=== PATIENT | female | born 1935 | race Caucasian/White ===

== ENCOUNTER 2021-06-20 19:23 | Inpatient (IN) | payer BC, MEDICARE ==
[~2021-06-20] VITALS: Ht 177.8 cm; Wt 56.1 kg
[2021-06-20 19:30] VITALS: BP 117/96
[2021-06-20 22:04] LABS: BASE EXCESS ABG 9 mmol/L (-3-3); HCO3 ABG 36 mmol/L (21-28); PO2 ABG 73 mmHg (65-108); SAT O2 ABG 94 % (92-99)
[2021-06-20] MEDS ORDERED: ZOLPIDEM 5 MG TABLET. PO PRN (22:15)
[2021-06-20] MEDS ORDERED: oxyCODONE/APAP 5/325 1 TAB TABLET PO PRN ×2 (22:15)
[2021-06-20] MEDS ORDERED: CALCIUM CARBONATE 500 MG TAB.CHEW PO PRN (22:15)
[2021-06-20] MEDS ORDERED: ELECTROLYTE (NON-ICU) PROTOCOL. MC PRN (22:15)
[2021-06-20] MEDS ORDERED: ONDANSETRON PF 4 MG/2 ML VIAL. IVP PRN (22:15)
[2021-06-20 22:43] LABS: PCO2 ABG 63 mmHg (35-46)
[2021-06-20 23:00] VITALS: BP 103/62
[2021-06-21 02:58] LABS: BASO % 0 % (0-3); EOS % 0 % (0-3); HEMOGLOBIN 8.8 g/dL (12.0-15.5); LYMPH # 0.7 x10^3/uL (1.0-4.8); LYMPH % 7 % (24-48); MEAN CORPUSCULAR HEMOGLOBIN 29 pg (25-35); MEAN CORPUSCULAR HGB CONC 31 g/dL (31-37); MEAN CORPUSCULAR VOLUME 91 fL (79-100); MONO # 0.1 x10^3/uL (0.0-1.1); MONO % 2 % (0-9); NEUT # 8.3 x10^3/uL (1.8-7.7); NEUT % 91 % (31-73); PLATELET COUNT 285 x10^3/uL (140-400); RED BLOOD COUNT 3.07 x10^6/uL (3.50-5.40); RED CELL DISTRIBUTION WIDTH 13.9 % (11.5-14.5); WHITE BLOOD COUNT 9.1 x10^3/uL (4.0-11.0)
[2021-06-21 03:00] VITALS: BP 112/66
[2021-06-21 03:21] LABS: ALBUMIN 2.2 g/dL (3.4-5.0); ALBUMIN/GLOBULIN RATIO 0.5 (1.0-1.7); CALCIUM 9.2 mg/dL (8.5-10.1); GFR 52.4; POTASSIUM 3.8 mmol/L (3.5-5.1); TOTAL BILIRUBIN 0.3 mg/dL (0.2-1.0); TOTAL PROTEIN 6.5 g/dL (6.4-8.2)
[2021-06-21] MEDS ORDERED: HEPARIN for SUB-Q USE 5,000 UNIT/ML VIAL. SQ SCH (06:00)
[2021-06-21 07:00] VITALS: BP 117/65
--- NOTE | 2021-06-21 08:32 | PDOC1 ---
History and Physical Date of Service: DOS: DATE: 06/21/21 TIME: 08:30 Chief Complaint: Chief Complain: Shortness of breath History of Present Illness: HPI: 85-year-old female with past medical history of COPD who comes in with shortness of breath at [facility]. Patient was transferred from there for pulmonology support. Patient states she was having shortness of breath for the past couple days and feeling weak. She does have some cough. Denies any fevers, chest pain, diarrhea, dysuria or abdominal pains. Patient lives with daughter and son-in-law at home and she is independent with some of her ADLs. She does rely on a walker. Patient currently is on BiPAP support. Her last ABG was 7.3 //. Past Medical/Surgical History: PMH/PSH: History of COPD Allergies: Allergies: Coded Allergies: No Known Drug Allergies (Unverified , 06/20/21) Family History: Family History: Reviewed with no relative findings in the chart Social History: Social History: Former smoker quit 1996. Denies any alcohol or drug abuse Current Medications: Current Medications Current Medications Ondansetron HCl (Zofran) 4 mg PRN Q6HRS PRN IVP NAUSEA/VOMITING; Start 06/20/21 at 22:15 Calcium Carbonate/ Glycine (Tums) 500 mg PRN Q3HRS PRN PO UPSET STOMACH; Start 06/20/21 at 22:15 Zolpidem Tartrate (Ambien) 5 mg PRN QHS PRN PO INSOMNIA, MAY REPEAT IN 1HR; Start 06/20/21 at 22:15 Info (Non-Icu Electrolyte Protocol) 1 ea PRN DAILY PRN MC SEE COMMENTS; Start 06/20/21 at 22:15 Oxycodone/ Acetaminophen (Percocet 5/325) 1 tab PRN Q4HRS PRN PO MILD PAIN, 1ST CHOICE; Start 06/20/21 at 22:15 Oxycodone/ Acetaminophen (Percocet 5/325) 2 tab PRN Q4HRS PRN PO MODERATE PAIN, SEVERE PAIN; Start 06/20/21 at 22:15 Senna/Docusate Sodium (Senna Plus) 1 tab BID PO ; Start 06/21/21 at 09:00 Heparin Sodium (Porcine) (Heparin Sodium) 5,000 unit Q8HRS SQ Last administered on 06/21/21at 06:11; Start 06/21/21 at 06:00 Prednisone (Prednisone) 40 mg DAILY08 PO ; Start 06/21/21 at 08:00 ROS: Review of Systems Review of System REVIEW OF SYSTEMS: GENERAL: Denies weakness SKIN: No bruising, hair changes or rashes. EYES: No blurred, double or loss of vision. NOSE AND THROAT: No history of nosebleeds, hoarseness or sore throat. HEART: No history of palpitations, chest pain or shortness of breath on exertion. LUNGS: Positive for shortness of breath GASTROINTESTINAL: Denies changes in appetite, nausea, vomiting, diarrhea or constipation. GENITOURINARY: No history of frequency, urgency, hesitancy or nocturia. NEUROLOGIC: Denies history of numbness, tingling, or tremor. PSYCHIATRIC: No history of panic, anxiety or depression. ENDOCRINE: No history of heat or cold intolerance, polyuria or polydipsia. EXTREMITIES: Denies joint pain, pain on walking or stiffness. Physical Exam: Vital Signs: Vital Signs Date Time Temp Pulse Resp B/P (MAP) Pulse Ox O2 Delivery O2 Flow Rate FiO2 06/21/21 07:45 97 06/21/21 07:00 98.2 87 18 117/65 (82) BiPAP/CPAP 98.2 Physcial Exam: General: Well developed, well nourished, no acute distress, well appearing while on BiPAP HEENT: Pupils equally round and reactive to light, EOMI, no discharge, normal conjunctiva Neck: Supple, no nuchal rigidity, no JVD, trachea midline, no tenderness Cardiac: RRR, no murmurs, no gallops, no rubs Chest/Lungs: Diminished throughout all lung soriano, no wheeze, no rhonchi, no crackles Abdomen: soft, non-distended, no guarding, no peritoneal signs, non-tender Back: No tenderness Extremities: no edema, pulses intact, non-tender,capillary refill <3 sec bilateral upper and lower extremities, Neuro: Alert and oriented x 4, no focal deficits, normal speech Labs: Labs: Laboratory Tests Test 06/20/21 21:55 06/21/21 02:40 O2 Saturation 94 % (92-99) Arterial Blood pH 7.37 (7.35-7.45) Arterial Blood pCO2 at Patient Temp 63 mmHg (35-46) Arterial Blood pO2 at Patient Temp 73 mmHg (65-108) Arterial Blood HCO3 36 mmol/L (21-28) Arterial Blood Base Excess 9 mmol/L (-3-3) White Blood Count 9.1 x10^3/uL (4.0-11.0) Red Blood Count 3.07 x10^6/uL (3.50-5.40) Hemoglobin 8.8 g/dL (12.0-15.5) Hematocrit 28.0 % (36.0-47.0) Mean Corpuscular Volume 91 fL (79-100) Mean Corpuscular Hemoglobin 29 pg (25-35) Mean Corpuscular Hemoglobin Concent 31 g/dL (31-37) Red Cell Distribution Width 13.9 % (11.5-14.5) Platelet Count 285 x10^3/uL (140-400) Neutrophils (%) (Auto) 91 % (31-73) Lymphocytes (%) (Auto) 7 % (24-48) Monocytes (%) (Auto) 2 % (0-9) Eosinophils (%) (Auto) 0 % (0-3) Basophils (%) (Auto) 0 % (0-3) Neutrophils # (Auto) 8.3 x10^3/uL (1.8-7.7) Lymphocytes # (Auto) 0.7 x10^3/uL (1.0-4.8) Monocytes # (Auto) 0.1 x10^3/uL (0.0-1.1) Eosinophils # (Auto) 0.0 x10^3/uL (0.0-0.7) Basophils # (Auto) 0.0 x10^3/uL (0.0-0.2) Sodium Level 149 mmol/L (136-145) Potassium Level 3.8 mmol/L (3.5-5.1) Chloride Level 106 mmol/L (98-107) Carbon Dioxide Level 36 mmol/L (21-32) Anion Gap 7 (6-14) Blood Urea Nitrogen 31 mg/dL (7-20) Creatinine 1.0 mg/dL (0.6-1.0) Estimated GFR (Cockcroft-Gault) 52.4 BUN/Creatinine Ratio 31 (6-20) Glucose Level 116 mg/dL (70-99) Calcium Level 9.2 mg/dL (8.5-10.1) Total Bilirubin 0.3 mg/dL (0.2-1.0) Aspartate Amino Transf (AST/SGOT) 12 U/L (15-37) Alanine Aminotransferase (ALT/SGPT) 16 U/L (14-59) Alkaline Phosphatase 64 U/L (46-116) Total Protein 6.5 g/dL (6.4-8.2) Albumin 2.2 g/dL (3.4-5.0) Albumin/Globulin Ratio 0.5 (1.0-1.7) Thyroid Stimulating Hormone (TSH) < 0.007 uIU/mL (0.358-3.74) Laboratory Tests Test 06/20/21 21:55 06/21/21 02:40 O2 Saturation 94 % (92-99) Arterial Blood pH 7.37 (7.35-7.45) Arterial Blood pCO2 at Patient Temp 63 mmHg (35-46) Arterial Blood pO2 at Patient Temp 73 mmHg (65-108) Arterial Blood HCO3 36 mmol/L (21-28) Arterial Blood Base Excess 9 mmol/L (-3-3) White Blood Count 9.1 x10^3/uL (4.0-11.0) Red Blood Count 3.07 x10^6/uL (3.50-5.40) Hemoglobin 8.8 g/dL (12.0-15.5) Hematocrit 28.0 % (36.0-47.0) Mean Corpuscular Volume 91 fL (79-100) Mean Corpuscular Hemoglobin 29 pg (25-35) Mean Corpuscular Hemoglobin Concent 31 g/dL (31-37) Red Cell Distribution Width 13.9 % (11.5-14.5) Platelet Count 285 x10^3/uL (140-400) Neutrophils (%) (Auto) 91 % (31-73) Lymphocytes (%) (Auto) 7 % (24-48) Monocytes (%) (Auto) 2 % (0-9) Eosinophils (%) (Auto) 0 % (0-3) Basophils (%) (Auto) 0 % (0-3) Neutrophils # (Auto) 8.3 x10^3/uL (1.8-7.7) Lymphocytes # (Auto) 0.7 x10^3/uL (1.0-4.8) Monocytes # (Auto) 0.1 x10^3/uL (0.0-1.1) Eosinophils # (Auto) 0.0 x10^3/uL (0.0-0.7) Basophils # (Auto) 0.0 x10^3/uL (0.0-0.2) Sodium Level 149 mmol/L (136-145) Potassium Level 3.8 mmol/L (3.5-5.1) Chloride Level 106 mmol/L (98-107) Carbon Dioxide Level 36 mmol/L (21-32) Anion Gap 7 (6-14) Blood Urea Nitrogen 31 mg/dL (7-20) Creatinine 1.0 mg/dL (0.6-1.0) Estimated GFR (Cockcroft-Gault) 52.4 BUN/Creatinine Ratio 31 (6-20) Glucose Level 116 mg/dL (70-99) Calcium Level 9.2 mg/dL (8.5-10.1) Total Bilirubin 0.3 mg/dL (0.2-1.0) Aspartate Amino Transf (AST/SGOT) 12 U/L (15-37) Alanine Aminotransferase (ALT/SGPT) 16 U/L (14-59) Alkaline Phosphatase 64 U/L (46-116) Total Protein 6.5 g/dL (6.4-8.2) Albumin 2.2 g/dL (3.4-5.0) Albumin/Globulin Ratio 0.5 (1.0-1.7) Thyroid Stimulating Hormone (TSH) < 0.007 uIU/mL (0.358-3.74) Images: Images CXR significant for small left pleural effusion and adjacent opacities. Assessment/Plan Assessment/Plan Acute hypoxic respiratory failure requiring BiPAP support Community-acquired pneumonia, possible gram-negative organisms History of COPD Admit to hospitalist service for further management Continue empiric IV antibiotics Pending MRSA screen and Legionella urine antigen Pulmonary consult O2 supplementation to maintain O2 saturation between 88 to 92% BiPAP as needed Repeat ABG as needed Lovenox for DVT prophylaxis Protonix while on steroids GI prophylaxis ADA diet CODE STATUS assumed full code Discussed with RN and SW Disposition pending pulmonary evaluation DPOA: Daughter In addition to my E/M visit, advance care planning done with A total time of 20 minutes was spent from 9:00 to 920 face to face in discussion regarding the patient's goals of care, CODE STATUS. Justifications for Admission Other Justification SERGIO DE LEÓN MD Jun 21, 2021 08:32
[2021-06-21 10:13] LABS: BASE EXCESS ABG 9 mmol/L (-3-3); HCO3 ABG 35 mmol/L (21-28); PCO2 ABG 53 mmHg (35-46); PO2 ABG 78 mmHg (65-108); SAT O2 ABG 95 % (92-99)
[2021-06-21 10:16] LABS: FIO2 ABG 30
[2021-06-21] MEDS ORDERED: PROCHLORPERAZINE 10 MG/2 ML VIAL. IV PRN (10:30)
[2021-06-21] MEDS ORDERED: SENNOSIDES 8.6 MG TABLET PO PRN (10:30)
[2021-06-21] MEDS ORDERED: ZOLPIDEM 5 MG TABLET. PO PRN (10:30)
[2021-06-21] MEDS ORDERED: LORazepam 0.5 MG TABLET PO PRN (10:30)
[2021-06-21] MEDS ORDERED: diphenhydrAMINE HCL 25 MG CAPSULE PO PRN ×2 (10:30)
[2021-06-21] MEDS ORDERED: ONDANSETRON PF 4 MG/2 ML VIAL. IVP PRN (10:30)
[2021-06-21] MEDS ORDERED: diphenhydrAMINE 50 MG/ML VIAL IVP PRN (10:30)
[2021-06-21] MEDS ORDERED: DEXTROSE 50% 25 GM / 50ML DISP.SYRIN. IV PRN (10:30)
[2021-06-21] MEDS ORDERED: ACETAMINOPHEN 325 MG TABLET. PO PRN (10:30)
[2021-06-21] MEDS ORDERED: DOCUSATE SODIUM 100 MG CAPSULE. PO PRN (10:30)
[2021-06-21 11:00] VITALS: BP 115/56
[2021-06-21] MEDS ORDERED: ENOXAPARIN 40 MG/0.4 ML SYRINGE. SQ SCH (11:00)
[2021-06-21] MEDS: DOXYCYCLINE HYCLATE 100 MG TABLET PO SCH ×2 (11:04→20:46)
[2021-06-21] MEDS: PANTOPRAZOLE 40 MG TABLET.DR. PO SCH (11:04)
[2021-06-21] MEDS: predniSONE 20 MG TABLET PO SCH (11:04)
[2021-06-21] MEDS: SENNOSIDES/DOCUSATE 8.6/50MG TABLET. PO SCH ×2 (11:04→20:47)
[2021-06-21] MEDS: cefTRIAXone IV Push 1 GM VIAL. IVP SCH (11:05)
--- NOTE | 2021-06-21 13:19 | NUR ---
Wound on R coccyx, buttock area not pictured d/t no camera available. Wound measured and wound dressing changed.
[2021-06-21 15:00] VITALS: BP 121/59
[2021-06-21 15:46] LABS: BASE EXCESS ABG 10 mmol/L (-3-3); HCO3 ABG 36 mmol/L (21-28); PCO2 ABG 55 mmHg (35-46); PO2 ABG 87 mmHg (65-108); SAT O2 ABG 96 % (92-99)
[2021-06-21 15:47] LABS: FIO2 ABG 30
--- NOTE | 2021-06-21 17:41 | NUR ---
Patient given a break off the bipap, 2L per nasal cannula applied at 1645. Will allow patient to have break, explained that patient should wear bipap through the night. Will continue to monitor.
[2021-06-21 19:00] VITALS: BP 123/58
[2021-06-21] MEDS: ENOXAPARIN 40 MG/0.4 ML SYRINGE. SQ SCH (20:46)
[2021-06-21 23:00] VITALS: BP 116/56
--- NOTE | 2021-06-21 23:01 | NUR ---
AMISHA DOES NOT WANT TO WEAR BIPAP DURING THE NIGHT. AFTER LOOKING AT ABG RESULTS TREND, INCLUDING THE ABGS AT [facility], IT SEEMS THAT PATIENT DOES NOT NEED TO WEAR BIPAP AT TINS TIME. PATIENT'S ABGS SHOW FULLY COMPENSATED RESPIRATORY ACIDOSIS, WITHOUT HYPOXEMIA. I WILL CONTINUE TO MONITOR PATIENT AND INTERVENE NEEDED.
[2021-06-22 02:32] VITALS: BP 113/60
--- NOTE | 2021-06-22 06:18 | RAD ---
XR CHEST 1V History: Shortness of breath. Comparison: 06/20/2021 Technique: Portable AP radiograph of the chest. Findings: The lungs are hyperinflated. There is prominence of the pulmonary interstitial markings. Increased co nspicuity of right lower lobe infiltrates. Small left effusion with left basilar opacities redemonstr ated. No pneumothorax. Right greater than left apical scarring. Prominent heart size. Calcification o f the aorta. Senescent changes of the spine and shoulders. Impression: 1. Increased conspicuity of right basilar opacities and persistent left basilar opacities concerning for multifocal infection. Electronically signed by: Clinton Kurtz MD (06/22/2021 6:15 AM) [facility]
--- NOTE | 2021-06-22 06:55 | CONS ---
DATE OF CONSULTATION: 06/22/2021 REASON FOR CONSULTATION: I was asked to see this 85-year-old lady for acute on chronic respiratory failure. HISTORY OF PRESENT ILLNESS: She is very hard of hearing. She has a history of 12-byyl-fjva smoking, quit smoking in 1996. She is on oxygen 2 liters per minute via nasal cannula. She does not know how long she has had shortness of breath, but her day nurse noticed hypoxemia and she did have shortness of breath. She presented to [facility] ER and transferred to [facility] for further evaluation. She was on BiPAP on arrival. She is now on 3 liters of oxygen. Her shortness of breath has improved. She does have cough with not much sputum production. She denies fever or chills. PAST MEDICAL HISTORY: COPD, chronic respiratory failure. ALLERGIES: No known drug allergies. MEDICATIONS: Currently, she is on Rocephin, doxycycline, Protonix, Lovenox. SOCIAL HISTORY: History of 34-fari-bfml smoking, quit smoking in 1996. FAMILY HISTORY: Hypertension. REVIEW OF SYSTEMS: As mentioned as above, other systems otherwise negative. PHYSICAL EXAMINATION: GENERAL: She is an elderly lady. VITAL SIGNS: Her O2 saturation on 3 liters of oxygen is 96%, respiratory rate 18, heart rate 87, blood pressure 113/60, temperature 97.7. HEENT: Normocephalic, atraumatic. Pupils equal, round, reactive to light. Nose is clear. Throat: There is shallow oropharynx. NECK: There is no lymphadenopathy or thyromegaly. CARDIOVASCULAR: Distant heart sounds. CHEST: Inspection is normal. LUNGS: Bilateral diminished breath sounds, bibasilar crackles, dullness at the left base. ABDOMEN: Soft. Bowel sounds are good. There is no mass. EXTREMITIES: There is trace edema. LYMPHATICS: There is no lymphadenopathy. NEUROLOGIC: Alert and oriented. LABORATORY DATA: I reviewed the following lab data: Chest x-ray shows bibasilar infiltrate, right more than left, slightly worse left small pleural effusion. WBC 9.1, hemoglobin 8.8, platelet 285. Influenza A and B pending. Rapid COVID negative. Sodium 149, potassium 3.8, chloride 106, CO2 36, BUN 31, creatinine 1. Procalcitonin 0.44. ABG on 06/20, 2155 hours, pH 7.37, pCO2 of 63, pO2 of 73. Yesterday afternoon, pH 7.43, pCO2 55, pO2 87 and 30% FiO2. IMPRESSION: 1. Acute on chronic respiratory failure, multifactorial in etiology including acute exacerbation of chronic obstructive pulmonary disease, pneumonia, rule out aspiration. 2. Abnormal chest x-ray. 3. Acute exacerbation of chronic obstructive pulmonary disease. 4. Pneumonia, rule out aspiration. 5. Ex-smoker. PLAN AND RECOMMENDATIONS: 1. Titrate FiO2 to keep O2 saturation 90%. 2. Continue BiPAP p.r.n. during day, continuously at night. 3. Follow up MRSA screen and legionella and strep pneumonia antigen and influenza A and B. Apparently, they are done at [facility]. 4. Continue prednisone 40 mg daily. 5. Lovenox for deep venous thrombosis prophylaxis. 6. Protonix for stress ulcer prophylaxis. 7. Continue Rocephin and doxycycline. 8. I will ask speech to evaluate her to make sure she does not have aspiration. 9. The findings and recommendations were discussed with RN and the patient. Thank you very much for allowing me to participate in care of this very nice lady. EZRA BOLDEN: Brain TID: [id number]
[2021-06-22 07:00] VITALS: BP 140/65
[2021-06-22 07:24] LABS: BASO % 0 % (0-3); EOS % 0 % (0-3); HEMOGLOBIN 9.8 g/dL (12.0-15.5); LYMPH # 1.2 x10^3/uL (1.0-4.8); LYMPH % 13 % (24-48); MEAN CORPUSCULAR HEMOGLOBIN 29 pg (25-35); MEAN CORPUSCULAR HGB CONC 32 g/dL (31-37); MEAN CORPUSCULAR VOLUME 90 fL (79-100); MONO # 0.7 x10^3/uL (0.0-1.1); MONO % 7 % (0-9); NEUT # 7.7 x10^3/uL (1.8-7.7); NEUT % 80 % (31-73); PLATELET COUNT 369 x10^3/uL (140-400); RED BLOOD COUNT 3.43 x10^6/uL (3.50-5.40); RED CELL DISTRIBUTION WIDTH 13.4 % (11.5-14.5); WHITE BLOOD COUNT 9.7 x10^3/uL (4.0-11.0)
[2021-06-22 07:37] LABS: CALCIUM 9.8 mg/dL (8.5-10.1); CREATININE 0.9 mg/dL (0.6-1.0); GFR 59.2; MAGNESIUM 2.4 mg/dL (1.8-2.4); PHOSPHORUS 3.7 mg/dL (2.6-4.7); POTASSIUM 3.6 mmol/L (3.5-5.1)
[2021-06-22] MEDS: PANTOPRAZOLE 40 MG TABLET.DR. PO SCH (07:56)
[2021-06-22] MEDS: LACTOBACILLUS RHAMNOSUS GG 1 CAPSULE. PO SCH ×2 (07:56→21:01)
[2021-06-22] MEDS: SENNOSIDES/DOCUSATE 8.6/50MG TABLET. PO SCH ×2 (07:56→21:00)
[2021-06-22] MEDS: DOXYCYCLINE HYCLATE 100 MG TABLET PO SCH ×2 (07:56→21:01)
[2021-06-22] MEDS: predniSONE 20 MG TABLET PO SCH (07:56)
--- NOTE | 2021-06-22 09:28 | PDOC ---
[employer] PROGRESS NOTE Date of Service DOS: DATE: 06/22/21 TIME: 09:27 Chief Complaint Chief Complaint Assessment/Plan Acute hypoxic respiratory failure requiring BiPAP support Community-acquired pneumonia, possible gram-negative organisms History of COPD Admit to hospitalist service for further management Continue empiric IV antibiotics Pending MRSA screen and Legionella urine antigen Pulmonary recommendations O2 supplementation to maintain O2 saturation between 88 to 92%, BiPAP as needed and continuous at night Repeat ABG as needed Lovenox for DVT prophylaxis Protonix while on steroids GI prophylaxis ADA diet CODE STATUS assumed full code Discussed with RN and SW Disposition pending pulmonary evaluation DPOA: Daughter History of Present Illness History of Present Illness 85-year-old female with past medical history of COPD who comes in with shortness of breath at [facility] ER. Patient was transferred from there for pulmonology support. Patient states she was having shortness of breath for the past couple days and feeling weak. She does have some cough. Denies any fevers, chest pain, diarrhea, dysuria or abdominal pains. Patient lives with daughter and son-in-law at home and she is independent with some of her ADLs. She does rely on a walker. Patient currently is on BiPAP support. Her last ABG was 7.3 763/73/36. 06/22/2021 No acute events overnight. Patient seen examined bedside. Currently patient saturating 93% on 3 L nasal cannula. AF and VSS. No complaints from patient at this time. Clinical improvement. Patient's chart, labs, images were reviewed and discussed with RN Vitals/I&O Vitals/I&O: Vital Signs Date Time Temp Pulse Resp B/P (MAP) Pulse Ox O2 Delivery O2 Flow Rate FiO2 06/22/21 07:00 98.1 92 22 140/65 (90) 93 Nasal Cannula 3.0 98.1 I & O 06/21/21 06/21/21 06/22/21 15:00 23:00 07:00 Intake Total 50 ml 0 ml Balance 50 ml 0 ml Physical Exam General: Alert, Oriented X3, Cooperative Heart: Regular rate Lungs: Clear Abdomen: Normal bowel sounds Extremities: No clubbing Skin: No rashes Labs Labs: Laboratory Tests Test 06/21/21 10:04 06/21/21 13:40 06/22/21 05:35 O2 Saturation 95 % (92-99) 96 % (92-99) Arterial Blood pH 7.44 (7.35-7.45) 7.43 (7.35-7.45) Arterial Blood pCO2 at Patient Temp 53 mmHg (35-46) 55 mmHg (35-46) Arterial Blood pO2 at Patient Temp 78 mmHg (65-108) 87 mmHg (65-108) Arterial Blood HCO3 35 mmol/L (21-28) 36 mmol/L (21-28) Arterial Blood Base Excess 9 mmol/L (-3-3) 10 mmol/L (-3-3) FiO2 30 30 White Blood Count 9.7 x10^3/uL (4.0-11.0) Red Blood Count 3.43 x10^6/uL (3.50-5.40) Hemoglobin 9.8 g/dL (12.0-15.5) Hematocrit 31.0 % (36.0-47.0) Mean Corpuscular Volume 90 fL (79-100) Mean Corpuscular Hemoglobin 29 pg (25-35) Mean Corpuscular Hemoglobin Concent 32 g/dL (31-37) Red Cell Distribution Width 13.4 % (11.5-14.5) Platelet Count 369 x10^3/uL (140-400) Neutrophils (%) (Auto) 80 % (31-73) Lymphocytes (%) (Auto) 13 % (24-48) Monocytes (%) (Auto) 7 % (0-9) Eosinophils (%) (Auto) 0 % (0-3) Basophils (%) (Auto) 0 % (0-3) Neutrophils # (Auto) 7.7 x10^3/uL (1.8-7.7) Lymphocytes # (Auto) 1.2 x10^3/uL (1.0-4.8) Monocytes # (Auto) 0.7 x10^3/uL (0.0-1.1) Eosinophils # (Auto) 0.0 x10^3/uL (0.0-0.7) Basophils # (Auto) 0.0 x10^3/uL (0.0-0.2) Sodium Level 146 mmol/L (136-145) Potassium Level 3.6 mmol/L (3.5-5.1) Chloride Level 104 mmol/L (98-107) Carbon Dioxide Level 36 mmol/L (21-32) Anion Gap 6 (6-14) Blood Urea Nitrogen 36 mg/dL (7-20) Creatinine 0.9 mg/dL (0.6-1.0) Estimated GFR (Cockcroft-Gault) 59.2 Glucose Level 80 mg/dL (70-99) Calcium Level 9.8 mg/dL (8.5-10.1) Phosphorus Level 3.7 mg/dL (2.6-4.7) Magnesium Level 2.4 mg/dL (1.8-2.4) Comment Review of Relevant I have reviewed the following items chun (where applicable) has been applied. Medications: Current Medications Medications (Trade) Dose Ordered Sig/Nikkie Route PRN Reason Start Time Stop Time Status Last Admin Dose Admin Pantoprazole Sodium (Protonix) 40 mg DAILYAC PO 06/21/21 11:00 06/22/21 07:56 Ceftriaxone Sodium (Rocephin) 1 gm Q24H IVP 06/21/21 11:00 06/21/21 11:05 Enoxaparin Sodium (Lovenox 40mg Syringe) 40 mg QHS SQ 06/21/21 21:00 06/21/21 20:46 Doxycycline Hyclate (Vibra-Tab) 100 mg BID PO 06/21/21 11:00 06/22/21 07:56 Lactobacillus Rhamnosus (Culturelle) 1 cap BID PO 06/22/21 09:00 06/22/21 07:56 Justifications for Admission Other Justification COPD exacerbation SERGIO DE LEÓN MD Jun 22, 2021 09:28
[2021-06-22 11:00] VITALS: BP 155/71
[2021-06-22] MEDS: cefTRIAXone IV Push 1 GM VIAL. IVP SCH (11:22)
[2021-06-22 11:44] LABS: CLARITY,URINE CLOUDY; COLOR,URINE YELLOW
[2021-06-22 11:45] LABS: BILIRUBIN,URINE NEGATIVE (NEG); NITRITE,URINE NEGATIVE (NEG); PH,URINE 5.5 (<5.0-8.0); PROTEIN,URINE NEGATIVE (NEG-TRACE); UROBILINOGEN,URINE 0.2 mg/dL (0.2 mg/dL)
[2021-06-22 11:49] LABS: BACTERIA,URINE FEW /HPF (0-FEW)
[2021-06-22 15:00] VITALS: BP 128/61
[2021-06-22 19:00] VITALS: BP 131/60
[2021-06-22] MEDS: ENOXAPARIN 40 MG/0.4 ML SYRINGE. SQ SCH (21:02)
[2021-06-22 23:00] VITALS: BP 134/62
[2021-06-23 03:00] VITALS: BP 156/85
[2021-06-23 07:00] VITALS: BP 152/73
[2021-06-23 07:19] LABS: CALCIUM 9.9 mg/dL (8.5-10.1); CREATININE 0.9 mg/dL (0.6-1.0); GFR 59.2; MAGNESIUM 2.3 mg/dL (1.8-2.4); POTASSIUM 3.8 mmol/L (3.5-5.1)
[2021-06-23 07:31] LABS: BASO # 0.1 x10^3/uL (0.0-0.2); BASO % 1 % (0-3); EOS % 0 % (0-3); HEMOGLOBIN 9.9 g/dL (12.0-15.5); LYMPH # 1.7 x10^3/uL (1.0-4.8); LYMPH % 18 % (24-48); MEAN CORPUSCULAR HEMOGLOBIN 29 pg (25-35); MEAN CORPUSCULAR HGB CONC 32 g/dL (31-37); MEAN CORPUSCULAR VOLUME 90 fL (79-100); MONO # 0.9 x10^3/uL (0.0-1.1); MONO % 10 % (0-9); NEUT # 6.8 x10^3/uL (1.8-7.7); NEUT % 71 % (31-73); PLATELET COUNT 373 x10^3/uL (140-400); RED BLOOD COUNT 3.44 x10^6/uL (3.50-5.40); RED CELL DISTRIBUTION WIDTH 13.5 % (11.5-14.5); WHITE BLOOD COUNT 9.6 x10^3/uL (4.0-11.0)
[2021-06-23] MEDS: PANTOPRAZOLE 40 MG TABLET.DR. PO SCH (07:54)
[2021-06-23] MEDS: DOXYCYCLINE HYCLATE 100 MG TABLET PO SCH ×2 (09:21→20:55)
[2021-06-23] MEDS: LACTOBACILLUS RHAMNOSUS GG 1 CAPSULE. PO SCH ×2 (09:21→20:54)
[2021-06-23] MEDS: SENNOSIDES/DOCUSATE 8.6/50MG TABLET. PO SCH ×2 (09:21→20:54)
[2021-06-23] MEDS: predniSONE 20 MG TABLET PO SCH (09:21)
[2021-06-23 10:30] VITALS: BP 134/73
[2021-06-23] MEDS ORDERED: BARIUM SULFATE 40% (APPLE) 148 GM PWD. PO ONE (11:00)
--- NOTE | 2021-06-23 11:15 | PDOC ---
PULMONARY PROGRESS NOTES DATE: 06/23/21 TIME: 11:13 Subjective Patient seen in radiology department having video swallow. Denies any shortness of breath. Vitals Vital Signs Date Time Temp Pulse Resp B/P (MAP) Pulse Ox O2 Delivery O2 Flow Rate FiO2 06/23/21 10:30 98.2 92 18 134/73 (93) 92 Nasal Cannula 2.0 98.2 General: Alert, No acute distress Lungs: Clear Cardiovascular: S1 Neuro Exam: Alert Extremities: No Edema Labs Laboratory Tests Test 06/21/21 13:40 06/22/21 05:35 06/22/21 10:49 06/23/21 06:40 O2 Saturation 96 % (92-99) Arterial Blood pH 7.43 (7.35-7.45) Arterial Blood pCO2 at Patient Temp 55 mmHg (35-46) Arterial Blood pO2 at Patient Temp 87 mmHg (65-108) Arterial Blood HCO3 36 mmol/L (21-28) Arterial Blood Base Excess 10 mmol/L (-3-3) FiO2 30 White Blood Count 9.7 x10^3/uL (4.0-11.0) 9.6 x10^3/uL (4.0-11.0) Red Blood Count 3.43 x10^6/uL (3.50-5.40) 3.44 x10^6/uL (3.50-5.40) Hemoglobin 9.8 g/dL (12.0-15.5) 9.9 g/dL (12.0-15.5) Hematocrit 31.0 % (36.0-47.0) 31.0 % (36.0-47.0) Mean Corpuscular Volume 90 fL (79-100) 90 fL (79-100) Mean Corpuscular Hemoglobin 29 pg (25-35) 29 pg (25-35) Mean Corpuscular Hemoglobin Concent 32 g/dL (31-37) 32 g/dL (31-37) Red Cell Distribution Width 13.4 % (11.5-14.5) 13.5 % (11.5-14.5) Platelet Count 369 x10^3/uL (140-400) 373 x10^3/uL (140-400) Neutrophils (%) (Auto) 80 % (31-73) 71 % (31-73) Lymphocytes (%) (Auto) 13 % (24-48) 18 % (24-48) Monocytes (%) (Auto) 7 % (0-9) 10 % (0-9) Eosinophils (%) (Auto) 0 % (0-3) 0 % (0-3) Basophils (%) (Auto) 0 % (0-3) 1 % (0-3) Neutrophils # (Auto) 7.7 x10^3/uL (1.8-7.7) 6.8 x10^3/uL (1.8-7.7) Lymphocytes # (Auto) 1.2 x10^3/uL (1.0-4.8) 1.7 x10^3/uL (1.0-4.8) Monocytes # (Auto) 0.7 x10^3/uL (0.0-1.1) 0.9 x10^3/uL (0.0-1.1) Eosinophils # (Auto) 0.0 x10^3/uL (0.0-0.7) 0.0 x10^3/uL (0.0-0.7) Basophils # (Auto) 0.0 x10^3/uL (0.0-0.2) 0.1 x10^3/uL (0.0-0.2) Sodium Level 146 mmol/L (136-145) 147 mmol/L (136-145) Potassium Level 3.6 mmol/L (3.5-5.1) 3.8 mmol/L (3.5-5.1) Chloride Level 104 mmol/L (98-107) 107 mmol/L (98-107) Carbon Dioxide Level 36 mmol/L (21-32) 39 mmol/L (21-32) Anion Gap 6 (6-14) 1 (6-14) Blood Urea Nitrogen 36 mg/dL (7-20) 27 mg/dL (7-20) Creatinine 0.9 mg/dL (0.6-1.0) 0.9 mg/dL (0.6-1.0) Estimated GFR (Cockcroft-Gault) 59.2 59.2 Glucose Level 80 mg/dL (70-99) 90 mg/dL (70-99) Calcium Level 9.8 mg/dL (8.5-10.1) 9.9 mg/dL (8.5-10.1) Phosphorus Level 3.7 mg/dL (2.6-4.7) Magnesium Level 2.4 mg/dL (1.8-2.4) 2.3 mg/dL (1.8-2.4) Urine Collection Type Unknown Urine Color Yellow Urine Clarity Cloudy Urine pH 5.5 (<5.0-8.0) Urine Specific [place] 1.015 (1.000-1.030) Urine Protein Negative mg/dL (NEG-TRACE) Urine Glucose (UA) Negative mg/dL (NEG) Urine Ketones (Stick) Negative mg/dL (NEG) Urine Blood Moderate (NEG) Urine Nitrite Negative (NEG) Urine Bilirubin Negative (NEG) Urine Urobilinogen Dipstick 0.2 mg/dL (0.2 mg/dL) Urine Leukocyte Esterase Negative (NEG) Urine RBC 1-2 /HPF (0-2) Urine WBC 5-10 /HPF (0-4) Urine Squamous Epithelial Cells Few /LPF Urine Transitional Epithelial Cells Occ /LPF Urine Bacteria Few /HPF (0-FEW) Laboratory Tests Test 06/23/21 06:40 White Blood Count 9.6 x10^3/uL (4.0-11.0) Red Blood Count 3.44 x10^6/uL (3.50-5.40) Hemoglobin 9.9 g/dL (12.0-15.5) Hematocrit 31.0 % (36.0-47.0) Mean Corpuscular Volume 90 fL (79-100) Mean Corpuscular Hemoglobin 29 pg (25-35) Mean Corpuscular Hemoglobin Concent 32 g/dL (31-37) Red Cell Distribution Width 13.5 % (11.5-14.5) Platelet Count 373 x10^3/uL (140-400) Neutrophils (%) (Auto) 71 % (31-73) Lymphocytes (%) (Auto) 18 % (24-48) Monocytes (%) (Auto) 10 % (0-9) Eosinophils (%) (Auto) 0 % (0-3) Basophils (%) (Auto) 1 % (0-3) Neutrophils # (Auto) 6.8 x10^3/uL (1.8-7.7) Lymphocytes # (Auto) 1.7 x10^3/uL (1.0-4.8) Monocytes # (Auto) 0.9 x10^3/uL (0.0-1.1) Eosinophils # (Auto) 0.0 x10^3/uL (0.0-0.7) Basophils # (Auto) 0.1 x10^3/uL (0.0-0.2) Sodium Level 147 mmol/L (136-145) Potassium Level 3.8 mmol/L (3.5-5.1) Chloride Level 107 mmol/L (98-107) Carbon Dioxide Level 39 mmol/L (21-32) Anion Gap 1 (6-14) Blood Urea Nitrogen 27 mg/dL (7-20) Creatinine 0.9 mg/dL (0.6-1.0) Estimated GFR (Cockcroft-Gault) 59.2 Glucose Level 90 mg/dL (70-99) Calcium Level 9.9 mg/dL (8.5-10.1) Magnesium Level 2.3 mg/dL (1.8-2.4) Impression . 1. Acute on chronic hypercapnic respiratory failure, multifactorial in etiology including acute exacerbation of chronic obstructive pulmonary disease, pneumonia, rule out aspiration. 2. Abnormal chest x-ray. With chronic appearing right upper lobe infiltrate and some prominent basal markings 3. Acute exacerbation of chronic obstructive pulmonary disease. 4. Pneumonia, rule out aspiration. 5. Ex-smoker. Plan . 1. Titrate FiO2 to keep O2 saturation 90%. Hypercapnia is now compensated. 2. Continue BiPAP p.r.n. during day, continuously at night. 3. Follow up MRSA screen and legionella and strep pneumonia antigen and influenza A and B. Apparently, they are done at [facility]. 4. Continue prednisone 40 mg daily. 5. Lovenox for deep venous thrombosis prophylaxis. 6. Protonix for stress ulcer prophylaxis. 7. Continue Rocephin and doxycycline. 8. I will ask speech to evaluate her to make sure she does not have aspiration. NI MARLEY MD Jun 23, 2021 11:15
--- NOTE | 2021-06-23 11:29 | PDOC ---
[employer] PROGRESS NOTE Date of Service DOS: DATE: 06/23/21 TIME: 11:27 Chief Complaint Chief Complaint Assessment/Plan Acute hypoxic respiratory failure requiring BiPAP support Community-acquired pneumonia, possible gram-negative organisms History of COPD Admit to hospitalist service for further management Continue empiric IV antibiotics Pending MRSA screen and Legionella urine antigen Pulmonary recommendations O2 supplementation to maintain O2 saturation between 88 to 92%, BiPAP as needed and continuous at night Repeat ABG as needed Lovenox for DVT prophylaxis Protonix while on steroids GI prophylaxis ADA diet CODE STATUS assumed full code Discussed with RN and SW Disposition pending pulmonary evaluation DPOA: Daughter History of Present Illness History of Present Illness 85-year-old female with past medical history of COPD who comes in with shortness of breath at [facility] ER. Patient was transferred from there for pulmonology support. Patient states she was having shortness of breath for the past couple days and feeling weak. She does have some cough. Denies any fevers, chest pain, diarrhea, dysuria or abdominal pains. Patient lives with daughter and son-in-law at home and she is independent with some of her ADLs. She does rely on a walker. Patient currently is on BiPAP support. Her last ABG was 7.3 763/73/36. 06/22/2021 No acute events overnight. Patient seen examined bedside. Currently patient saturating 93% on 3 L nasal cannula. AF and VSS. No complaints from patient at this time. Clinical improvement. Patient's chart, labs, images were reviewed and discussed with RN 06/23/2021 No acute events overnight. Patient seen examined bedside. Saturating 95% on 2 L nasal cannula. Not dyspneic upon my encounter. Speech's ED evaluated and recommended video swallow. Pending video swallow today. Pending PT OT evaluation for possible SNF placement. Patient's chart, labs, images were reviewed and discussed with RN Vitals/I&O Vitals/I&O: Vital Signs Date Time Temp Pulse Resp B/P (MAP) Pulse Ox O2 Delivery O2 Flow Rate FiO2 06/23/21 10:30 98.2 92 18 134/73 (93) 92 Nasal Cannula 2.0 98.2 I & O 06/22/21 06/22/21 06/23/21 15:00 23:00 07:00 Intake Total 240 ml 100 ml Balance 240 ml 100 ml Physical Exam General: Alert, Oriented X3, Cooperative Heart: Regular rate Lungs: Clear Abdomen: Normal bowel sounds Extremities: No clubbing Skin: No rashes Labs Labs: Laboratory Tests Test 06/23/21 06:40 White Blood Count 9.6 x10^3/uL (4.0-11.0) Red Blood Count 3.44 x10^6/uL (3.50-5.40) Hemoglobin 9.9 g/dL (12.0-15.5) Hematocrit 31.0 % (36.0-47.0) Mean Corpuscular Volume 90 fL (79-100) Mean Corpuscular Hemoglobin 29 pg (25-35) Mean Corpuscular Hemoglobin Concent 32 g/dL (31-37) Red Cell Distribution Width 13.5 % (11.5-14.5) Platelet Count 373 x10^3/uL (140-400) Neutrophils (%) (Auto) 71 % (31-73) Lymphocytes (%) (Auto) 18 % (24-48) Monocytes (%) (Auto) 10 % (0-9) Eosinophils (%) (Auto) 0 % (0-3) Basophils (%) (Auto) 1 % (0-3) Neutrophils # (Auto) 6.8 x10^3/uL (1.8-7.7) Lymphocytes # (Auto) 1.7 x10^3/uL (1.0-4.8) Monocytes # (Auto) 0.9 x10^3/uL (0.0-1.1) Eosinophils # (Auto) 0.0 x10^3/uL (0.0-0.7) Basophils # (Auto) 0.1 x10^3/uL (0.0-0.2) Sodium Level 147 mmol/L (136-145) Potassium Level 3.8 mmol/L (3.5-5.1) Chloride Level 107 mmol/L (98-107) Carbon Dioxide Level 39 mmol/L (21-32) Anion Gap 1 (6-14) Blood Urea Nitrogen 27 mg/dL (7-20) Creatinine 0.9 mg/dL (0.6-1.0) Estimated GFR (Cockcroft-Gault) 59.2 Glucose Level 90 mg/dL (70-99) Calcium Level 9.9 mg/dL (8.5-10.1) Magnesium Level 2.3 mg/dL (1.8-2.4) Comment Review of Relevant I have reviewed the following items chun (where applicable) has been applied. Medications: Current Medications Medications (Trade) Dose Ordered Sig/Nikkie Route PRN Reason Start Time Stop Time Status Last Admin Dose Admin Barium Sulfate (Varibar Thin Liquid Apple) 148 gm 1X ONCE PO 06/23/21 11:00 06/23/21 11:01 DC 06/23/21 11:10 Justifications for Admission Other Justification COPD exacerbation SERGIO DE LEÓN MD Jun 23, 2021 11:28
[2021-06-23] MEDS: cefTRIAXone IV Push 1 GM VIAL. IVP SCH (11:31)
--- NOTE | 2021-06-23 12:53 | NUR ---
SW following. Discussed with RN, pt from home with daughter, 2L, cardiac diet. Pt had a video swallow today- RN advised she needs to speak with pt's daughter about result. Therapy recommending SNF. SW awaiting RN conversation with pt's daughter before continuing with discharge planning. SW will continue to follow.
--- NOTE | 2021-06-23 13:01 | RAD ---
DG VIDEO SWALLOW STUDY Reason for Examination: Reason: dysphagia FLUORO TIME 3.0 MIN / With the patient in the lateral projection, using video observation and recording, the patient was as ked to swallow barium liquid, barium nectar, barium impregnated pudding, and chew and swallow barium impregnated mixed consistency and cracker. Deep penetration aspiration with thin and nectar consistencies. Improved with chin tuck maneuver. Pir iform and vallecular residual with thick consistencies. No definite aspiration although evaluation is degraded due to overlying structures. Interpretation (personally supervised): Total fluoroscopy time was 3 minutes Fluoroscopic spot images: 1 Impression: 1. Deep penetration and aspiration with thin and nectar consistencies. No definite aspiration. Please refer to speech pathology notes for further details. Electronically signed by: Anthony Hernandez DO (06/23/2021 12:58 PM) [id number]
[2021-06-23 14:58] VITALS: BP 129/69
[2021-06-23 19:00] VITALS: BP 144/65
[2021-06-23] MEDS: ENOXAPARIN 40 MG/0.4 ML SYRINGE. SQ SCH (20:53)
[2021-06-23 23:04] VITALS: BP 148/81
[2021-06-24 03:31] VITALS: BP 163/81
[2021-06-24 07:00] VITALS: BP 155/85
[2021-06-24 07:40] LABS: BASO % 0 % (0-3); EOS % 0 % (0-3); HEMATOCRIT 31.9 % (36.0-47.0); HEMOGLOBIN 10.4 g/dL (12.0-15.5); LYMPH # 1.3 x10^3/uL (1.0-4.8); LYMPH % 16 % (24-48); MEAN CORPUSCULAR HEMOGLOBIN 30 pg (25-35); MEAN CORPUSCULAR HGB CONC 33 g/dL (31-37); MEAN CORPUSCULAR VOLUME 91 fL (79-100); MONO % 12 % (0-9); NEUT # 5.8 x10^3/uL (1.8-7.7); NEUT % 72 % (31-73); PLATELET COUNT 374 x10^3/uL (140-400); RED CELL DISTRIBUTION WIDTH 13.3 % (11.5-14.5); WHITE BLOOD COUNT 8.1 x10^3/uL (4.0-11.0)
[2021-06-24 07:50] LABS: CALCIUM 9.7 mg/dL (8.5-10.1); CREATININE 0.9 mg/dL (0.6-1.0); GFR 59.2; MAGNESIUM 2.3 mg/dL (1.8-2.4); POTASSIUM 3.6 mmol/L (3.5-5.1)
[2021-06-24] MEDS: SENNOSIDES/DOCUSATE 8.6/50MG TABLET. PO SCH ×2 (09:00→20:58)
--- NOTE | 2021-06-24 10:02 | PDOC ---
PULMONARY PROGRESS NOTES DATE: 06/24/21 TIME: 10:01 Subjective Patient denies any increased shortness of breath. Vitals Vital Signs Date Time Temp Pulse Resp B/P (MAP) Pulse Ox O2 Delivery O2 Flow Rate FiO2 06/24/21 07:35 93 Nasal Cannula 2.0 06/24/21 07:00 98.7 87 20 155/85 (108) 98.7 General: Alert, No acute distress Lungs: Clear Cardiovascular: S1 Neuro Exam: Alert Extremities: No Edema Labs Laboratory Tests Test 06/22/21 10:49 06/23/21 06:40 06/24/21 06:55 Urine Collection Type Unknown Urine Color Yellow Urine Clarity Cloudy Urine pH 5.5 (<5.0-8.0) Urine Specific Candor 1.015 (1.000-1.030) Urine Protein Negative mg/dL (NEG-TRACE) Urine Glucose (UA) Negative mg/dL (NEG) Urine Ketones (Stick) Negative mg/dL (NEG) Urine Blood Moderate (NEG) Urine Nitrite Negative (NEG) Urine Bilirubin Negative (NEG) Urine Urobilinogen Dipstick 0.2 mg/dL (0.2 mg/dL) Urine Leukocyte Esterase Negative (NEG) Urine RBC 1-2 /HPF (0-2) Urine WBC 5-10 /HPF (0-4) Urine Squamous Epithelial Cells Few /LPF Urine Transitional Epithelial Cells Occ /LPF Urine Bacteria Few /HPF (0-FEW) White Blood Count 9.6 x10^3/uL (4.0-11.0) 8.1 x10^3/uL (4.0-11.0) Red Blood Count 3.44 x10^6/uL (3.50-5.40) 3.50 x10^6/uL (3.50-5.40) Hemoglobin 9.9 g/dL (12.0-15.5) 10.4 g/dL (12.0-15.5) Hematocrit 31.0 % (36.0-47.0) 31.9 % (36.0-47.0) Mean Corpuscular Volume 90 fL (79-100) 91 fL (79-100) Mean Corpuscular Hemoglobin 29 pg (25-35) 30 pg (25-35) Mean Corpuscular Hemoglobin Concent 32 g/dL (31-37) 33 g/dL (31-37) Red Cell Distribution Width 13.5 % (11.5-14.5) 13.3 % (11.5-14.5) Platelet Count 373 x10^3/uL (140-400) 374 x10^3/uL (140-400) Neutrophils (%) (Auto) 71 % (31-73) 72 % (31-73) Lymphocytes (%) (Auto) 18 % (24-48) 16 % (24-48) Monocytes (%) (Auto) 10 % (0-9) 12 % (0-9) Eosinophils (%) (Auto) 0 % (0-3) 0 % (0-3) Basophils (%) (Auto) 1 % (0-3) 0 % (0-3) Neutrophils # (Auto) 6.8 x10^3/uL (1.8-7.7) 5.8 x10^3/uL (1.8-7.7) Lymphocytes # (Auto) 1.7 x10^3/uL (1.0-4.8) 1.3 x10^3/uL (1.0-4.8) Monocytes # (Auto) 0.9 x10^3/uL (0.0-1.1) 1.0 x10^3/uL (0.0-1.1) Eosinophils # (Auto) 0.0 x10^3/uL (0.0-0.7) 0.0 x10^3/uL (0.0-0.7) Basophils # (Auto) 0.1 x10^3/uL (0.0-0.2) 0.0 x10^3/uL (0.0-0.2) Sodium Level 147 mmol/L (136-145) 149 mmol/L (136-145) Potassium Level 3.8 mmol/L (3.5-5.1) 3.6 mmol/L (3.5-5.1) Chloride Level 107 mmol/L (98-107) 107 mmol/L (98-107) Carbon Dioxide Level 39 mmol/L (21-32) 40 mmol/L (21-32) Anion Gap 1 (6-14) 2 (6-14) Blood Urea Nitrogen 27 mg/dL (7-20) 23 mg/dL (7-20) Creatinine 0.9 mg/dL (0.6-1.0) 0.9 mg/dL (0.6-1.0) Estimated GFR (Cockcroft-Gault) 59.2 59.2 Glucose Level 90 mg/dL (70-99) 125 mg/dL (70-99) Calcium Level 9.9 mg/dL (8.5-10.1) 9.7 mg/dL (8.5-10.1) Magnesium Level 2.3 mg/dL (1.8-2.4) 2.3 mg/dL (1.8-2.4) Laboratory Tests Test 06/24/21 06:55 White Blood Count 8.1 x10^3/uL (4.0-11.0) Red Blood Count 3.50 x10^6/uL (3.50-5.40) Hemoglobin 10.4 g/dL (12.0-15.5) Hematocrit 31.9 % (36.0-47.0) Mean Corpuscular Volume 91 fL (79-100) Mean Corpuscular Hemoglobin 30 pg (25-35) Mean Corpuscular Hemoglobin Concent 33 g/dL (31-37) Red Cell Distribution Width 13.3 % (11.5-14.5) Platelet Count 374 x10^3/uL (140-400) Neutrophils (%) (Auto) 72 % (31-73) Lymphocytes (%) (Auto) 16 % (24-48) Monocytes (%) (Auto) 12 % (0-9) Eosinophils (%) (Auto) 0 % (0-3) Basophils (%) (Auto) 0 % (0-3) Neutrophils # (Auto) 5.8 x10^3/uL (1.8-7.7) Lymphocytes # (Auto) 1.3 x10^3/uL (1.0-4.8) Monocytes # (Auto) 1.0 x10^3/uL (0.0-1.1) Eosinophils # (Auto) 0.0 x10^3/uL (0.0-0.7) Basophils # (Auto) 0.0 x10^3/uL (0.0-0.2) Sodium Level 149 mmol/L (136-145) Potassium Level 3.6 mmol/L (3.5-5.1) Chloride Level 107 mmol/L (98-107) Carbon Dioxide Level 40 mmol/L (21-32) Anion Gap 2 (6-14) Blood Urea Nitrogen 23 mg/dL (7-20) Creatinine 0.9 mg/dL (0.6-1.0) Estimated GFR (Cockcroft-Gault) 59.2 Glucose Level 125 mg/dL (70-99) Calcium Level 9.7 mg/dL (8.5-10.1) Magnesium Level 2.3 mg/dL (1.8-2.4) Impression . 1. Acute on chronic hypercapnic respiratory failure, multifactorial in etiology including acute exacerbation of chronic obstructive pulmonary disease, pneumonia, rule out aspiration. ABG shows compensated hypercapnia with BiPAP. 2. Abnormal chest x-ray. With chronic appearing right upper lobe infiltrate and some prominent basal markings 3. Acute exacerbation of chronic obstructive pulmonary disease. 4. Pneumonia, rule out aspiration. 5. Ex-smoker. Plan . 1. Titrate FiO2 to keep O2 saturation 90%. Hypercapnia is now compensated. 2. Continue BiPAP continuously at night. 3. Follow up MRSA screen and legionella and strep pneumonia antigen and influenza A and B. Apparently, they are done at [facility]. 4. Continue prednisone 40 mg daily. 5. Lovenox for deep venous thrombosis prophylaxis. 6. Protonix for stress ulcer prophylaxis. 7. Continue Rocephin and doxycycline. 8. Dysphagia diet per video swallow results. NI MARLEY MD Jun 24, 2021 10:02
[2021-06-24] MEDS: ASCORBIC ACID 500 MG TABLET PO SCH (10:54)
[2021-06-24] MEDS: predniSONE 20 MG TABLET PO SCH (10:54)
[2021-06-24] MEDS: MULTIVITAMIN with MINERAL TABLET. PO SCH (10:54)
[2021-06-24] MEDS: LACTOBACILLUS RHAMNOSUS GG 1 CAPSULE. PO SCH ×2 (10:54→20:58)
[2021-06-24] MEDS: PANTOPRAZOLE 40 MG TABLET.DR. PO SCH (10:54)
[2021-06-24] MEDS: cefTRIAXone IV Push 1 GM VIAL. IVP SCH (10:55)
[2021-06-24] MEDS: DOXYCYCLINE HYCLATE 100 MG TABLET PO SCH ×2 (10:55→20:57)
[2021-06-24 11:00] VITALS: BP 150/72
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
--- NOTE | 2021-06-24 13:43 | NUR ---
Nurse's note: Patient refused to take her medicines during breakfast. They were given later in the morning.
[2021-06-24 14:56] VITALS: BP 128/74
--- NOTE | 2021-06-24 16:30 | NUR ---
Wound/Ostomy Care Wound Type/Assessment: Patient seen per wound care consult. See wound assessment. 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 This wound appears to be an old wound, that was probably much worse at some point. Patient is poor historian as she is very confused at this time. Wound cleansed and assessed. There is undermining noted from 12-12 at 0.3cm with pale pink tissue in the base. Patient had hydrocolloid on nose, removed dressing and no wound area is healed this was most likely from wearing a mask. skin prep applied to this area on nose. Patient assisted to commode via assist and walker. Treatment Recommendations/Plan: Recommendations for Hydrofera Blue packed to wound bed and covered with foam dressing. Change on Wednesday and Wednesday. Dressing applied. Education provided: Patient educated on POC, will need reorientated due to mental status. Offloading surface/device: We will order a wheelchair cushion for this patient. Recommended Referrals/Tests: N/ A Discharge Recommendations for dressings: Dressing change instructions left in room. No other wounds noted. Patient back in chair and alarm in place, call light in reach. Wound care will follow up on 07/02/21.
[2021-06-24 19:00] VITALS: BP 152/79
[2021-06-24] MEDS: CEFDINIR 300 MG CAPSULE PO SCH (20:57)
[2021-06-24] MEDS: ENOXAPARIN 40 MG/0.4 ML SYRINGE. SQ SCH (20:57)
[2021-06-24 23:03] VITALS: BP 146/85
[2021-06-25 03:29] VITALS: BP 151/75
[2021-06-25 07:00] VITALS: BP 139/69
[2021-06-25] MEDS: PANTOPRAZOLE 40 MG TABLET.DR. PO SCH (07:52)
[2021-06-25] MEDS: predniSONE 20 MG TABLET PO SCH (07:52)
[2021-06-25] MEDS: SENNOSIDES/DOCUSATE 8.6/50MG TABLET. PO SCH ×2 (10:48→20:22)
[2021-06-25] MEDS: DOXYCYCLINE HYCLATE 100 MG TABLET PO SCH ×2 (10:48→20:22)
[2021-06-25] MEDS: ASCORBIC ACID 500 MG TABLET PO SCH (10:48)
[2021-06-25] MEDS: LACTOBACILLUS RHAMNOSUS GG 1 CAPSULE. PO SCH ×2 (10:48→20:21)
--- NOTE | 2021-06-25 10:48 | PDOC ---
PULMONARY PROGRESS NOTES DATE: 06/25/21 TIME: 10:48 Subjective Patient denies any increased shortness of breath. Vitals Vital Signs Date Time Temp Pulse Resp B/P (MAP) Pulse Ox O2 Delivery O2 Flow Rate FiO2 06/25/21 07:37 Nasal Cannula 2.0 06/25/21 07:00 98.3 84 20 139/69 (92) 99 98.3 General: Alert, No acute distress Lungs: Clear Cardiovascular: S1 Neuro Exam: Alert Extremities: No Edema Labs Laboratory Tests Test 06/24/21 06:55 White Blood Count 8.1 x10^3/uL (4.0-11.0) Red Blood Count 3.50 x10^6/uL (3.50-5.40) Hemoglobin 10.4 g/dL (12.0-15.5) Hematocrit 31.9 % (36.0-47.0) Mean Corpuscular Volume 91 fL (79-100) Mean Corpuscular Hemoglobin 30 pg (25-35) Mean Corpuscular Hemoglobin Concent 33 g/dL (31-37) Red Cell Distribution Width 13.3 % (11.5-14.5) Platelet Count 374 x10^3/uL (140-400) Neutrophils (%) (Auto) 72 % (31-73) Lymphocytes (%) (Auto) 16 % (24-48) Monocytes (%) (Auto) 12 % (0-9) Eosinophils (%) (Auto) 0 % (0-3) Basophils (%) (Auto) 0 % (0-3) Neutrophils # (Auto) 5.8 x10^3/uL (1.8-7.7) Lymphocytes # (Auto) 1.3 x10^3/uL (1.0-4.8) Monocytes # (Auto) 1.0 x10^3/uL (0.0-1.1) Eosinophils # (Auto) 0.0 x10^3/uL (0.0-0.7) Basophils # (Auto) 0.0 x10^3/uL (0.0-0.2) Sodium Level 149 mmol/L (136-145) Potassium Level 3.6 mmol/L (3.5-5.1) Chloride Level 107 mmol/L (98-107) Carbon Dioxide Level 40 mmol/L (21-32) Anion Gap 2 (6-14) Blood Urea Nitrogen 23 mg/dL (7-20) Creatinine 0.9 mg/dL (0.6-1.0) Estimated GFR (Cockcroft-Gault) 59.2 Glucose Level 125 mg/dL (70-99) Calcium Level 9.7 mg/dL (8.5-10.1) Magnesium Level 2.3 mg/dL (1.8-2.4) Impression . 1. Acute on chronic hypercapnic respiratory failure, multifactorial in etiology including acute exacerbation of chronic obstructive pulmonary disease, pneumonia, rule out aspiration. ABG shows compensated hypercapnia with BiPAP. 2. Abnormal chest x-ray. With chronic appearing right upper lobe infiltrate and some prominent basal markings 3. Acute exacerbation of chronic obstructive pulmonary disease. 4. Pneumonia, rule out aspiration. 5. Ex-smoker. Plan . 1. Titrate FiO2 to keep O2 saturation 90%. Hypercapnia is now compensated. 2. Continue BiPAP continuously at night. 3. Follow up MRSA screen and legionella and strep pneumonia antigen and influenza A and B. Apparently, they are done at [facility]. 4. Continue prednisone 40 mg daily. 5. Lovenox for deep venous thrombosis prophylaxis. 6. Protonix for stress ulcer prophylaxis. 7. Continue Rocephin and doxycycline. 8. Dysphagia diet per video swallow results. NI MARLEY MD Jun 25, 2021 10:48
[2021-06-25] MEDS: CEFDINIR 300 MG CAPSULE PO SCH ×2 (10:49→20:22)
[2021-06-25] MEDS: MULTIVITAMIN with MINERAL TABLET. PO SCH (10:49)
--- NOTE | 2021-06-25 10:52 | PDOC ---
[employer] PROGRESS NOTE Date of Service DOS: DATE: 06/25/21 TIME: 10:52 Chief Complaint Chief Complaint Assessment/Plan Acute hypoxic respiratory failure requiring BiPAP support Community-acquired pneumonia, possible gram-negative organisms History of COPD Admit to hospitalist service for further management Continue empiric IV antibiotics Pending MRSA screen and Legionella urine antigen Pulmonary recommendations O2 supplementation to maintain O2 saturation between 88 to 92%, BiPAP as needed and continuous at night Repeat ABG as needed Lovenox for DVT prophylaxis Protonix while on steroids GI prophylaxis ADA diet CODE STATUS assumed full code Discussed with RN and SW Disposition pending pulmonary evaluation DPOA: Daughter History of Present Illness History of Present Illness 85-year-old female with past medical history of COPD who comes in with shortness of breath at [facility] ER. Patient was transferred from there for pulmonology support. Patient states she was having shortness of breath for the past couple days and feeling weak. She does have some cough. Denies any fevers, chest pain, diarrhea, dysuria or abdominal pains. Patient lives with daughter and son-in-law at home and she is independent with some of her ADLs. She does rely on a walker. Patient currently is on BiPAP support. Her last ABG was 7.3 763/73/36. 06/22/2021 No acute events overnight. Patient seen examined bedside. Currently patient saturating 93% on 3 L nasal cannula. AF and VSS. No complaints from patient at this time. Clinical improvement. Patient's chart, labs, images were reviewed and discussed with RN 06/23/2021 No acute events overnight. Patient seen examined bedside. Saturating 95% on 2 L nasal cannula. Not dyspneic upon my encounter. Speech's ED evaluated and recommended video swallow. Pending video swallow today. Pending PT OT evaluation for possible SNF placement. Patient's chart, labs, images were reviewed and discussed with RN 06/24/2021 No acute events overnight. Patient seen examined bedside. No dyspnea upon my encounter. Saturating 90% on 2 L nasal cannula which is her baseline. Video swallow was completed yesterday. Recommendations are for chin tuck with regular diet and thin liquids. No aspiration precautions or modified diet needed. We will continue with prednisone 40 mg daily and antibiotics. Pending placement. Will follow up with administrator social welfare. Patient's chart, labs, images were reviewed and discussed with RN 06/25/2021 Pending [facility] placement. Patient's chart, labs, images were reviewed and discussed with RN Vitals/I&O Vitals/I&O: Vital Signs Date Time Temp Pulse Resp B/P (MAP) Pulse Ox O2 Delivery O2 Flow Rate FiO2 06/25/21 07:37 Nasal Cannula 2.0 06/25/21 07:00 98.3 84 20 139/69 (92) 99 98.3 I & O 06/24/21 06/24/21 06/25/21 15:00 23:00 07:00 Intake Total 480 ml 240 ml Balance 480 ml 240 ml Physical Exam General: Alert, Oriented X3, Cooperative Heart: Regular rate Lungs: Clear Abdomen: Normal bowel sounds Extremities: No clubbing Skin: No rashes Comment Review of Relevant I have reviewed the following items chun (where applicable) has been applied. Medications: Current Medications Medications (Trade) Dose Ordered Sig/Nikkie Route PRN Reason Start Time Stop Time Status Last Admin Dose Admin Cefdinir (Omnicef) 300 mg BID PO 06/24/21 21:00 06/25/21 10:49 Justifications for Admission Other Justification COPD exacerbation SERGIO DE LEÓN MD Jun 25, 2021 10:52
[2021-06-25 11:00] VITALS: BP 148/76
--- NOTE | 2021-06-25 11:02 | NUR ---
[facility] following. Discussed with RN. [facility] never received referral yesterday. [facility] refaxed this morning. Awaiting acceptance decision and COVID PCR to return. [facility] will continue to follow. Addendum: 06/25/21 at 1339 by YAMILEX SIMPSON [facility] declined, pt accepted at [facility]. Family agreeable. Still awaiting COVID PCR result. RN notified.
[2021-06-25 15:00] VITALS: BP 136/66
[2021-06-25 19:00] VITALS: BP 131/60
[2021-06-25] MEDS: ENOXAPARIN 40 MG/0.4 ML SYRINGE. SQ SCH (20:21)
[2021-06-25 23:00] VITALS: BP 142/64
[2021-06-26 03:00] VITALS: BP 118/58
[2021-06-26 07:00] VITALS: BP 140/65
[2021-06-26] MEDS: predniSONE 20 MG TABLET PO SCH (08:29)
[2021-06-26] MEDS: DOXYCYCLINE HYCLATE 100 MG TABLET PO SCH (08:29)
[2021-06-26] MEDS: CEFDINIR 300 MG CAPSULE PO SCH (08:29)
[2021-06-26] MEDS: LACTOBACILLUS RHAMNOSUS GG 1 CAPSULE. PO SCH (08:29)
[2021-06-26] MEDS: ASCORBIC ACID 500 MG TABLET PO SCH (08:29)
[2021-06-26] MEDS: MULTIVITAMIN with MINERAL TABLET. PO SCH (08:29)
[2021-06-26] MEDS: PANTOPRAZOLE 40 MG TABLET.DR. PO SCH (08:29)
[2021-06-26] MEDS ORDERED: CEFD300C PO (08:30)
[2021-06-26] MEDS ORDERED: DOXY100T PO (08:30)
[2021-06-26] MEDS: SENNOSIDES/DOCUSATE 8.6/50MG TABLET. PO SCH (08:32)
--- NOTE | 2021-06-26 08:47 | SNU/HH DC ---
DISCHARGE ORDERS DISCHARGE INFORMATION: DISCHARGE DATE: Jun 26, 2021 CONDITION ON DISCHARGE: Stable CODE STATUS: Code Status: Full INTERMEDIATE: SNF STAY <30 DAYS: Yes POST DISCHARGE ORDERS: ACTIVITY ORDERS: Activity as tolerated WEIGHT BEARING STATUS: As tolerated DIET AFTER DISCHARGE: regular diet w/ thin liquids. Chin tuck swallow w/ ALL LIQUIDS. 1:1 feeding CHECKS AFTER DISCHARGE: CHECKS AFTER DISCHARGE: Check blood press - daily, Weigh Yourself Daily FOLLOW-UP: PHYSICIAN FOLLOW-UP: PCP within 2 weeks of discharge ADDITIONAL FOLLOW-UP: Gas Blender as needed LAB ORDERS FOR FOLLOW-UP: CBC, CMP TREATMENT/EQUIPMENT ORDERS: Physical Therapy For: Evalulation/Treatment Occupational Therapy For: Evaluation/Treatment DISCHARGE MEDICATIONS: Home Meds Active Scripts Ascorbic Acid (VITAMIN C) 500 Mg Tablet, 1000 MG PO DAILY for supplement for 30 Days, #60 TAB Prov:SERGIO DE LEÓN MD 06/26/21 Prednisone (PREDNISONE) 20 Mg Tablet, 40 MG PO DAILY08 for COPD for 5 Days, #10 TAB Prov:SERGIO DE LEÓN MD 06/26/21 Doxycycline Hyclate (DOXYCYCLINE HYCLATE) 100 Mg Tablet, 100 MG PO BID for pneumonia for 3 Days, #6 TAB Prov:SERGIO DE LEÓN MD 06/26/21 Cefdinir (CEFDINIR) 300 Mg Capsule, 300 MG PO BID for UTI for 3 Days, #6 CAP Prov:SERGIO DE LEÓN MD 06/26/21 SERGIO DE LEÓN MD Jun 26, 2021 08:47
[2021-06-26] MEDS ORDERED: ASCO500T4 PO (08:49)
[2021-06-26] MEDS ORDERED: PRED20TA PO (08:49)
--- NOTE | 2021-06-26 09:52 | PDOC ---
PULMONARY PROGRESS NOTES DATE: 06/26/21 TIME: 09:50 Subjective Patient denies any increased shortness of breath. Vitals Vital Signs Date Time Temp Pulse Resp B/P (MAP) Pulse Ox O2 Delivery O2 Flow Rate FiO2 06/26/21 07:00 98.2 93 22 140/65 (90) 96 Nasal Cannula 2.0 98.2 General: Alert, No acute distress Lungs: Clear Cardiovascular: S1 Neuro Exam: Alert Extremities: No Edema Labs Laboratory Tests Test 06/24/21 18:55 Coronavirus (COVID-19)(PCR) Not detected (NOT DETECTD) Medications Active Scripts Medications Dose Route/Sig Max Daily Dose Days Date Category Vitamin C (Ascorbic Acid) 500 Mg Tablet 1,000 Mg PO DAILY 30 06/26/21 Rx Prednisone 20 Mg Tablet 40 Mg PO DAILY08 5 06/26/21 Rx Doxycycline Hyclate 100 Mg Tablet 100 Mg PO BID 3 06/26/21 Rx Cefdinir 300 Mg Capsule 300 Mg PO BID 3 06/26/21 Rx Impression . 1. Acute on chronic hypercapnic respiratory failure, multifactorial in etiology including acute exacerbation of chronic obstructive pulmonary disease, pneumonia, rule out aspiration. ABG shows compensated hypercapnia with BiPAP. 2. Abnormal chest x-ray. With chronic appearing right upper lobe infiltrate and some prominent basal markings 3. Acute exacerbation of chronic obstructive pulmonary disease. 4. Pneumonia, rule out aspiration. 5. Ex-smoker. Plan . 1. Titrate FiO2 to keep O2 saturation 90%. Hypercapnia is now compensated. 2. nasal canula 3. Follow up MRSA screen and legionella and strep pneumonia antigen and influenza A and B. Apparently, they are done at [facility]. 4. Continue prednisone 40 mg daily. 5. Lovenox for deep venous thrombosis prophylaxis. 6. Protonix for stress ulcer prophylaxis. 7. Continue Rocephin and doxycycline. 8. Dysphagia diet per video swallow results. 9. ok with dc to [facility] Connell MD Jun 26, 2021 09:52
--- NOTE | 2021-06-26 10:18 | NUR ---
SW following. Discussed with RN, discharge orders faxed to [facility] - awaiting Dr. Moore to call [facility] to discuss the prednisone, then transportation can be arranged. CALVIN will continue to follow. Addendum: 06/26/21 at 1035 by YAMILEX SIMPSON Transportation arranged with [facility] transport for 1130. RN and family notified.
[2021-06-26 11:00] VITALS: BP 152/65
--- NOTE | 2021-06-26 11:48 | NUR ---
Discharge Note: KIMBER BELLE COVE Discharge instructions and discharge home medications reviewed with Other facility and a copy given. All questions have been answered and understanding verbalized. The following instructions and handouts were given: diet, medication reconciliation, activity, and wound care. Discontinued lines and drains: IV discontinued, telemetry removed, and wound care including discharge pictures done per orders. Patient discharged to [facility] transportation.
--- NOTE | 2021-07-06 20:55 | PDOC3 ---
[facility]-Discharge Summary Date of Admission: Date of Admission: Jun 21, 2021 Date of Discharge: Date of Discharge: Jun 26, 2021 Discharge Diagnosis: Discharge Diagnosis: Acute hypoxic respiratory failure requiring BiPAP support Community-acquired pneumonia, possible gram-negative organisms History of COPD Hospital Course: Hospital Course: 85-year-old female with past medical history of COPD who comes in with shortness of breath at [facility] ER. Patient was transferred from there for pulmonology support. Patient states she was having shortness of breath for the past couple days and feeling weak. She does have some cough. Denies any fevers, chest pain, diarrhea, dysuria or abdominal pains. Patient lives with daughter and son-in-law at home and she is independent with some of her ADLs. She does rely on a walker. Patient currently is on BiPAP support. Her last ABG was 7.3 /73/36. 06/22/2021 No acute events overnight. Patient seen examined bedside. Currently patient saturating 93% on 3 L nasal cannula. AF and VSS. No complaints from patient at this time. Clinical improvement. Patient's chart, labs, images were reviewed and discussed with RN 06/23/2021 No acute events overnight. Patient seen examined bedside. Saturating 95% on 2 L nasal cannula. Not dyspneic upon my encounter. Speech's ED evaluated and recommended video swallow. Pending video swallow today. Pending PT OT evaluation for possible SNF placement. Patient's chart, labs, images were reviewed and discussed with RN 06/24/2021 No acute events overnight. Patient seen examined bedside. No dyspnea upon my encounter. Saturating 90% on 2 L nasal cannula which is her baseline. Video swallow was completed yesterday. Recommendations are for chin tuck with regular diet and thin liquids. No aspiration precautions or modified diet needed. We will continue with prednisone 40 mg daily and antibiotics. Pending placement. Will follow up with criminal justice social worker. Patient's chart, labs, images were reviewed and discussed with RN 06/25/2021 Pending [facility] placement. Patient's chart, labs, images were reviewed and discussed with RN By day of discharge, pt was clinically stable and ready for discharge. Rest of hospital course was uneventful Disposition: Disposition/Orders: D/C to Another Facility Activity: Activity: Resume previous activity Diet: Diet: Cardiac Medications: Home Meds Active Scripts Ascorbic Acid (VITAMIN C) 500 Mg Tablet, 1000 MG PO DAILY for supplement for 30 Days, #60 TAB Prov:SERGIO DE LEÓN MD 06/26/21 Prednisone (PREDNISONE) 20 Mg Tablet, 40 MG PO DAILY08 for COPD for 5 Days, #10 TAB Prov:SERGIO DE LEÓN MD 06/26/21 Doxycycline Hyclate (DOXYCYCLINE HYCLATE) 100 Mg Tablet, 100 MG PO BID for pneumonia for 3 Days, #6 TAB Prov:SERGIO DE LEÓN MD 06/26/21 Cefdinir (CEFDINIR) 300 Mg Capsule, 300 MG PO BID for UTI for 3 Days, #6 CAP Prov:SERGIO DE LEÓN MD 06/26/21 Scheduled Ascorbic Acid (Vitamin C), 1,000 MG PO DAILY Cefdinir (Cefdinir), 300 MG PO BID Doxycycline Hyclate (Doxycycline Hyclate), 100 MG PO BID Prednisone (Prednisone), 40 MG PO DAILY08 Total Time: Total Time: Total time spent was 32 minutes in preparing scripts and discharge planning with SW and RN. Patient seen and examined on day of Discharge. Justicifation of Admission Dx: Justifications for Admission: Justification of Admission Dx: Yes Respiratory Failure: Severe Resp Distress SERGOI DE LEÓN MD Jul 06, 2021 20:55
== END 2021-06-26 11:40 | DRG 177 ==
LOC: 5 NORTH 19:23
PROVIDERS: ADMIT Student in an Organized Health Care Education/Training Program; ATTEND Student in an Organized Health Care Education/Training Program
PROC: 5A09357 Assistance with Respiratory Ventilation, Less than 24 Consecutive Hours, Continuous Positive Airway Pressure (ICD-10-PCS; principal; 2021-06-20)
DX: J15.6 Pneumonia due to other Gram-negative bacteria (principal); J96.21 Acute and chronic respiratory failure with hypoxia; J96.22 Acute and chronic respiratory failure with hypercapnia; J44.1 Chronic obstructive pulmonary disease with (acute) exacerbation; J91.8 Pleural effusion in other conditions classified elsewhere; J69.0 Pneumonitis due to inhalation of food and vomit; Z20.822 Contact with and (suspected) exposure to COVID-19; Z82.49 Family history of ischemic heart disease and other diseases of the circulatory system; Z87.891 Personal history of nicotine dependence
CPT/HCPCS: 36415; 36600; 71045; 74230; 80048; 80053; 81001; 82805; 83735; 84100; 84145; 84443; 85025; 87086; 87449; 87641; 94660; 94760; J0696; J1644; J1650; J7512; U0003; 92526-GN; 92610-GN; 92611-GN; 97110-GP; 97530-GO; 97530-GP; 97535-GO; 99285-25; G0378; Q0163

== ENCOUNTER 2021-07-16 15:39 | Inpatient (IN) | payer MEDICARE ==
[~2021-07-16] VITALS: Ht 165.1 cm; Wt 62.5 kg
[2021-07-16] VITALS (8 sets, daily range): BP systolic 95–139; BP diastolic 54–84
[~2021-07-16 15:39] MED LIST: ASCO500T4 PO; CEFD300C PO; DOXY100T PO; PRED20TA PO
[2021-07-16] MEDS ORDERED: ROCURONIUM 50 MG/5 ML VIAL. IV ONE (16:00)
[2021-07-16] MEDS ORDERED: fentaNYL PF VIAL 100 MCG/2 ML VIAL IVP ONE ×2 (16:00→18:45)
[2021-07-16] MEDS ORDERED: ETOMIDATE 20 MG/10 ML VIAL. IV ONE (16:00)
[2021-07-16] MEDS ORDERED: PROPOFOL 100 ML IV PRN (16:00)
--- NOTE | 2021-07-16 16:17 | PHYS DOC ---
General Adult EDM: Chief Complaint: ALTERED MENTAL STATUS HPI: HPI: Patient is a 86 year old was brought in from outpatient imaging after being found slumped over and unresponsive in the chair waiting room. Patient had coffee-ground emesis patient was apneic. Limited history was given. Review of Systems: Review of Systems: Unable to obtain due to patient's altered mental status Heart Score: C/O Chest Pain: N/A Risk Factors: Risk Factors: DM, Current or recent (<one month) smoker, HTN, HLP, family history of CAD, obesity. Risk Scores: Score 0 - 3: 2.5% MACE over next 6 weeks - Discharge Home Score 4 - 6: 20.3% MACE over next 6 weeks - Admit for Clinical Observation Score 7 - 10: 72.7% MACE over next 6 weeks - Early Invasive Strategies Current Medications: Current Medications Medications (Trade) Dose Ordered Sig/Nikkie Start Time Stop Time Status Last Admin Dose Admin Etomidate (Amidate) 18 mg 1X ONCE 07/16/21 16:00 07/16/21 16:01 UNV Fentanyl Citrate (Fentanyl 2ml Vial) 50 mcg 1X ONCE 07/16/21 16:00 07/16/21 16:01 UNV Propofol 100 ml @ 0 mls/hr CONT PRN 07/16/21 16:00 UNV Rocuronium [place] (Zemuron) 50 mg 1X ONCE 07/16/21 16:00 07/16/21 16:01 UNV Allergies: Allergies: Allergies Coded Allergies Type Severity Reaction Last Updated Verified No Known Drug Allergies 06/20/21 No Physical Exam: PE: Constitutional: Unresponsive. GCS of 4. HENT: Normocephalic, atraumatic, bilateral external ears normal, oropharynx moist, no oral exudates, nose normal. [] Eyes: Pupils are fixed and nonreactive. Neck: no tenderness, supple, no stridor. [] Cardiovascular: Bradycardic, no murmur [] Lungs & Thorax: Apneic breathing. Abdomen: Dr. Coffee-ground emesis bowel sounds normal, soft, no tenderness, no masses, no pulsatile masses. [] Skin: Warm, dry, no erythema, no rash. [] Back: Unable to assess Extremities: No tenderness, no cyanosis, no clubbing, ROM intact, no edema. [] Neurologic: Unresponsive to noxious stimuli. GCS of 4 blinking spontaneously] Psychologic: Unable to assess EKG: EKG: [Sinus bradycardia with a heart rate of 43 with T wave depressions in the anterior leads. QTc 434 HI interval 152 Radiology/Procedures: Radiology/Procedures: []CT STROKE HEAD W/O History: Altered mental status. Stroke. Comparison: None. Technique: Noncontrast CT imaging was performed of the head. Findings: No intracranial hemorrhage. No mass effect. No hydrocephalus. No evidence of acute territorial infarction. Mild hypodensity the periventricular and deep w lisa matter consistent with chronic microvascular ischemic change. Imaged orbits are unremarkable. Imaged paranasal sinuses and mastoid air cells are clear. The scalp and calvarium are unremarkable. Impression: 1. No acute intracranial abnormality. XR CHEST 2V, XR CHEST 1V History: Possible aspiration. Altered mental status post intubation. Comparison: None. Technique: PA and lateral chest radiographs timed stamped at 3:24 PM with subsequent AP portable chest x-ray time stamped at 4:00 PM. Findings: The lungs are hyperinflated. There is left basilar opacity and small left greater than right pleural effusions. No pneumothorax. The cardiac silhouette is enlarged and the pulmonary vasculature is cephalized. Degenerative changes of the shoulders and spine. Decreased osseous mineralization. Postintubation radiograph demonstrates similar pulmonary findings with no endotracheal tube tip projecting approximately 6 cm above the david. Impression: 1. Endotracheal tube projecting approximately 6 cm above the david. 2. Mild bibasilar opacities and small bilateral pleural effusions. Findings may be due to interstitial edema. Infection and aspiration are not excluded. Course & Med Decision Making: Course & Med Decision Making Pertinent Labs and Imaging studies reviewed. (See chart for details) [] Discussed with neurology after CT scan was reviewed which was negative. Patient will have a CT angio head and neck ordered and be brought in for admission for altered mental status no focal deficits. Discussed the case with hospitalist and admitted Critical care time 45 minutes Patient's G-tube did not bring out anything that appeared to be bloody emesis. Patient not started on Protonix drip at this time. [place] Disclaimer: Wood Disclaimer: This electronic medical record was generated, in whole or in part, using a voice recognition dictation system. Intubation Procedure Intub Indication: Respiratory failure Consent: Unable to give consent due to emergent nature. Medications Used: see nursing note Procedure: The patient was placed in the appropriate position. Intubation was performed with a kaleidoscope 7.5 endotracheal tube. [At 23 at the lip.]. Initial confirmation of placement included bilateral breath sounds, tube fogging, adequate chest rise, adequate pulse oximetry reading. A chest x-ray to verify correct placement of the tube showed appropriate tube position. The patient tolerated the procedure well. Complications: none. Departure Departure Referrals: DENISSE VALERO MD (PCP) KATHRYN HENDRICKSON DO Jul 16, 2021 16:17
--- NOTE | 2021-07-16 16:23 | RAD ---
CT STROKE HEAD W/O History: Altered mental status. Stroke. Comparison: None. Technique: Noncontrast CT imaging was performed of the head. Findings: No intracranial hemorrhage. No mass effect. No hydrocephalus. No evidence of acute territorial infar ction. Mild hypodensity the periventricular and deep white matter consistent with chronic microvascul ar ischemic change. Imaged orbits are unremarkable. Imaged paranasal sinuses and mastoid air cells are clear. The scalp a nd calvarium are unremarkable. Impression: 1. No acute intracranial abnormality. Findings discussed with KATHRYN HENDRICKSON DO at 07/16/2021 4:20 PM. FOR INTERNAL CODING PURPOSES RESULT CODE: (C) ----- Exposure: One or more of the following individualized dose reduction techniques were utilized for thi s examination: 1. Automated exposure control 2. Adjustment of the mA and/or kV according to patient size 3. Use of iterative reconstruction technique. Electronically signed by: Clinton Kurtz MD (07/16/2021 4:20 PM) [id number]
--- NOTE | 2021-07-16 16:30 | RAD ---
XR CHEST 2V, XR CHEST 1V History: Possible aspiration. Altered mental status post intubation. Comparison: None. Technique: PA and lateral chest radiographs timed stamped at 3:24 PM with subsequent AP portable ches t x-ray time stamped at 4:00 PM. Findings: The lungs are hyperinflated. There is left basilar opacity and small left greater than right pleural effusions. No pneumothorax. The cardiac silhouette is enlarged and the pulmonary vasculature is cepha lized. Degenerative changes of the shoulders and spine. Decreased osseous mineralization. Postintubation radiograph demonstrates similar pulmonary findings with no endotracheal tube tip proje cting approximately 6 cm above the david. Impression: 1. Endotracheal tube projecting approximately 6 cm above the david. 2. Mild bibasilar opacities and small bilateral pleural effusions. Findings may be due to interstiti al edema. Infection and aspiration are not excluded. Electronically signed by: Clinton Kurtz MD (07/16/2021 4:28 PM) [id number]
[2021-07-16 16:41] LABS: BASO # 0.1 x10^3/uL (0.0-0.2); BASO % 1 % (0-3); EOS # 0.1 x10^3/uL (0.0-0.7); EOS % 2 % (0-3); HEMATOCRIT 34.5 % (36.0-47.0); HEMOGLOBIN 10.6 g/dL (12.0-15.5); LYMPH # 0.8 x10^3/uL (1.0-4.8); LYMPH % 12 % (24-48); MEAN CORPUSCULAR HEMOGLOBIN 29 pg (25-35); MEAN CORPUSCULAR HGB CONC 31 g/dL (31-37); MEAN CORPUSCULAR VOLUME 94 fL (79-100); MONO # 0.4 x10^3/uL (0.0-1.1); MONO % 7 % (0-9); NEUT % 79 % (31-73); PLATELET COUNT 262 x10^3/uL (140-400); RED BLOOD COUNT 3.68 x10^6/uL (3.50-5.40); RED CELL DISTRIBUTION WIDTH 15.4 % (11.5-14.5); WHITE BLOOD COUNT 6.3 x10^3/uL (4.0-11.0)
[2021-07-16 16:50] LABS: BLOOD UREA NITROGEN 17 mg/dL (7-20); CALCIUM 9.3 mg/dL (8.5-10.1); CARBON DIOXIDE 41 mmol/L (21-32); CHLORIDE 99 mmol/L (98-107); CREATININE 0.9 mg/dL (0.6-1.0); GFR 59.1; GLUCOSE 132 mg/dL (70-99); POTASSIUM 5.2 mmol/L (3.5-5.1); SODIUM 137 mmol/L (136-145)
[2021-07-16 16:53] LABS: PROTHROMBIN TIME PATIENT 11.4 SEC (11.7-14.0)
[2021-07-16 16:57] LABS: BASE EXCESS COOX 10 mmol/L (-3-3); HCO3 COOX 36 mmol/L (21-28); PCO2 COOX 51 mmHg (35-46); PO2 COOX 431 mmHg (65-108); SAT O2 COOX 99 % (92-99)
[2021-07-16] MEDS ORDERED: IOHEXOL 350 MG/ML 100 ML VIAL. IV ONE (17:15)
[2021-07-16 17:29] LABS: BASE EXCESS ABG 8 mmol/L (-3-3); HCO3 ABG 35 mmol/L (21-28); PCO2 ABG 57 mmHg (35-46); PO2 ABG 220 mmHg (65-108); SAT O2 ABG 99 % (92-99)
--- NOTE | 2021-07-16 17:35 | RAD ---
AP chest. HISTORY: NG tube placement Single view was taken of the chest. Orogastric tube extends into the abdomen. The distal end of the t ube is not entirely included but the sidehole of the tube is into the stomach. Endotracheal tube is a t the level the aortic arch without change. There is a skin fold on the right. There are changes of c hronic obstructive pulmonary disease. There are no new infiltrates. IMPRESSION: 1. Orogastric tube extends into the stomach. 2. No other change. Electronically signed by: Otot Freeman MD (07/16/2021 5:32 PM) [facility]
[2021-07-16 17:52] LABS: FIO2 ABG 50
--- NOTE | 2021-07-16 18:11 | RAD ---
PQRS Compliance Statement: One or more of the following individualized dose reduction techniques were utilized for this examinat ion: 1. Automated exposure control 2. Adjustment of the mA and/or kV according to patient size 3. Use of iterative reconstruction technique CTA HEAD AND NECK W/WO CONTRAST Clinical Indication: Reason: AMS Comparison: CT head without contrast, earlier same day. Technique: Helical CT imaging from inferior to the aortic arch to the skull vertex is performed after 75 cc of Omnipaque [address] angiogram protocol. 3-D MIP reconstructions of the cervi nancy carotid arteries and bill moore[place] of [place] are performed. PQRS Compliance Statement - Stenosis calculations for CT, MR and conventional angiography are based u radha measurement of the distal ICA diameter in accordance with the NASCET methodology. Stenosis calcu lations for carotid ultrasound studies are derived from validated velocity criteria which are known t o correlate with the NASCET methodology. Findings: Aortic arch incompletely imaged. The skull vertex is incompletely imaged. The common carotid arteries, carotid bifurcations, and the cervical internal carotid arteries are pat ent. The cervical vertebral arteries are patent. The left vertebral artery is dominant. The posterior circulation is intact. The distal internal carotid arteries are patent. Anterior circulation is inta ct. No intracranial aneurysm or significant stenosis is identified. The visualized dural venous sinuses are unremarkable. There is no abnormal enhancement in the brain p arenchyma. Endotracheal and enteric tubes are partially seen. There is moderate upper lobe centrilobu lar emphysema. There are retained secretions or mucous in the trachea. Moderate mucosal thickening of the bilateral ethmoid sinuses. There is degenerative spondylosis of the cervical spine. There is gra de 1 anterolisthesis of C2 on C3, C4 on C5, C7 on T1, and T1 on T2. IMPRESSION: 1. No large vessel occlusion. 2. No significant stenosis of the cervical carotid or vertebral arteries. Electronically signed by: Champ Mae MD (07/16/2021 6:08 PM) [facility]
[2021-07-16] MEDS ORDERED: KETAMINE HCL IN NACL, ISO-OSM 50 MG/5 ML SYRINGE ONE (19:16)
[2021-07-16] MEDS ORDERED: KETAMINE HCL 500 MG/10 ML VIAL. IV ONE (20:00)
[2021-07-16] MEDS ORDERED: SENNOSIDES 8.6 MG TABLET PO PRN (20:30)
[2021-07-16] MEDS ORDERED: ZOLPIDEM 5 MG TABLET. PO PRN (20:30)
[2021-07-16] MEDS ORDERED: DOCUSATE SODIUM 100 MG CAPSULE. PO PRN (20:30)
[2021-07-16] MEDS ORDERED: LORazepam 0.5 MG TABLET PO PRN (20:30)
[2021-07-16] MEDS ORDERED: diphenhydrAMINE HCL 25 MG CAPSULE PO PRN ×2 (20:30)
[2021-07-16] MEDS ORDERED: ACETAMINOPHEN 325 MG TABLET. PO PRN (20:30)
[2021-07-16] MEDS ORDERED: diphenhydrAMINE 50 MG/ML VIAL IVP PRN (20:30)
[2021-07-16] MEDS ORDERED: PROCHLORPERAZINE 10 MG/2 ML VIAL. IV PRN (20:30)
[2021-07-16] MEDS ORDERED: ONDANSETRON PF 4 MG/2 ML VIAL. IVP PRN (20:30)
[2021-07-16] MEDS ORDERED: DEXTROSE 50% 25 GM / 50ML DISP.SYRIN. IV PRN (20:30)
--- NOTE | 2021-07-16 22:00 | NUR ---
Patient admitted to room 112, placed on ICU monitors, RT at bedside placed patient on vent. Two sons came to bedside, questions answered. Dr. Moore placed admit orders. Daughter Suze came to bedside, brought living will and healthcare DPOA paperwork, copies made and placed in chart. She will be main decision maker, number is [phone].
[2021-07-16] MEDS ORDERED: IPRA3AMP29 NEB (22:14)
[2021-07-16] MEDS: ENOXAPARIN 40 MG/0.4 ML SYRINGE. SQ SCH (22:24)
[2021-07-17] VITALS (24 sets, daily range): BP systolic 83–143; BP diastolic 46–84
[2021-07-17 05:27] LABS: BASO % 0 % (0-3); EOS # 0.2 x10^3/uL (0.0-0.7); EOS % 2 % (0-3); HEMOGLOBIN 9.6 g/dL (12.0-15.5); LYMPH # 0.8 x10^3/uL (1.0-4.8); LYMPH % 12 % (24-48); MEAN CORPUSCULAR HEMOGLOBIN 30 pg (25-35); MEAN CORPUSCULAR HGB CONC 32 g/dL (31-37); MEAN CORPUSCULAR VOLUME 93 fL (79-100); MONO # 0.7 x10^3/uL (0.0-1.1); MONO % 10 % (0-9); NEUT % 75 % (31-73); PLATELET COUNT 216 x10^3/uL (140-400); RED BLOOD COUNT 3.23 x10^6/uL (3.50-5.40); RED CELL DISTRIBUTION WIDTH 14.9 % (11.5-14.5); WHITE BLOOD COUNT 6.6 x10^3/uL (4.0-11.0)
[2021-07-17 06:29] LABS: ALBUMIN 2.4 g/dL (3.4-5.0); ALBUMIN/GLOBULIN RATIO 0.8 (1.0-1.7); CALCIUM 8.9 mg/dL (8.5-10.1); CREATININE 0.8 mg/dL (0.6-1.0); GFR 67.7; MAGNESIUM 2.2 mg/dL (1.8-2.4); PHOSPHORUS 1.8 mg/dL (2.6-4.7); TOTAL BILIRUBIN 0.4 mg/dL (0.2-1.0); TOTAL PROTEIN 5.6 g/dL (6.4-8.2)
[2021-07-17 07:46] LABS: BASE EXCESS ABG 11 mmol/L (-3-3); HCO3 ABG 34 mmol/L (21-28); PCO2 ABG 39 mmHg (35-46); PO2 ABG 96 mmHg (65-108); SAT O2 ABG 98 % (92-99)
[2021-07-17] MEDS: PANTOPRAZOLE IV PUSH 40 MG VIAL. IVP SCH (07:57)
[2021-07-17 08:19] LABS: FIO2 ABG 40
--- NOTE | 2021-07-17 08:41 | EKG ---
[facility] [address] [place] [address] Test Date: 2021-07-16 Test Time: 15:48:53 Pat Name: KIMBER BELLE Department: Room: 112 1 Gender: F Maritime Engineer: : [id number] Requested By: KATHRYN HENDRICKSON Order Number: [id number] Reading MD: Conner Clark Measurements Intervals [place]nn Rate: 43 P: 90 CA: 152 QRS: 105 QRSD: 88 T: 70 QT: 512 QTc: 434 Interpretive Statements SINUS BRADYCARDIA ATRIAL PREMATURE COMPLEX(ES) LOW LIMB LEAD VOLTAGE QRS(T) CONTOUR ABNORMALITY CONSIDER ANTEROSEPTAL MYOCARDIAL DAMAGE POSSIBLY ABNORMAL ECG RI6.02 No previous ECG available for comparison Electronically Signed On 07-18-2021 13:25:10 CDT by Conner Clark
--- NOTE | 2021-07-17 09:38 | PDOC1 ---
History and Physical Date of Admission Date of Admission DATE: 07/17/21 TIME: 09:36 Identification/Chief Complaint Chief Complaint AMS/respiratory failure Source Source: Chart review History of Present Illness History of Present Illness Patient is an 86-year-old female with past medical history COPD, who was reportedly found down at an outpatient imaging center slumped over and unresponsive in her chair. She reportedly had coffee-ground emesis and was apneic. She was taken to [facility] where her WBC was noted to be 6.3, hemoglobin 10.6, hematocrit 34.5, potassium 5.2. CXR shosed mild bibasilar opacities and small bilateral pleural effusions, consitent with infection and aspiration. She has been intubated and admitted to the ICU for further medical management. Past Medical History Pulmonary: COPD Past Surgical History Past Surgical History: No pertinent history Family History Family History: Family History Unknown Social History Smoke: Quit ALCOHOL: none Drugs: None Current Problem List Problem List Problems Medical Problems: (1) AMS (altered mental status) Status: Acute (2) Respiratory failure Status: Acute Current Medications Current Medications Current Medications Rocuronium [place] (Zemuron) 50 mg 1X ONCE IV Last administered on 07/16/21at 18:33; Start 07/16/21 at 16:00; Stop 07/16/21 at 16:03; Status DC Etomidate (Amidate) 18 mg 1X ONCE IV Last administered on 07/16/21at 18:32; Start 07/16/21 at 16:00; Stop 07/16/21 at 16:03; Status DC Fentanyl Citrate (Fentanyl 2ml Vial) 50 mcg 1X ONCE IVP ; Start 07/16/21 at 16:00; Stop 07/16/21 at 16:03; Status DC Propofol 100 ml @ 1.68 mls/hr CONT PRN IV PER PROTOCOL Last administered on 07/17/21at 07:42; Start 07/16/21 at 16:00 Iohexol (Omnipaque 350 Mg/ml) 75 ml 1X ONCE IV Last administered on 07/16/21at 17:15; Start 07/16/21 at 17:15; Stop 07/16/21 at 17:16; Status DC Fentanyl Citrate (Fentanyl 2ml Vial) 100 mcg 1X ONCE IVP ; Start 07/16/21 at 18:45; Stop 07/16/21 at 18:46; Status DC Fentanyl Citrate 30 ml @ 0 mls/hr CONT PRN IV SEE PROTOCOL; Start 07/16/21 at 18:45; Status Cancel Ketamine HCl (Ketamine) 50 mg STK-MED ONCE .ROUTE ; Start 07/16/21 at 19:16; Stop 07/16/21 at 19:16; Status DC Fentanyl Citrate 30 ml @ 0 mls/hr CONT PRN IV SEE PROTOCOL Last administered on 07/17/21at 05:05; Start 07/16/21 at 19:44 Ketamine HCl (Ketamine) 65 mg 1X ONCE IV Last administered on 07/16/21at 19:25; Start 07/16/21 at 20:00; Stop 07/16/21 at 20:01; Status DC Sennosides (Senna) 17.2 mg PRN BID PRN PO CONSTIPATION; Start 07/16/21 at 20:30 Docusate Sodium (Colace) 100 mg PRN DAILY PRN PO HARD STOOLS; Start 07/16/21 at 20:30 Ondansetron HCl (Zofran) 4 mg PRN Q6HRS PRN IVP NAUSEA/VOMITING, 1st CHOICE; Start 07/16/21 at 20:30 Dextrose (Dextrose 50%-Water Syringe) 12.5 gm PRN Q15MIN PRN IV SEE COMMENTS; Start 07/16/21 at 20:30 Acetaminophen (Tylenol) 650 mg PRN Q4HRS PRN PO TEMP OVER 100.4F OR MILD PAIN; Start 07/16/21 at 20:30 Lorazepam (Ativan) 0.5 mg PRN Q6HRS PRN PO ANXIETY / AGITATION; Start 07/16/21 at 20:30 Lorazepam (Ativan Inj) 0.25 mg PRN Q4HRS PRN IV ANXIETY / AGITATION; Start 07/16/21 at 20:30 Prochlorperazine Edisylate (Compazine) 10 mg PRN Q6HRS PRN IV NAUSEA/VOMITING, 2nd CHOICE; Start 07/16/21 at 20:30 Diphenhydramine HCl (Benadryl) 25 mg PRN Q6HRS PRN IVP ITCHING; Start 07/16/21 at 20:30 Diphenhydramine HCl (Benadryl) 25 mg PRN Q6HRS PRN PO ITCHING; Start 07/16/21 at 20:30 Diphenhydramine HCl (Benadryl) 25 mg PRN QHS PRN PO INSOMNIA, 1st CHOICE; Start 07/16/21 at 20:30 Zolpidem Tartrate (Ambien) 2.5 mg PRN QHS PRN PO INSOMNIA, 2nd CHOICE; Start 07/16/21 at 20:30 Enoxaparin Sodium (Lovenox 40mg Syringe) 40 mg Q24H SQ Last administered on 07/04 06/24at 22:24; Start 07/16/21 at 21:00 Pantoprazole Sodium (PROTONIX VIAL for IV PUSH) 40 mg DAILYAC IVP Last administered on 07/17/21at 07:57; Start 07/17/21 at 07:30 Active Scripts Active Vitamin C (Ascorbic Acid) 500 Mg Tablet 1,000 Mg PO DAILY 30 Days Reported Duoneb 0.5-3(2.5) Mg/3 Ml (Albuterol/Ipratropium) 3 Ml Ampul.neb 3 Ml NEB Q6HRS Allergies Allergies: Coded Allergies: No Known Drug Allergies (Unverified , 06/20/21) ROS Review of System Unable to obtain at this time due to clinical condition Physical Exam Physical Exam General: Arousable on vent, no acute distress. HEENT: Atraumatic, EOMI Lungs: Bilateral wheezing, bibasilar rales Heart: RRR with occasional PVC, no rubs Cardiovascular: S1, S2 Abdomen: Normal bowel sounds, Soft, No tenderness Extremities: +1 bilateral leg edema Skin: Chronic trophic changes with hemosiderin stains. No significant lesion Neuro: Sedated on vent. Psych/Mental Status: Sedated on ventilator Vitals Vitals Vital Signs Date Time Temp Pulse Resp B/P (MAP) Pulse Ox O2 Delivery O2 Flow Rate FiO2 07/17/21 07:29 100 Ventilator 07/17/21 06:00 70 20 114/65 07/17/21 04:00 98.5 98.5 Labs Labs Laboratory Tests Test 07/16/21 15:39 07/16/21 15:45 07/16/21 16:35 07/16/21 17:20 Glucose (Fingerstick) 137 mg/dL (70-99) White Blood Count 6.3 x10^3/uL (4.0-11.0) Red Blood Count 3.68 x10^6/uL (3.50-5.40) Hemoglobin 10.6 g/dL (12.0-15.5) Hematocrit 34.5 % (36.0-47.0) Mean Corpuscular Volume 94 fL (79-100) Mean Corpuscular Hemoglobin 29 pg (25-35) Mean Corpuscular Hemoglobin Concent 31 g/dL (31-37) Red Cell Distribution Width 15.4 % (11.5-14.5) Platelet Count 262 x10^3/uL (140-400) Neutrophils (%) (Auto) 79 % (31-73) Lymphocytes (%) (Auto) 12 % (24-48) Monocytes (%) (Auto) 7 % (0-9) Eosinophils (%) (Auto) 2 % (0-3) Basophils (%) (Auto) 1 % (0-3) Neutrophils # (Auto) 5.0 x10^3/uL (1.8-7.7) Lymphocytes # (Auto) 0.8 x10^3/uL (1.0-4.8) Monocytes # (Auto) 0.4 x10^3/uL (0.0-1.1) Eosinophils # (Auto) 0.1 x10^3/uL (0.0-0.7) Basophils # (Auto) 0.1 x10^3/uL (0.0-0.2) Prothrombin Time 11.4 SEC (11.7-14.0) Prothromb Time International Ratio 0.9 (0.8-1.1) Activated Partial Thromboplast Time 27 SEC (24-38) Sodium Level 137 mmol/L (136-145) Potassium Level 5.2 mmol/L (3.5-5.1) Chloride Level 99 mmol/L (98-107) Carbon Dioxide Level 41 mmol/L (21-32) Anion Gap (6-14) Blood Urea Nitrogen 17 mg/dL (7-20) Creatinine 0.9 mg/dL (0.6-1.0) Estimated GFR (Cockcroft-Gault) 59.1 Glucose Level 132 mg/dL (70-99) Calcium Level 9.3 mg/dL (8.5-10.1) Troponin I High Sensitivity 106 ng/L (4-50) O2 Saturation 99 % (92-99) 99 % (92-99) Arterial Blood pH 7.46 (7.35-7.45) 7.40 (7.35-7.45) Arterial Blood pCO2 at Patient Temp 51 mmHg (35-46) 57 mmHg (35-46) Arterial Blood pO2 at Patient Temp 431 mmHg (65-108) 220 mmHg (65-108) Arterial Blood HCO3 36 mmol/L (21-28) 35 mmol/L (21-28) Arterial Blood Base Excess 10 mmol/L (-3-3) 8 mmol/L (-3-3) FiO2 100 50 Test 07/16/21 18:54 07/17/21 04:55 07/17/21 07:35 Troponin I High Sensitivity 95 ng/L (4-50) White Blood Count 6.6 x10^3/uL (4.0-11.0) Red Blood Count 3.23 x10^6/uL (3.50-5.40) Hemoglobin 9.6 g/dL (12.0-15.5) Hematocrit 30.0 % (36.0-47.0) Mean Corpuscular Volume 93 fL (79-100) Mean Corpuscular Hemoglobin 30 pg (25-35) Mean Corpuscular Hemoglobin Concent 32 g/dL (31-37) Red Cell Distribution Width 14.9 % (11.5-14.5) Platelet Count 216 x10^3/uL (140-400) Neutrophils (%) (Auto) 75 % (31-73) Lymphocytes (%) (Auto) 12 % (24-48) Monocytes (%) (Auto) 10 % (0-9) Eosinophils (%) (Auto) 2 % (0-3) Basophils (%) (Auto) 0 % (0-3) Neutrophils # (Auto) 5.0 x10^3/uL (1.8-7.7) Lymphocytes # (Auto) 0.8 x10^3/uL (1.0-4.8) Monocytes # (Auto) 0.7 x10^3/uL (0.0-1.1) Eosinophils # (Auto) 0.2 x10^3/uL (0.0-0.7) Basophils # (Auto) 0.0 x10^3/uL (0.0-0.2) Sodium Level 140 mmol/L (136-145) Potassium Level 5.0 mmol/L (3.5-5.1) Chloride Level 101 mmol/L (98-107) Carbon Dioxide Level 34 mmol/L (21-32) Anion Gap 5 (6-14) Blood Urea Nitrogen 18 mg/dL (7-20) Creatinine 0.8 mg/dL (0.6-1.0) Estimated GFR (Cockcroft-Gault) 67.7 BUN/Creatinine Ratio 23 (6-20) Glucose Level 71 mg/dL (70-99) Calcium Level 8.9 mg/dL (8.5-10.1) Phosphorus Level 1.8 mg/dL (2.6-4.7) Magnesium Level 2.2 mg/dL (1.8-2.4) Total Bilirubin 0.4 mg/dL (0.2-1.0) Aspartate Amino Transf (AST/SGOT) 20 U/L (15-37) Alanine Aminotransferase (ALT/SGPT) 18 U/L (14-59) Alkaline Phosphatase 55 U/L (46-116) Total Protein 5.6 g/dL (6.4-8.2) Albumin 2.4 g/dL (3.4-5.0) Albumin/Globulin Ratio 0.8 (1.0-1.7) O2 Saturation 98 % (92-99) Arterial Blood pH 7.56 (7.35-7.45) Arterial Blood pCO2 at Patient Temp 39 mmHg (35-46) Arterial Blood pO2 at Patient Temp 96 mmHg (65-108) Arterial Blood HCO3 34 mmol/L (21-28) Arterial Blood Base Excess 11 mmol/L (-3-3) FiO2 40 Laboratory Tests Test 07/16/21 15:39 07/16/21 15:45 07/16/21 16:35 07/16/21 17:20 Glucose (Fingerstick) 137 mg/dL (70-99) White Blood Count 6.3 x10^3/uL (4.0-11.0) Red Blood Count 3.68 x10^6/uL (3.50-5.40) Hemoglobin 10.6 g/dL (12.0-15.5) Hematocrit 34.5 % (36.0-47.0) Mean Corpuscular Volume 94 fL (79-100) Mean Corpuscular Hemoglobin 29 pg (25-35) Mean Corpuscular Hemoglobin Concent 31 g/dL (31-37) Red Cell Distribution Width 15.4 % (11.5-14.5) Platelet Count 262 x10^3/uL (140-400) Neutrophils (%) (Auto) 79 % (31-73) Lymphocytes (%) (Auto) 12 % (24-48) Monocytes (%) (Auto) 7 % (0-9) Eosinophils (%) (Auto) 2 % (0-3) Basophils (%) (Auto) 1 % (0-3) Neutrophils # (Auto) 5.0 x10^3/uL (1.8-7.7) Lymphocytes # (Auto) 0.8 x10^3/uL (1.0-4.8) Monocytes # (Auto) 0.4 x10^3/uL (0.0-1.1) Eosinophils # (Auto) 0.1 x10^3/uL (0.0-0.7) Basophils # (Auto) 0.1 x10^3/uL (0.0-0.2) Prothrombin Time 11.4 SEC (11.7-14.0) Prothromb Time International Ratio 0.9 (0.8-1.1) Activated Partial Thromboplast Time 27 SEC (24-38) Sodium Level 137 mmol/L (136-145) Potassium Level 5.2 mmol/L (3.5-5.1) Chloride Level 99 mmol/L (98-107) Carbon Dioxide Level 41 mmol/L (21-32) Anion Gap (6-14) Blood Urea Nitrogen 17 mg/dL (7-20) Creatinine 0.9 mg/dL (0.6-1.0) Estimated GFR (Cockcroft-Gault) 59.1 Glucose Level 132 mg/dL (70-99) Calcium Level 9.3 mg/dL (8.5-10.1) Troponin I High Sensitivity 106 ng/L (4-50) O2 Saturation 99 % (92-99) 99 % (92-99) Arterial Blood pH 7.46 (7.35-7.45) 7.40 (7.35-7.45) Arterial Blood pCO2 at Patient Temp 51 mmHg (35-46) 57 mmHg (35-46) Arterial Blood pO2 at Patient Temp 431 mmHg (65-108) 220 mmHg (65-108) Arterial Blood HCO3 36 mmol/L (21-28) 35 mmol/L (21-28) Arterial Blood Base Excess 10 mmol/L (-3-3) 8 mmol/L (-3-3) FiO2 100 50 Test 07/16/21 18:54 07/17/21 04:55 07/17/21 07:35 Troponin I High Sensitivity 95 ng/L (4-50) White Blood Count 6.6 x10^3/uL (4.0-11.0) Red Blood Count 3.23 x10^6/uL (3.50-5.40) Hemoglobin 9.6 g/dL (12.0-15.5) Hematocrit 30.0 % (36.0-47.0) Mean Corpuscular Volume 93 fL (79-100) Mean Corpuscular Hemoglobin 30 pg (25-35) Mean Corpuscular Hemoglobin Concent 32 g/dL (31-37) Red Cell Distribution Width 14.9 % (11.5-14.5) Platelet Count 216 x10^3/uL (140-400) Neutrophils (%) (Auto) 75 % (31-73) Lymphocytes (%) (Auto) 12 % (24-48) Monocytes (%) (Auto) 10 % (0-9) Eosinophils (%) (Auto) 2 % (0-3) Basophils (%) (Auto) 0 % (0-3) Neutrophils # (Auto) 5.0 x10^3/uL (1.8-7.7) Lymphocytes # (Auto) 0.8 x10^3/uL (1.0-4.8) Monocytes # (Auto) 0.7 x10^3/uL (0.0-1.1) Eosinophils # (Auto) 0.2 x10^3/uL (0.0-0.7) Basophils # (Auto) 0.0 x10^3/uL (0.0-0.2) Sodium Level 140 mmol/L (136-145) Potassium Level 5.0 mmol/L (3.5-5.1) Chloride Level 101 mmol/L (98-107) Carbon Dioxide Level 34 mmol/L (21-32) Anion Gap 5 (6-14) Blood Urea Nitrogen 18 mg/dL (7-20) Creatinine 0.8 mg/dL (0.6-1.0) Estimated GFR (Cockcroft-Gault) 67.7 BUN/Creatinine Ratio 23 (6-20) Glucose Level 71 mg/dL (70-99) Calcium Level 8.9 mg/dL (8.5-10.1) Phosphorus Level 1.8 mg/dL (2.6-4.7) Magnesium Level 2.2 mg/dL (1.8-2.4) Total Bilirubin 0.4 mg/dL (0.2-1.0) Aspartate Amino Transf (AST/SGOT) 20 U/L (15-37) Alanine Aminotransferase (ALT/SGPT) 18 U/L (14-59) Alkaline Phosphatase 55 U/L (46-116) Total Protein 5.6 g/dL (6.4-8.2) Albumin 2.4 g/dL (3.4-5.0) Albumin/Globulin Ratio 0.8 (1.0-1.7) O2 Saturation 98 % (92-99) Arterial Blood pH 7.56 (7.35-7.45) Arterial Blood pCO2 at Patient Temp 39 mmHg (35-46) Arterial Blood pO2 at Patient Temp 96 mmHg (65-108) Arterial Blood HCO3 34 mmol/L (21-28) Arterial Blood Base Excess 11 mmol/L (-3-3) FiO2 40 Images Images PATIENT: KIMBER BELLE ACCOUNT: [id number] : 1935 LOCATION: ER AGE: 86 SEX: F EXAM STATUS: REG ER ORD. PHYSICIAN: KATHRYN HENDRICKSON DO REASON: ams, post intubation PROCEDURE: PORTABLE CHEST 1V XR CHEST 2V, XR CHEST 1V History: Possible aspiration. Altered mental status post intubation. Comparison: None. Technique: PA and lateral chest radiographs timed stamped at 3:24 PM with subsequent AP portable chest x-ray time stamped at 4:00 PM. Findings: The lungs are hyperinflated. There is left basilar opacity and small left greater than right pleural effusions. No pneumothorax. The cardiac silhouette is enlarged and the pulmonary vasculature is cephalized. Degenerative changes of the shoulders and spine. Decreased osseous mineralization. Postintubation radiograph demonstrates similar pulmonary findings with no endotracheal tube tip projecting approximately 6 cm above the david. Impression: 1. Endotracheal tube projecting approximately 6 cm above the david. 2. Mild bibasilar opacities and small bilateral pleural effusions. Findings may be due to interstitial edema. Infection and aspiration are not excluded. VTE Prophylaxis Ordered VTE Prophylaxis Devices: No VTE Pharmacological Prophylaxi: Yes Assessment/Plan Assessment/Plan Acute respiratory failure with hypoxia Aspiration pneumonia AMS History COPD Plan: Consultation has been placed to neurology We will cover for likely aspiration pneumonia with Zosyn Consultation placed to pulmonology for vent management and history of COPD CRP pending Resume what home medications we can FEN - NPO PPX - Heparin FULL CODE/no surrogate decision-maker is been named at this time Dispo - inpatient for above Critical care time 30 minutes spent reviewing charts, reviewing labs, reviewing imaging, discussion with neurology, and discussion with RN. Justifications for Admission Other Justification Respiratory failure DOMINGO ROMERO MD Jul 17, 2021 09:38
--- NOTE | 2021-07-17 11:00 | NUR ---
Dr. Buchanan notified of decreased urine output of 15-25 cc/hour.
--- NOTE | 2021-07-17 11:40 | NUR ---
Propofol and Fentanyl turned off temporarily for sedation vacation.
[2021-07-17] MEDS ORDERED: PIP/TAZO PER PHARMACY MC PRN (11:45)
--- NOTE | 2021-07-17 11:48 | CONS ---
DATE OF CONSULTATION: 07/17/2021 ATTENDING PHYSICIAN: Dr. Moore. REASON FOR CONSULTATION: Respiratory failure. HISTORY OF PRESENT ILLNESS: The patient is an 86-year-old female who was brought into the hospital after she slumped over at the outpatient department and was unresponsive while waiting in the chair at the waiting room. She had some coffee-ground emesis. She was apneic. She was intubated by the ER physician. The patient is now in the ICU. I have reviewed the patient's ABGs which showed a pH of 7.46, pCO2 of 51 and a pO2 of 430 on 100% FiO2. She is currently down to 40% FiO2 and 6 of PEEP. Her ABGs earlier showed a pH of 7.56, pCO2 of 39, pO2 of 96. The rate is down to 10 now. I have reviewed the patient's chest x-ray and it shows the skin fold rather than any true pneumothorax. There were slightly prominent interstitial markings. A consultation requested for further evaluation and management. She is hemodynamically stable. She is not on any vasopressors. PAST MEDICAL HISTORY: Unknown. PAST SURGICAL HISTORY: Unknown. ALLERGIES: None. MEDICATIONS: Medications in the ICU were all reviewed. REVIEW OF SYSTEMS: Unable to obtain as she is on the ventilator. FAMILY HISTORY: Unable to obtain. PHYSICAL EXAMINATION: VITAL SIGNS: Vital signs were reviewed. Blood pressure is stable while on low dose propofol and fentanyl. HEENT: Sclerae nonicteric. NECK: Supple. LUNGS: With diminished breath sounds. CARDIOVASCULAR: With a regular rate. ABDOMEN: Soft, nontender. EXTREMITIES: With some venous stasis and pitting edema and erythema. LABORATORY DATA: Labs are reviewed. ABGs discussed in my history of present illness. BUN 18, creatinine 0.8. Albumin 2.4. INR 0.9. White cell count 6.6, hemoglobin 9.6 and platelets are 216. IMPRESSION: 1. Acute respiratory failure secondary to acute encephalopathy. Etiology not so obvious. She had a CT angiogram and there was no significant large vessel occlusion. No significant stenosis of the cervical, carotid or vertebral arteries. We will have to assess her mental status while off sedation. 2. Abnormal chest x-ray with slightly prominent interstitial markings and a skin fold. No definite pneumothorax. We will repeat chest x-ray. 3. Moderate to severe protein-calorie malnutrition. RECOMMENDATIONS: 1. Discussed with RN. We will try her off sedation and assess her mental status. May need a repeat CT head if does not respond. 2. Enteral nutrition. 3. DVT prophylaxis with Lovenox. 4. Obtain echocardiogram. 5. Avoid any benzos. 6. Discussed with RN and RT. Chart reviewed, imaging studies reviewed. Total critical care time 37 minutes. JESSE/RICKY DR: Drake TID: [id number]
[2021-07-17] MEDS: IPRATRPIUM/ALBUTEROL 0.5/2.5MG 3 ML NEBU. NEB SCH ×2 (11:52→21:30)
--- NOTE | 2021-07-17 11:55 | NUR ---
Patient arouses to voice. Follows commands by moving all extremities.
[2021-07-17] MEDS: PIPERACILLIN/TAZOBACTAM 2.25 GM in IV NORMAL SALINE 50ML 50 ML IV SCH ×2 (12:00→17:33)
--- NOTE | 2021-07-17 12:30 | NUR ---
Wound Care Wound Type/Assessment: patient seen per wound care consult. see wound assessment. patient has skin tears to the right and left arm and left lower leg. the wounds were cleaned and redressed with Xeroform gauze with a foam dressing. patient has an unknown wound to the right buttock, unable to assess the base of the wound. the wound was cleaned, applied Betadine to the wound with a foam dressing over. Patient had red but blanchable bilateral heels, applied foam dressings to bilateral heels for prevention. Treatment Recommendations/Plan: Recommendations to skin tears to the left and right arm and the left lower leg- cleanse the wounds, then apply Xeroform gauze with a foam dressing, change every 2-3 days. Recommendations for the right buttock- cleanse the wound then paint with Betadine and apply a foam dressing over, change every 2-3 days. Offloading surface/device: Patient currently on an ICU bed. Patient needs to be turning every 2 hours, patient turned to the right side at this time. Patients heels offloaded with pillows at this time. Discharge Recommendations for dressings: Wound care will continue to f/u for changes.
--- NOTE | 2021-07-17 13:42 | PDOC2 ---
NEUROLOGY CONSULT Date of Service DOS: DATE: 07/17/21 TIME: 13:24 Reason for Consult Reason for Consult: Altered mental status Referring Physician Referring Physician: Dr. Buchanan Source Source: Caregiver (son), Chart review History of Present Illness History of Present Illness Patient is an 86-year-old female with past medical history COPD who came over from [facility] for a chest x-ray yesterday. She was found slumped over in the x-ray room, was brought over to emergency department where she was intubated. She was found to have coffee-ground emesis. Note that she was just here 2 weeks ago with a COPD exacerbation, also found to have evidence of aspiration, and then was at [facility]. She has been more and more debilitated over the last few years. I discussed the case with Dr. Solares, patient was termed a code stroke, but we agreed that this is probably not a stroke. I did suggest a CT angiogram which has been done. According to son patient has no prior history of stroke, seizure, or head injury. Past Medical History Pulmonary: COPD, Pneumonia (Aspiration) CENTRAL NERVOUS SYSTEM: Other (Dysphagia) Musculoskeletal: Muscle atrophy Renal/: Urinary Incontinence Dermatology: Other (Decubitus) Past Surgical History Past Surgical History: No pertinent history Family History Family History: No pertinent hx Social History Social History , currently in a half-way, ex-smoker, no alcohol Current Medications Current Medications Current Medications Rocuronium [place] (Zemuron) 50 mg 1X ONCE IV Last administered on 07/16/21at 18:33; Start 07/16/21 at 16:00; Stop 07/16/21 at 16:03; Status DC Etomidate (Amidate) 18 mg 1X ONCE IV Last administered on 07/16/21at 18:32; Start 07/16/21 at 16:00; Stop 07/16/21 at 16:03; Status DC Fentanyl Citrate (Fentanyl 2ml Vial) 50 mcg 1X ONCE IVP ; Start 07/16/21 at 16:00; Stop 07/16/21 at 16:03; Status DC Propofol 100 ml @ 1.68 mls/hr CONT PRN IV PER PROTOCOL Last administered on 07/17/21at 07:42; Start 07/16/21 at 16:00 Iohexol (Omnipaque 350 Mg/ml) 75 ml 1X ONCE IV Last administered on 07/16/21at 17:15; Start 07/16/21 at 17:15; Stop 07/16/21 at 17:16; Status DC Fentanyl Citrate (Fentanyl 2ml Vial) 100 mcg 1X ONCE IVP ; Start 07/16/21 at 18:45; Stop 07/16/21 at 18:46; Status DC Fentanyl Citrate 30 ml @ 0 mls/hr CONT PRN IV SEE PROTOCOL; Start 07/16/21 at 18:45; Status Cancel Ketamine HCl (Ketamine) 50 mg STK-MED ONCE .ROUTE ; Start 07/16/21 at 19:16; Stop 07/16/21 at 19:16; Status DC Fentanyl Citrate 30 ml @ 0 mls/hr CONT PRN IV SEE PROTOCOL Last administered on 07/17/21at 05:05; Start 07/16/21 at 19:44 Ketamine HCl (Ketamine) 65 mg 1X ONCE IV Last administered on 07/16/21at 19:25; Start 07/16/21 at 20:00; Stop 07/16/21 at 20:01; Status DC Sennosides (Senna) 17.2 mg PRN BID PRN PO CONSTIPATION; Start 07/16/21 at 20:30 Docusate Sodium (Colace) 100 mg PRN DAILY PRN PO HARD STOOLS; Start 07/16/21 at 20:30 Ondansetron HCl (Zofran) 4 mg PRN Q6HRS PRN IVP NAUSEA/VOMITING, 1st CHOICE; Start 07/16/21 at 20:30 Dextrose (Dextrose 50%-Water Syringe) 12.5 gm PRN Q15MIN PRN IV SEE COMMENTS; Start 07/16/21 at 20:30 Acetaminophen (Tylenol) 650 mg PRN Q4HRS PRN PO TEMP OVER 100.4F OR MILD PAIN; Start 07/16/21 at 20:30 Lorazepam (Ativan) 0.5 mg PRN Q6HRS PRN PO ANXIETY / AGITATION; Start 07/16/21 at 20:30 Lorazepam (Ativan Inj) 0.25 mg PRN Q4HRS PRN IV ANXIETY / AGITATION; Start 07/16/21 at 20:30 Prochlorperazine Edisylate (Compazine) 10 mg PRN Q6HRS PRN IV NAUSEA/VOMITING, 2nd CHOICE; Start 07/16/21 at 20:30 Diphenhydramine HCl (Benadryl) 25 mg PRN Q6HRS PRN IVP ITCHING; Start 07/16/21 at 20:30 Diphenhydramine HCl (Benadryl) 25 mg PRN Q6HRS PRN PO ITCHING; Start 07/16/21 at 20:30 Diphenhydramine HCl (Benadryl) 25 mg PRN QHS PRN PO INSOMNIA, 1st CHOICE; Start 07/16/21 at 20:30 Zolpidem Tartrate (Ambien) 2.5 mg PRN QHS PRN PO INSOMNIA, 2nd CHOICE; Start 07/16/21 at 20:30 Enoxaparin Sodium (Lovenox 40mg Syringe) 40 mg Q24H SQ Last administered on 07/16/21at 22:24; Start 07/16/21 at 21:00 Pantoprazole Sodium (PROTONIX VIAL for IV PUSH) 40 mg DAILYAC IVP Last administered on 07/17/21at 07:57; Start 07/17/21 at 07:30 Piperacillin Sod/ Tazobactam Sod (Zosyn Per Pharmacy) 1 each PRN DAILY PRN MC SEE COMMENTS; Start 07/17/21 at 11:45 Albuterol/ Ipratropium (Duoneb) 3 ml Q6HRS NEB Last administered on 07/17/21at 11:52; Start 07/17/21 at 12:00 Piperacillin Sod/ Tazobactam Sod 2.25 gm/Sodium Chloride 50 ml @ 100 mls/hr Q6HRS IV ; Start 07/17/21 at 12:00 Active Scripts Active Vitamin C (Ascorbic Acid) 500 Mg Tablet 1,000 Mg PO DAILY 30 Days Reported Duoneb 0.5-3(2.5) Mg/3 Ml (Albuterol/Ipratropium) 3 Ml Ampul.neb 3 Ml NEB Q6HRS Allergies Allergies: Coded Allergies: No Known Drug Allergies (Unverified , 06/20/21) ROS Review of System Negative for fever, chills, weight loss, chest pain, indigestion, hematochezia, melena. Positive for dyspnea and urinary incontinence. Full 14-point review of systems is negative. Physical Exam Physical Examination General: Well-developed, well-nourished white female in no acute distress HEENT: Normocephalic andatraumatic. Temporal arteriespulsatile and nontender. Neck: Supple without bruit, no meningismus Musculoskeletal: Stability:see neurologic. Gait exam:see neurologic. Tone:see neurologic.Strength:see neurologic. Neurological: Mental Status:Intubated, eyes open, regards observer, does not follow commands. Cranial Nerves:Pupils equal and reactive to light, extraocular movements areintact, visual soriano are full to threat. There is no facial asymmetry. All other cranial related problems are negative except as mentioned before.Reflexes:1+ and symmetric with flexor plantar responses. Motor:slight movement to pain. Coordination and gait:not testable. Sensory:not testable. Vitals VITALS Vital Signs Date Time Temp Pulse Resp B/P (MAP) Pulse Ox O2 Delivery O2 Flow Rate FiO2 07/17/21 11:59 100 Ventilator 07/17/21 11:00 64 10 128/70 07/17/21 07:00 99.0 99.0 Labs Labs Laboratory Tests Test 07/16/21 15:39 07/16/21 15:45 07/16/21 16:35 07/16/21 17:20 Glucose (Fingerstick) 137 mg/dL (70-99) White Blood Count 6.3 x10^3/uL (4.0-11.0) Red Blood Count 3.68 x10^6/uL (3.50-5.40) Hemoglobin 10.6 g/dL (12.0-15.5) Hematocrit 34.5 % (36.0-47.0) Mean Corpuscular Volume 94 fL (79-100) Mean Corpuscular Hemoglobin 29 pg (25-35) Mean Corpuscular Hemoglobin Concent 31 g/dL (31-37) Red Cell Distribution Width 15.4 % (11.5-14.5) Platelet Count 262 x10^3/uL (140-400) Neutrophils (%) (Auto) 79 % (31-73) Lymphocytes (%) (Auto) 12 % (24-48) Monocytes (%) (Auto) 7 % (0-9) Eosinophils (%) (Auto) 2 % (0-3) Basophils (%) (Auto) 1 % (0-3) Neutrophils # (Auto) 5.0 x10^3/uL (1.8-7.7) Lymphocytes # (Auto) 0.8 x10^3/uL (1.0-4.8) Monocytes # (Auto) 0.4 x10^3/uL (0.0-1.1) Eosinophils # (Auto) 0.1 x10^3/uL (0.0-0.7) Basophils # (Auto) 0.1 x10^3/uL (0.0-0.2) Prothrombin Time 11.4 SEC (11.7-14.0) Prothromb Time International Ratio 0.9 (0.8-1.1) Activated Partial Thromboplast Time 27 SEC (24-38) Sodium Level 137 mmol/L (136-145) Potassium Level 5.2 mmol/L (3.5-5.1) Chloride Level 99 mmol/L (98-107) Carbon Dioxide Level 41 mmol/L (21-32) Anion Gap (6-14) Blood Urea Nitrogen 17 mg/dL (7-20) Creatinine 0.9 mg/dL (0.6-1.0) Estimated GFR (Cockcroft-Gault) 59.1 Glucose Level 132 mg/dL (70-99) Calcium Level 9.3 mg/dL (8.5-10.1) Troponin I High Sensitivity 106 ng/L (4-50) O2 Saturation 99 % (92-99) 99 % (92-99) Arterial Blood pH 7.46 (7.35-7.45) 7.40 (7.35-7.45) Arterial Blood pCO2 at Patient Temp 51 mmHg (35-46) 57 mmHg (35-46) Arterial Blood pO2 at Patient Temp 431 mmHg (65-108) 220 mmHg (65-108) Arterial Blood HCO3 36 mmol/L (21-28) 35 mmol/L (21-28) Arterial Blood Base Excess 10 mmol/L (-3-3) 8 mmol/L (-3-3) FiO2 100 50 Test 07/16/21 18:54 07/17/21 04:55 07/17/21 07:35 Troponin I High Sensitivity 95 ng/L (4-50) White Blood Count 6.6 x10^3/uL (4.0-11.0) Red Blood Count 3.23 x10^6/uL (3.50-5.40) Hemoglobin 9.6 g/dL (12.0-15.5) Hematocrit 30.0 % (36.0-47.0) Mean Corpuscular Volume 93 fL (79-100) Mean Corpuscular Hemoglobin 30 pg (25-35) Mean Corpuscular Hemoglobin Concent 32 g/dL (31-37) Red Cell Distribution Width 14.9 % (11.5-14.5) Platelet Count 216 x10^3/uL (140-400) Neutrophils (%) (Auto) 75 % (31-73) Lymphocytes (%) (Auto) 12 % (24-48) Monocytes (%) (Auto) 10 % (0-9) Eosinophils (%) (Auto) 2 % (0-3) Basophils (%) (Auto) 0 % (0-3) Neutrophils # (Auto) 5.0 x10^3/uL (1.8-7.7) Lymphocytes # (Auto) 0.8 x10^3/uL (1.0-4.8) Monocytes # (Auto) 0.7 x10^3/uL (0.0-1.1) Eosinophils # (Auto) 0.2 x10^3/uL (0.0-0.7) Basophils # (Auto) 0.0 x10^3/uL (0.0-0.2) Sodium Level 140 mmol/L (136-145) Potassium Level 5.0 mmol/L (3.5-5.1) Chloride Level 101 mmol/L (98-107) Carbon Dioxide Level 34 mmol/L (21-32) Anion Gap 5 (6-14) Blood Urea Nitrogen 18 mg/dL (7-20) Creatinine 0.8 mg/dL (0.6-1.0) Estimated GFR (Cockcroft-Gault) 67.7 BUN/Creatinine Ratio 23 (6-20) Glucose Level 71 mg/dL (70-99) Calcium Level 8.9 mg/dL (8.5-10.1) Phosphorus Level 1.8 mg/dL (2.6-4.7) Magnesium Level 2.2 mg/dL (1.8-2.4) Total Bilirubin 0.4 mg/dL (0.2-1.0) Aspartate Amino Transf (AST/SGOT) 20 U/L (15-37) Alanine Aminotransferase (ALT/SGPT) 18 U/L (14-59) Alkaline Phosphatase 55 U/L (46-116) C-Reactive Protein, Quantitative 13.6 mg/L (0-3.3) Total Protein 5.6 g/dL (6.4-8.2) Albumin 2.4 g/dL (3.4-5.0) Albumin/Globulin Ratio 0.8 (1.0-1.7) O2 Saturation 98 % (92-99) Arterial Blood pH 7.56 (7.35-7.45) Arterial Blood pCO2 at Patient Temp 39 mmHg (35-46) Arterial Blood pO2 at Patient Temp 96 mmHg (65-108) Arterial Blood HCO3 34 mmol/L (21-28) Arterial Blood Base Excess 11 mmol/L (-3-3) FiO2 40 Laboratory Tests Test 07/16/21 15:39 07/16/21 15:45 07/16/21 16:35 07/16/21 17:20 Glucose (Fingerstick) 137 mg/dL (70-99) White Blood Count 6.3 x10^3/uL (4.0-11.0) Red Blood Count 3.68 x10^6/uL (3.50-5.40) Hemoglobin 10.6 g/dL (12.0-15.5) Hematocrit 34.5 % (36.0-47.0) Mean Corpuscular Volume 94 fL (79-100) Mean Corpuscular Hemoglobin 29 pg (25-35) Mean Corpuscular Hemoglobin Concent 31 g/dL (31-37) Red Cell Distribution Width 15.4 % (11.5-14.5) Platelet Count 262 x10^3/uL (140-400) Neutrophils (%) (Auto) 79 % (31-73) Lymphocytes (%) (Auto) 12 % (24-48) Monocytes (%) (Auto) 7 % (0-9) Eosinophils (%) (Auto) 2 % (0-3) Basophils (%) (Auto) 1 % (0-3) Neutrophils # (Auto) 5.0 x10^3/uL (1.8-7.7) Lymphocytes # (Auto) 0.8 x10^3/uL (1.0-4.8) Monocytes # (Auto) 0.4 x10^3/uL (0.0-1.1) Eosinophils # (Auto) 0.1 x10^3/uL (0.0-0.7) Basophils # (Auto) 0.1 x10^3/uL (0.0-0.2) Prothrombin Time 11.4 SEC (11.7-14.0) Prothromb Time International Ratio 0.9 (0.8-1.1) Activated Partial Thromboplast Time 27 SEC (24-38) Sodium Level 137 mmol/L (136-145) Potassium Level 5.2 mmol/L (3.5-5.1) Chloride Level 99 mmol/L (98-107) Carbon Dioxide Level 41 mmol/L (21-32) Anion Gap (6-14) Blood Urea Nitrogen 17 mg/dL (7-20) Creatinine 0.9 mg/dL (0.6-1.0) Estimated GFR (Cockcroft-Gault) 59.1 Glucose Level 132 mg/dL (70-99) Calcium Level 9.3 mg/dL (8.5-10.1) Troponin I High Sensitivity 106 ng/L (4-50) O2 Saturation 99 % (92-99) 99 % (92-99) Arterial Blood pH 7.46 (7.35-7.45) 7.40 (7.35-7.45) Arterial Blood pCO2 at Patient Temp 51 mmHg (35-46) 57 mmHg (35-46) Arterial Blood pO2 at Patient Temp 431 mmHg (65-108) 220 mmHg (65-108) Arterial Blood HCO3 36 mmol/L (21-28) 35 mmol/L (21-28) Arterial Blood Base Excess 10 mmol/L (-3-3) 8 mmol/L (-3-3) FiO2 100 50 Test 07/16/21 18:54 07/17/21 04:55 07/17/21 07:35 Troponin I High Sensitivity 95 ng/L (4-50) White Blood Count 6.6 x10^3/uL (4.0-11.0) Red Blood Count 3.23 x10^6/uL (3.50-5.40) Hemoglobin 9.6 g/dL (12.0-15.5) Hematocrit 30.0 % (36.0-47.0) Mean Corpuscular Volume 93 fL (79-100) Mean Corpuscular Hemoglobin 30 pg (25-35) Mean Corpuscular Hemoglobin Concent 32 g/dL (31-37) Red Cell Distribution Width 14.9 % (11.5-14.5) Platelet Count 216 x10^3/uL (140-400) Neutrophils (%) (Auto) 75 % (31-73) Lymphocytes (%) (Auto) 12 % (24-48) Monocytes (%) (Auto) 10 % (0-9) Eosinophils (%) (Auto) 2 % (0-3) Basophils (%) (Auto) 0 % (0-3) Neutrophils # (Auto) 5.0 x10^3/uL (1.8-7.7) Lymphocytes # (Auto) 0.8 x10^3/uL (1.0-4.8) Monocytes # (Auto) 0.7 x10^3/uL (0.0-1.1) Eosinophils # (Auto) 0.2 x10^3/uL (0.0-0.7) Basophils # (Auto) 0.0 x10^3/uL (0.0-0.2) Sodium Level 140 mmol/L (136-145) Potassium Level 5.0 mmol/L (3.5-5.1) Chloride Level 101 mmol/L (98-107) Carbon Dioxide Level 34 mmol/L (21-32) Anion Gap 5 (6-14) Blood Urea Nitrogen 18 mg/dL (7-20) Creatinine 0.8 mg/dL (0.6-1.0) Estimated GFR (Cockcroft-Gault) 67.7 BUN/Creatinine Ratio 23 (6-20) Glucose Level 71 mg/dL (70-99) Calcium Level 8.9 mg/dL (8.5-10.1) Phosphorus Level 1.8 mg/dL (2.6-4.7) Magnesium Level 2.2 mg/dL (1.8-2.4) Total Bilirubin 0.4 mg/dL (0.2-1.0) Aspartate Amino Transf (AST/SGOT) 20 U/L (15-37) Alanine Aminotransferase (ALT/SGPT) 18 U/L (14-59) Alkaline Phosphatase 55 U/L (46-116) C-Reactive Protein, Quantitative 13.6 mg/L (0-3.3) Total Protein 5.6 g/dL (6.4-8.2) Albumin 2.4 g/dL (3.4-5.0) Albumin/Globulin Ratio 0.8 (1.0-1.7) O2 Saturation 98 % (92-99) Arterial Blood pH 7.56 (7.35-7.45) Arterial Blood pCO2 at Patient Temp 39 mmHg (35-46) Arterial Blood pO2 at Patient Temp 96 mmHg (65-108) Arterial Blood HCO3 34 mmol/L (21-28) Arterial Blood Base Excess 11 mmol/L (-3-3) FiO2 [address] STROKE HEAD W/O History: Altered mental status. Stroke. Comparison: None. Technique: Noncontrast CT imaging was performed of the head. Findings: No intracranial hemorrhage. No mass effect. No hydrocephalus. No evidence of acute territorial infarction. Mild hypodensity the periventricular and deep white matter consistent with chronic microvascular ischemic change. Imaged orbits are unremarkable. Imaged paranasal sinuses and mastoid air cells are clear. The scalp and calvarium are unremarkable. Impression: 1. No acute intracranial abnormality. CTA HEAD AND NECK W/WO CONTRAST Clinical Indication: Reason: AMS Comparison: CT head without contrast, earlier same day. Technique: Helical CT imaging from inferior to the aortic arch to the skull vertex is performed after 75 cc of Omnipaque [address] angiogram protocol. 3-D MIP reconstructions of the cervical carotid arteries and osage of Cha are performed. PQRS Compliance Statement - Stenosis calculations for CT, MR and conventional angiography are based upon measurement of the distal ICA diameter in accordance with the NASCET methodology. Stenosis calculations for carotid ultrasound studies are derived from validated velocity criteria which are known to correlate with the NASCET methodology. Findings: Aortic arch incompletely imaged. The skull vertex is incompletely imaged. The common carotid arteries, carotid bifurcations, and the cervical internal carotid arteries are patent. The cervical vertebral arteries are patent. The left vertebral artery is dominant. The posterior circulation is intact. The distal internal carotid arteries are patent. Anterior circulation is intact. No intracranial aneurysm or significant stenosis is identified. The visualized dural venous sinuses are unremarkable. There is no abnormal enhancement in the brain parenchyma. Endotracheal and enteric tubes are partially seen. There is moderate upper lobe centrilobular emphysema. There are retained secretions or mucous in the trachea. Moderate mucosal thickening of the bilateral ethmoid sinuses. There is degenerative spondylosis of the cervical spine. There is grade 1 anterolisthesis of C2 on C3, C4 on C5, C7 on T1, and T1 on T2. IMPRESSION: 1. No large vessel occlusion. 2. No significant stenosis of the cervical carotid or vertebral arteries. Assessment/Plan Assessment/Plan Impression: My best explanation is that she had a respiratory event in the x-ray room, although a seizure is possible. There is no evidence that she had a stroke. Recommendations: Treat the respiratory failure and other medical issues No need for additional neurological studies such as MRI of the brain I discussed with patient's son. He says that there is a DNR already established on the patient, but he wants to talk over with the rest of the family about making her a DNR in the hospital Thank you for letting me help with the patient's care. HUSSAIN HOBSON MD Jul 17, 2021 13:42
--- NOTE | 2021-07-17 16:37 | NUR ---
SS following for discharge planning. SS reviewed pt chart and discussed with pt RN. Pt is from home and is currently on the vent at 40%. Neurology and Pulmonology following. Pt on IV Zosyn. Pt on Propofol and Fentanyl. SS will continue to follow for discharge planning.
--- NOTE | 2021-07-17 17:31 | NUR ---
NS infusing at 75 ml/hr throughout shift; urine output low.
[2021-07-17] MEDS: ENOXAPARIN 40 MG/0.4 ML SYRINGE. SQ SCH (20:55)
[2021-07-18] VITALS (27 sets, daily range): BP systolic 82–165; BP diastolic 45–87
[2021-07-18] MEDS: PIPERACILLIN/TAZOBACTAM 2.25 GM in IV NORMAL SALINE 50ML 50 ML IV SCH ×4 (00:53→19:42)
[2021-07-18 06:36] LABS: BASO % 1 % (0-3); EOS # 0.3 x10^3/uL (0.0-0.7); EOS % 5 % (0-3); HEMATOCRIT 28.7 % (36.0-47.0); HEMOGLOBIN 9.1 g/dL (12.0-15.5); LYMPH # 0.8 x10^3/uL (1.0-4.8); LYMPH % 14 % (24-48); MEAN CORPUSCULAR HEMOGLOBIN 29 pg (25-35); MEAN CORPUSCULAR HGB CONC 32 g/dL (31-37); MEAN CORPUSCULAR VOLUME 92 fL (79-100); MONO # 0.5 x10^3/uL (0.0-1.1); MONO % 8 % (0-9); NEUT % 72 % (31-73); PLATELET COUNT 203 x10^3/uL (140-400); RED BLOOD COUNT 3.12 x10^6/uL (3.50-5.40); RED CELL DISTRIBUTION WIDTH 15.6 % (11.5-14.5); WHITE BLOOD COUNT 5.6 x10^3/uL (4.0-11.0)
[2021-07-18 06:55] LABS: CALCIUM 8.5 mg/dL (8.5-10.1); CREATININE 0.9 mg/dL (0.6-1.0); GFR 59.1; MAGNESIUM 2.1 mg/dL (1.8-2.4); POTASSIUM 4.5 mmol/L (3.5-5.1)
--- NOTE | 2021-07-18 07:29 | PDOC ---
PULMONARY PROGRESS NOTES DATE: 07/18/21 TIME: 07:27 Subjective Remains intubated. She is currently on low-dose propofol. She does response to commands. Oxygenation is stable Vitals Vital Signs Date Time Temp Pulse Resp B/P (MAP) Pulse Ox O2 Delivery O2 Flow Rate FiO2 07/18/21 06:00 64 10 107/54 100 Ventilator 07/18/21 04:00 97.4 97.4 General: Alert, No acute distress Lungs: Clear Cardiovascular: S1 Extremities: No Edema Labs Laboratory Tests Test 07/16/21 15:39 07/16/21 15:45 07/16/21 16:35 07/16/21 17:20 Glucose (Fingerstick) 137 mg/dL (70-99) White Blood Count 6.3 x10^3/uL (4.0-11.0) Red Blood Count 3.68 x10^6/uL (3.50-5.40) Hemoglobin 10.6 g/dL (12.0-15.5) Hematocrit 34.5 % (36.0-47.0) Mean Corpuscular Volume 94 fL (79-100) Mean Corpuscular Hemoglobin 29 pg (25-35) Mean Corpuscular Hemoglobin Concent 31 g/dL (31-37) Red Cell Distribution Width 15.4 % (11.5-14.5) Platelet Count 262 x10^3/uL (140-400) Neutrophils (%) (Auto) 79 % (31-73) Lymphocytes (%) (Auto) 12 % (24-48) Monocytes (%) (Auto) 7 % (0-9) Eosinophils (%) (Auto) 2 % (0-3) Basophils (%) (Auto) 1 % (0-3) Neutrophils # (Auto) 5.0 x10^3/uL (1.8-7.7) Lymphocytes # (Auto) 0.8 x10^3/uL (1.0-4.8) Monocytes # (Auto) 0.4 x10^3/uL (0.0-1.1) Eosinophils # (Auto) 0.1 x10^3/uL (0.0-0.7) Basophils # (Auto) 0.1 x10^3/uL (0.0-0.2) Prothrombin Time 11.4 SEC (11.7-14.0) Prothromb Time International Ratio 0.9 (0.8-1.1) Activated Partial Thromboplast Time 27 SEC (24-38) Sodium Level 137 mmol/L (136-145) Potassium Level 5.2 mmol/L (3.5-5.1) Chloride Level 99 mmol/L (98-107) Carbon Dioxide Level 41 mmol/L (21-32) Anion Gap (6-14) Blood Urea Nitrogen 17 mg/dL (7-20) Creatinine 0.9 mg/dL (0.6-1.0) Estimated GFR (Cockcroft-Gault) 59.1 Glucose Level 132 mg/dL (70-99) Calcium Level 9.3 mg/dL (8.5-10.1) Troponin I High Sensitivity 106 ng/L (4-50) O2 Saturation 99 % (92-99) 99 % (92-99) Arterial Blood pH 7.46 (7.35-7.45) 7.40 (7.35-7.45) Arterial Blood pCO2 at Patient Temp 51 mmHg (35-46) 57 mmHg (35-46) Arterial Blood pO2 at Patient Temp 431 mmHg (65-108) 220 mmHg (65-108) Arterial Blood HCO3 36 mmol/L (21-28) 35 mmol/L (21-28) Arterial Blood Base Excess 10 mmol/L (-3-3) 8 mmol/L (-3-3) FiO2 100 50 Test 07/16/21 18:54 07/17/21 04:55 07/17/21 07:35 07/17/21 19:58 Troponin I High Sensitivity 95 ng/L (4-50) White Blood Count 6.6 x10^3/uL (4.0-11.0) Red Blood Count 3.23 x10^6/uL (3.50-5.40) Hemoglobin 9.6 g/dL (12.0-15.5) Hematocrit 30.0 % (36.0-47.0) Mean Corpuscular Volume 93 fL (79-100) Mean Corpuscular Hemoglobin 30 pg (25-35) Mean Corpuscular Hemoglobin Concent 32 g/dL (31-37) Red Cell Distribution Width 14.9 % (11.5-14.5) Platelet Count 216 x10^3/uL (140-400) Neutrophils (%) (Auto) 75 % (31-73) Lymphocytes (%) (Auto) 12 % (24-48) Monocytes (%) (Auto) 10 % (0-9) Eosinophils (%) (Auto) 2 % (0-3) Basophils (%) (Auto) 0 % (0-3) Neutrophils # (Auto) 5.0 x10^3/uL (1.8-7.7) Lymphocytes # (Auto) 0.8 x10^3/uL (1.0-4.8) Monocytes # (Auto) 0.7 x10^3/uL (0.0-1.1) Eosinophils # (Auto) 0.2 x10^3/uL (0.0-0.7) Basophils # (Auto) 0.0 x10^3/uL (0.0-0.2) Sodium Level 140 mmol/L (136-145) Potassium Level 5.0 mmol/L (3.5-5.1) Chloride Level 101 mmol/L (98-107) Carbon Dioxide Level 34 mmol/L (21-32) Anion Gap 5 (6-14) Blood Urea Nitrogen 18 mg/dL (7-20) Creatinine 0.8 mg/dL (0.6-1.0) Estimated GFR (Cockcroft-Gault) 67.7 BUN/Creatinine Ratio 23 (6-20) Glucose Level 71 mg/dL (70-99) Calcium Level 8.9 mg/dL (8.5-10.1) Phosphorus Level 1.8 mg/dL (2.6-4.7) Magnesium Level 2.2 mg/dL (1.8-2.4) Total Bilirubin 0.4 mg/dL (0.2-1.0) Aspartate Amino Transf (AST/SGOT) 20 U/L (15-37) Alanine Aminotransferase (ALT/SGPT) 18 U/L (14-59) Alkaline Phosphatase 55 U/L (46-116) C-Reactive Protein, Quantitative 13.6 mg/L (0-3.3) Total Protein 5.6 g/dL (6.4-8.2) Albumin 2.4 g/dL (3.4-5.0) Albumin/Globulin Ratio 0.8 (1.0-1.7) O2 Saturation 98 % (92-99) Arterial Blood pH 7.56 (7.35-7.45) Arterial Blood pCO2 at Patient Temp 39 mmHg (35-46) Arterial Blood pO2 at Patient Temp 96 mmHg (65-108) Arterial Blood HCO3 34 mmol/L (21-28) Arterial Blood Base Excess 11 mmol/L (-3-3) FiO2 40 Glucose (Fingerstick) 70 mg/dL (70-99) Test 07/18/21 06:20 White Blood Count 5.6 x10^3/uL (4.0-11.0) Red Blood Count 3.12 x10^6/uL (3.50-5.40) Hemoglobin 9.1 g/dL (12.0-15.5) Hematocrit 28.7 % (36.0-47.0) Mean Corpuscular Volume 92 fL (79-100) Mean Corpuscular Hemoglobin 29 pg (25-35) Mean Corpuscular Hemoglobin Concent 32 g/dL (31-37) Red Cell Distribution Width 15.6 % (11.5-14.5) Platelet Count 203 x10^3/uL (140-400) Neutrophils (%) (Auto) 72 % (31-73) Lymphocytes (%) (Auto) 14 % (24-48) Monocytes (%) (Auto) 8 % (0-9) Eosinophils (%) (Auto) 5 % (0-3) Basophils (%) (Auto) 1 % (0-3) Neutrophils # (Auto) 4.0 x10^3/uL (1.8-7.7) Lymphocytes # (Auto) 0.8 x10^3/uL (1.0-4.8) Monocytes # (Auto) 0.5 x10^3/uL (0.0-1.1) Eosinophils # (Auto) 0.3 x10^3/uL (0.0-0.7) Basophils # (Auto) 0.0 x10^3/uL (0.0-0.2) Sodium Level 140 mmol/L (136-145) Potassium Level 4.5 mmol/L (3.5-5.1) Chloride Level 104 mmol/L (98-107) Carbon Dioxide Level 33 mmol/L (21-32) Anion Gap 3 (6-14) Blood Urea Nitrogen 14 mg/dL (7-20) Creatinine 0.9 mg/dL (0.6-1.0) Estimated GFR (Cockcroft-Gault) 59.1 Glucose Level 65 mg/dL (70-99) Calcium Level 8.5 mg/dL (8.5-10.1) Magnesium Level 2.1 mg/dL (1.8-2.4) Laboratory Tests Test 07/17/21 07:35 07/17/21 19:58 07/18/21 06:20 O2 Saturation 98 % (92-99) Arterial Blood pH 7.56 (7.35-7.45) Arterial Blood pCO2 at Patient Temp 39 mmHg (35-46) Arterial Blood pO2 at Patient Temp 96 mmHg (65-108) Arterial Blood HCO3 34 mmol/L (21-28) Arterial Blood Base Excess 11 mmol/L (-3-3) FiO2 40 Glucose (Fingerstick) 70 mg/dL (70-99) White Blood Count 5.6 x10^3/uL (4.0-11.0) Red Blood Count 3.12 x10^6/uL (3.50-5.40) Hemoglobin 9.1 g/dL (12.0-15.5) Hematocrit 28.7 % (36.0-47.0) Mean Corpuscular Volume 92 fL (79-100) Mean Corpuscular Hemoglobin 29 pg (25-35) Mean Corpuscular Hemoglobin Concent 32 g/dL (31-37) Red Cell Distribution Width 15.6 % (11.5-14.5) Platelet Count 203 x10^3/uL (140-400) Neutrophils (%) (Auto) 72 % (31-73) Lymphocytes (%) (Auto) 14 % (24-48) Monocytes (%) (Auto) 8 % (0-9) Eosinophils (%) (Auto) 5 % (0-3) Basophils (%) (Auto) 1 % (0-3) Neutrophils # (Auto) 4.0 x10^3/uL (1.8-7.7) Lymphocytes # (Auto) 0.8 x10^3/uL (1.0-4.8) Monocytes # (Auto) 0.5 x10^3/uL (0.0-1.1) Eosinophils # (Auto) 0.3 x10^3/uL (0.0-0.7) Basophils # (Auto) 0.0 x10^3/uL (0.0-0.2) Sodium Level 140 mmol/L (136-145) Potassium Level 4.5 mmol/L (3.5-5.1) Chloride Level 104 mmol/L (98-107) Carbon Dioxide Level 33 mmol/L (21-32) Anion Gap 3 (6-14) Blood Urea Nitrogen 14 mg/dL (7-20) Creatinine 0.9 mg/dL (0.6-1.0) Estimated GFR (Cockcroft-Gault) 59.1 Glucose Level 65 mg/dL (70-99) Calcium Level 8.5 mg/dL (8.5-10.1) Magnesium Level 2.1 mg/dL (1.8-2.4) Medications Active Scripts Medications Dose Route/Sig Max Daily Dose Days Date Category Duoneb 0.5-3(2.5) Mg/3 Ml (Albuterol/Ipratropium) 3 Ml Ampul.neb 3 Ml NEB Q6HRS 07/16/21 Reported Vitamin C (Ascorbic Acid) 500 Mg Tablet 1,000 Mg PO DAILY 30 06/26/21 Rx Comments Chest x-ray reviewed 07/18/2021. No pneumothorax seen. Vascular markings improved. Impression . 1. Acute respiratory failure secondary to acute encephalopathy. Etiology not so obvious. She had a CT angiogram and there was no significant large vessel occlusion. No significant stenosis of the cervical, carotid or vertebral arteries. Mental status improved. 2. Abnormal chest x-ray with slightly prominent interstitial markings and a skin fold. No definite pneumothorax. Repeat chest x-ray stable with no evidence of pneumothorax 3. Moderate to severe protein-calorie malnutrition. Plan . RECOMMENDATIONS: 1. Patient is clinically improved. She is following commands. Will discontinue propofol. Once more awake we will proceed with CPAP trial. Likely extubation today 2. Enteral nutrition. 3. DVT prophylaxis with Lovenox. 4. Obtain echocardiogram. 5. Avoid any benzos. 6. Discussed with NI HAWLEY MD Jul 18, 2021 07:29
[2021-07-18] MEDS: PANTOPRAZOLE IV PUSH 40 MG VIAL. IVP SCH (07:30)
[2021-07-18] MEDS: IPRATRPIUM/ALBUTEROL 0.5/2.5MG 3 ML NEBU. NEB SCH ×3 (08:17→20:52)
--- NOTE | 2021-07-18 08:27 | RAD ---
XR CHEST 1V INDICATION: CHF COMPARISON STUDY: 07/16/2021. FINDINGS: Life Support Devices: Stable endotracheal tube, enteric tube. Lungs: Normal lung volume. Increasing left basilar opacities. Pleura: Small left pleural effusion. Heart and Mediastinum: Stable cardiomediastinal silhouette and great vessels. IMPRESSION: 1. Increasing left basilar opacities. 2. Small left pleural effusion. Electronically signed by: Conner Kern MD (07/18/2021 8:24 AM) [id number]
--- NOTE | 2021-07-18 09:14 | NUR ---
0715 Dr Quarles in w order changes. Sed meds off for am trial . Appropriate response with commands. Trial start @ 0830 w ABGs pending. Calm thru change .VSS stable ( 125-138/75-78),able to pull volumes from 350-425,w sats maintained 100%. ABG reported to MD Jama
[2021-07-18 09:26] LABS: BASE EXCESS ABG 4 mmol/L (-3-3); HCO3 ABG 30 mmol/L (21-28); PCO2 ABG 49 mmHg (35-46); PO2 ABG 99 mmHg (65-108); SAT O2 ABG 98 % (92-99)
[2021-07-18 09:30] LABS: FIO2 ABG 40
--- NOTE | 2021-07-18 10:40 | PDOC ---
PROGRESS NOTES Date of Service DATE: 07/18/21 TIME: 10:39 Assessment Problems Medical Problems: (1) AMS (altered mental status) Status: Acute (2) Respiratory failure Status: Acute My best explanation is that she had a respiratory event in the x-ray room, although a seizure is possible. There is no evidence that she had a stroke. Plan Treat the respiratory failure and other medical issues No need for additional neurological studies such as MRI of the brain Son was supposed to let nursing know if we should activate her out of hospital DNR Subjective None Objective Vital Signs Date Time Temp Pulse Resp B/P (MAP) Pulse Ox O2 Delivery O2 Flow Rate FiO2 07/18/21 10:00 Nasal Cannula 07/18/21 09:45 4.0 07/18/21 09:45 16 07/18/21 09:00 100 07/18/21 07:00 97.0 97.0 07/18/21 06:00 64 Intake and Output 07/18/21 07:00 Intake Total 223.41 ml Output Total 570 ml Balance -346.59 ml Intake IV Total 223.41 ml Output Urine Total 570 ml PHYSICAL EXAM Intubated, minimal sedation, follows commands PERRL. EOMI. CN: no focal findings. Muscle tone: normal. Muscle strength: 4/5 DTR: 1+ Plantar reflex: Flexor Gait: not examined in bed. Sensory exam: no abnormal findings. No cerebellar signs elicited. Review of Relevant I have reviewed the following items chun (where applicable) has been applied. Labs Laboratory Tests Test 07/16/21 15:39 07/16/21 15:45 07/16/21 16:35 07/16/21 17:20 Glucose (Fingerstick) 137 mg/dL (70-99) White Blood Count 6.3 x10^3/uL (4.0-11.0) Red Blood Count 3.68 x10^6/uL (3.50-5.40) Hemoglobin 10.6 g/dL (12.0-15.5) Hematocrit 34.5 % (36.0-47.0) Mean Corpuscular Volume 94 fL (79-100) Mean Corpuscular Hemoglobin 29 pg (25-35) Mean Corpuscular Hemoglobin Concent 31 g/dL (31-37) Red Cell Distribution Width 15.4 % (11.5-14.5) Platelet Count 262 x10^3/uL (140-400) Neutrophils (%) (Auto) 79 % (31-73) Lymphocytes (%) (Auto) 12 % (24-48) Monocytes (%) (Auto) 7 % (0-9) Eosinophils (%) (Auto) 2 % (0-3) Basophils (%) (Auto) 1 % (0-3) Neutrophils # (Auto) 5.0 x10^3/uL (1.8-7.7) Lymphocytes # (Auto) 0.8 x10^3/uL (1.0-4.8) Monocytes # (Auto) 0.4 x10^3/uL (0.0-1.1) Eosinophils # (Auto) 0.1 x10^3/uL (0.0-0.7) Basophils # (Auto) 0.1 x10^3/uL (0.0-0.2) Prothrombin Time 11.4 SEC (11.7-14.0) Prothromb Time International Ratio 0.9 (0.8-1.1) Activated Partial Thromboplast Time 27 SEC (24-38) Sodium Level 137 mmol/L (136-145) Potassium Level 5.2 mmol/L (3.5-5.1) Chloride Level 99 mmol/L (98-107) Carbon Dioxide Level 41 mmol/L (21-32) Anion Gap (6-14) Blood Urea Nitrogen 17 mg/dL (7-20) Creatinine 0.9 mg/dL (0.6-1.0) Estimated GFR (Cockcroft-Gault) 59.1 Glucose Level 132 mg/dL (70-99) Calcium Level 9.3 mg/dL (8.5-10.1) Troponin I High Sensitivity 106 ng/L (4-50) O2 Saturation 99 % (92-99) 99 % (92-99) Arterial Blood pH 7.46 (7.35-7.45) 7.40 (7.35-7.45) Arterial Blood pCO2 at Patient Temp 51 mmHg (35-46) 57 mmHg (35-46) Arterial Blood pO2 at Patient Temp 431 mmHg (65-108) 220 mmHg (65-108) Arterial Blood HCO3 36 mmol/L (21-28) 35 mmol/L (21-28) Arterial Blood Base Excess 10 mmol/L (-3-3) 8 mmol/L (-3-3) FiO2 100 50 Test 07/16/21 18:54 07/17/21 04:55 07/17/21 07:35 07/17/21 19:58 Troponin I High Sensitivity 95 ng/L (4-50) White Blood Count 6.6 x10^3/uL (4.0-11.0) Red Blood Count 3.23 x10^6/uL (3.50-5.40) Hemoglobin 9.6 g/dL (12.0-15.5) Hematocrit 30.0 % (36.0-47.0) Mean Corpuscular Volume 93 fL (79-100) Mean Corpuscular Hemoglobin 30 pg (25-35) Mean Corpuscular Hemoglobin Concent 32 g/dL (31-37) Red Cell Distribution Width 14.9 % (11.5-14.5) Platelet Count 216 x10^3/uL (140-400) Neutrophils (%) (Auto) 75 % (31-73) Lymphocytes (%) (Auto) 12 % (24-48) Monocytes (%) (Auto) 10 % (0-9) Eosinophils (%) (Auto) 2 % (0-3) Basophils (%) (Auto) 0 % (0-3) Neutrophils # (Auto) 5.0 x10^3/uL (1.8-7.7) Lymphocytes # (Auto) 0.8 x10^3/uL (1.0-4.8) Monocytes # (Auto) 0.7 x10^3/uL (0.0-1.1) Eosinophils # (Auto) 0.2 x10^3/uL (0.0-0.7) Basophils # (Auto) 0.0 x10^3/uL (0.0-0.2) Sodium Level 140 mmol/L (136-145) Potassium Level 5.0 mmol/L (3.5-5.1) Chloride Level 101 mmol/L (98-107) Carbon Dioxide Level 34 mmol/L (21-32) Anion Gap 5 (6-14) Blood Urea Nitrogen 18 mg/dL (7-20) Creatinine 0.8 mg/dL (0.6-1.0) Estimated GFR (Cockcroft-Gault) 67.7 BUN/Creatinine Ratio 23 (6-20) Glucose Level 71 mg/dL (70-99) Calcium Level 8.9 mg/dL (8.5-10.1) Phosphorus Level 1.8 mg/dL (2.6-4.7) Magnesium Level 2.2 mg/dL (1.8-2.4) Total Bilirubin 0.4 mg/dL (0.2-1.0) Aspartate Amino Transf (AST/SGOT) 20 U/L (15-37) Alanine Aminotransferase (ALT/SGPT) 18 U/L (14-59) Alkaline Phosphatase 55 U/L (46-116) C-Reactive Protein, Quantitative 13.6 mg/L (0-3.3) Total Protein 5.6 g/dL (6.4-8.2) Albumin 2.4 g/dL (3.4-5.0) Albumin/Globulin Ratio 0.8 (1.0-1.7) O2 Saturation 98 % (92-99) Arterial Blood pH 7.56 (7.35-7.45) Arterial Blood pCO2 at Patient Temp 39 mmHg (35-46) Arterial Blood pO2 at Patient Temp 96 mmHg (65-108) Arterial Blood HCO3 34 mmol/L (21-28) Arterial Blood Base Excess 11 mmol/L (-3-3) FiO2 40 Glucose (Fingerstick) 70 mg/dL (70-99) Test 07/18/21 06:20 07/18/21 09:15 White Blood Count 5.6 x10^3/uL (4.0-11.0) Red Blood Count 3.12 x10^6/uL (3.50-5.40) Hemoglobin 9.1 g/dL (12.0-15.5) Hematocrit 28.7 % (36.0-47.0) Mean Corpuscular Volume 92 fL (79-100) Mean Corpuscular Hemoglobin 29 pg (25-35) Mean Corpuscular Hemoglobin Concent 32 g/dL (31-37) Red Cell Distribution Width 15.6 % (11.5-14.5) Platelet Count 203 x10^3/uL (140-400) Neutrophils (%) (Auto) 72 % (31-73) Lymphocytes (%) (Auto) 14 % (24-48) Monocytes (%) (Auto) 8 % (0-9) Eosinophils (%) (Auto) 5 % (0-3) Basophils (%) (Auto) 1 % (0-3) Neutrophils # (Auto) 4.0 x10^3/uL (1.8-7.7) Lymphocytes # (Auto) 0.8 x10^3/uL (1.0-4.8) Monocytes # (Auto) 0.5 x10^3/uL (0.0-1.1) Eosinophils # (Auto) 0.3 x10^3/uL (0.0-0.7) Basophils # (Auto) 0.0 x10^3/uL (0.0-0.2) Sodium Level 140 mmol/L (136-145) Potassium Level 4.5 mmol/L (3.5-5.1) Chloride Level 104 mmol/L (98-107) Carbon Dioxide Level 33 mmol/L (21-32) Anion Gap 3 (6-14) Blood Urea Nitrogen 14 mg/dL (7-20) Creatinine 0.9 mg/dL (0.6-1.0) Estimated GFR (Cockcroft-Gault) 59.1 Glucose Level 65 mg/dL (70-99) Calcium Level 8.5 mg/dL (8.5-10.1) Magnesium Level 2.1 mg/dL (1.8-2.4) O2 Saturation 98 % (92-99) Arterial Blood pH 7.40 (7.35-7.45) Arterial Blood pCO2 at Patient Temp 49 mmHg (35-46) Arterial Blood pO2 at Patient Temp 99 mmHg (65-108) Arterial Blood HCO3 30 mmol/L (21-28) Arterial Blood Base Excess 4 mmol/L (-3-3) FiO2 40 Laboratory Tests Test 07/17/21 19:58 07/18/21 06:20 07/18/21 09:15 Glucose (Fingerstick) 70 mg/dL (70-99) White Blood Count 5.6 x10^3/uL (4.0-11.0) Red Blood Count 3.12 x10^6/uL (3.50-5.40) Hemoglobin 9.1 g/dL (12.0-15.5) Hematocrit 28.7 % (36.0-47.0) Mean Corpuscular Volume 92 fL (79-100) Mean Corpuscular Hemoglobin 29 pg (25-35) Mean Corpuscular Hemoglobin Concent 32 g/dL (31-37) Red Cell Distribution Width 15.6 % (11.5-14.5) Platelet Count 203 x10^3/uL (140-400) Neutrophils (%) (Auto) 72 % (31-73) Lymphocytes (%) (Auto) 14 % (24-48) Monocytes (%) (Auto) 8 % (0-9) Eosinophils (%) (Auto) 5 % (0-3) Basophils (%) (Auto) 1 % (0-3) Neutrophils # (Auto) 4.0 x10^3/uL (1.8-7.7) Lymphocytes # (Auto) 0.8 x10^3/uL (1.0-4.8) Monocytes # (Auto) 0.5 x10^3/uL (0.0-1.1) Eosinophils # (Auto) 0.3 x10^3/uL (0.0-0.7) Basophils # (Auto) 0.0 x10^3/uL (0.0-0.2) Sodium Level 140 mmol/L (136-145) Potassium Level 4.5 mmol/L (3.5-5.1) Chloride Level 104 mmol/L (98-107) Carbon Dioxide Level 33 mmol/L (21-32) Anion Gap 3 (6-14) Blood Urea Nitrogen 14 mg/dL (7-20) Creatinine 0.9 mg/dL (0.6-1.0) Estimated GFR (Cockcroft-Gault) 59.1 Glucose Level 65 mg/dL (70-99) Calcium Level 8.5 mg/dL (8.5-10.1) Magnesium Level 2.1 mg/dL (1.8-2.4) O2 Saturation 98 % (92-99) Arterial Blood pH 7.40 (7.35-7.45) Arterial Blood pCO2 at Patient Temp 49 mmHg (35-46) Arterial Blood pO2 at Patient Temp 99 mmHg (65-108) Arterial Blood HCO3 30 mmol/L (21-28) Arterial Blood Base Excess 4 mmol/L (-3-3) FiO2 40 Medications Current Medications Rocuronium [place] (Zemuron) 50 mg 1X ONCE IV Last administered on 07/16/21at 18:33; Start 07/16/21 at 16:00; Stop 07/16/21 at 16:03; Status DC Etomidate (Amidate) 18 mg 1X ONCE IV Last administered on 07/16/21at 18:32; Start 07/16/21 at 16:00; Stop 07/16/21 at 16:03; Status DC Fentanyl Citrate (Fentanyl 2ml Vial) 50 mcg 1X ONCE IVP ; Start 07/16/21 at 16:00; Stop 07/16/21 at 16:03; Status DC Propofol 100 ml @ 1.68 mls/hr CONT PRN IV PER PROTOCOL Last administered on 07/17/21at 07:42; Start 07/16/21 at 16:00 Iohexol (Omnipaque 350 Mg/ml) 75 ml 1X ONCE IV Last administered on 07/16/21at 17:15; Start 07/16/21 at 17:15; Stop 07/16/21 at 17:16; Status DC Fentanyl Citrate (Fentanyl 2ml Vial) 100 mcg 1X ONCE IVP ; Start 07/16/21 at 18:45; Stop 07/16/21 at 18:46; Status DC Fentanyl Citrate 30 ml @ 0 mls/hr CONT PRN IV SEE PROTOCOL; Start 07/16/21 at 18:45; Status Cancel Ketamine HCl (Ketamine) 50 mg STK-MED ONCE .ROUTE ; Start 07/16/21 at 19:16; Stop 07/16/21 at 19:16; Status DC Fentanyl Citrate 30 ml @ 0 mls/hr CONT PRN IV SEE PROTOCOL Last administered on 07/17/21at 20:00; Start 07/16/21 at 19:44 Ketamine HCl (Ketamine) 65 mg 1X ONCE IV Last administered on 07/16/21at 19:25; Start 07/16/21 at 20:00; Stop 07/16/21 at 20:01; Status DC Sennosides (Senna) 17.2 mg PRN BID PRN PO CONSTIPATION; Start 07/16/21 at 20:30 Docusate Sodium (Colace) 100 mg PRN DAILY PRN PO HARD STOOLS; Start 07/16/21 at 20:30 Ondansetron HCl (Zofran) 4 mg PRN Q6HRS PRN IVP NAUSEA/VOMITING, 1st CHOICE; Start 07/16/21 at 20:30 Dextrose (Dextrose 50%-Water Syringe) 12.5 gm PRN Q15MIN PRN IV SEE COMMENTS; Start 07/16/21 at 20:30 Acetaminophen (Tylenol) 650 mg PRN Q4HRS PRN PO TEMP OVER 100.4F OR MILD PAIN; Start 07/16/21 at 20:30 Lorazepam (Ativan) 0.5 mg PRN Q6HRS PRN PO ANXIETY / AGITATION; Start 07/16/21 at 20:30 Lorazepam (Ativan Inj) 0.25 mg PRN Q4HRS PRN IV ANXIETY / AGITATION; Start 07/16/21 at 20:30 Prochlorperazine Edisylate (Compazine) 10 mg PRN Q6HRS PRN IV NAUSEA/VOMITING, 2nd CHOICE; Start 07/16/21 at 20:30 Diphenhydramine HCl (Benadryl) 25 mg PRN Q6HRS PRN IVP ITCHING; Start 07/16/21 at 20:30 Diphenhydramine HCl (Benadryl) 25 mg PRN Q6HRS PRN PO ITCHING; Start 07/16/21 at 20:30 Diphenhydramine HCl (Benadryl) 25 mg PRN QHS PRN PO INSOMNIA, 1st CHOICE; Start 07/16/21 at 20:30 Zolpidem Tartrate (Ambien) 2.5 mg PRN QHS PRN PO INSOMNIA, 2nd CHOICE; Start 07/16/21 at 20:30 Enoxaparin Sodium (Lovenox 40mg Syringe) 40 mg Q24H SQ Last administered on 07/17/21at 20:55; Start 07/16/21 at 21:00 Pantoprazole Sodium (PROTONIX VIAL for IV PUSH) 40 mg DAILYAC IVP Last administered on 07/17/21at 07:57; Start 07/17/21 at 07:30 Piperacillin Sod/ Tazobactam Sod (Zosyn Per Pharmacy) 1 each PRN DAILY PRN MC SEE COMMENTS; Start 07/17/21 at 11:45 Albuterol/ Ipratropium (Duoneb) 3 ml Q6HRS NEB Last administered on 07/18/21at 08:17; Start 07/17/21 at 12:00 Piperacillin Sod/ Tazobactam Sod 2.25 gm/Sodium Chloride 50 ml @ 100 mls/hr Q6HRS IV Last administered on 07/18/21at 06:17; Start 07/17/21 at 12:00 Active Scripts Active Vitamin C (Ascorbic Acid) 500 Mg Tablet 1,000 Mg PO DAILY 30 Days Reported Duoneb 0.5-3(2.5) Mg/3 Ml (Albuterol/Ipratropium) 3 Ml Ampul.neb 3 Ml NEB Q6HRS Vitals/I & O Vital Sign - Last 24 Hours 07/17/21 07/17/21 07/17/21 07/17/21 11:00 11:59 12:00 13:00 Temp 98.8 98.8 Pulse 64 66 64 Resp 10 10 10 B/P (MAP) 128/70 143/74 125/60 Pulse Ox 100 100 100 100 O2 Delivery Ventilator Ventilator Ventilator Ventilator 07/17/21 07/17/21 07/17/21 07/17/21 13:47 14:00 15:00 15:33 Pulse 66 70 Resp 10 10 B/P (MAP) 104/49 104/54 Pulse Ox 99 100 100 100 O2 Delivery Ventilator Ventilator Ventilator Ventilator 07/17/21 07/17/21 07/17/21 07/17/21 16:00 17:00 17:56 18:00 Temp 97.4 97.4 Pulse 96 67 67 Resp 10 10 10 B/P (MAP) 114/84 122/82 122/82 Pulse Ox 100 100 100 100 O2 Delivery Ventilator Ventilator Ventilator Ventilator 07/17/21 07/17/21 07/17/21 07/17/21 19:00 20:00 21:00 21:30 Temp 98.5 98.5 Pulse 59 68 64 Resp 10 10 10 B/P (MAP) 122/70 119/57 124/63 Pulse Ox 100 100 100 100 O2 Delivery Ventilator Ventilator Ventilator Ventilator 07/17/21 07/17/21 07/18/21 07/18/21 22:00 23:00 00:00 00:00 Temp 97.7 97.7 Pulse 67 56 56 Resp 10 10 10 B/P (MAP) 118/66 97/55 111/52 Pulse Ox 100 100 100 100 O2 Delivery Ventilator Ventilator Ventilator Ventilator 07/18/21 07/18/21 07/18/21 07/18/21 01:00 02:00 03:00 03:00 Pulse 62 54 58 Resp 10 10 10 B/P (MAP) 101/54 100/50 90/49 Pulse Ox 100 100 100 100 O2 Delivery Ventilator Ventilator Ventilator Ventilator 07/18/21 07/18/21 07/18/21 07/18/21 04:00 05:00 05:00 06:00 Temp 97.4 97.4 Pulse 58 58 64 Resp 10 10 10 B/P (MAP) 82/45 91/51 107/54 Pulse Ox 100 100 100 100 O2 Delivery Ventilator Ventilator Ventilator Ventilator 07/18/21 07/18/21 07/18/21 07/18/21 07:00 07:30 08:00 08:07 Temp 97.0 97.0 Resp 10 10 10 B/P (MAP) 95/51 125/58 128/80 Pulse Ox 100 100 100 100 O2 Delivery Ventilator Ventilator Ventilator Ventilator 07/18/21 07/18/21 07/18/21 07/18/21 08:30 08:30 09:00 09:15 Resp 12 16 17 B/P (MAP) 149/73 138/75 Pulse Ox 100 100 O2 Delivery Ventilator Ventilator Ventilator Ventilator 07/18/21 07/18/21 07/18/21 07/18/21 09:30 09:30 09:45 09:45 Resp 19 13 16 B/P (MAP) 146/73 133/65 O2 Delivery Nasal Cannula Nasal Cannula Nasal Cannula Nasal Cannula O2 Flow Rate 4.0 07/18/21 10:00 B/P (MAP) O2 Delivery Nasal Cannula Intake and Output 07/17/21 07/17/21 07/18/21 15:00 23:00 07:00 Intake Total 109.41 ml 114.0 ml Output Total 140 ml 245 ml 185 ml Balance -140 ml -135.59 ml -71.0 ml Justicifation of Admission Dx: Justifications for Admission: Justification of Admission Dx: N/A HUSSAIN HOBSON MD Jul 18, 2021 10:40
--- NOTE | 2021-07-18 12:01 | PDOC ---
[employer] PROGRESS NOTE Date of Service DOS: DATE: 07/18/21 TIME: 11:59 Chief Complaint Chief Complaint Acute respiratory failure with hypoxia Aspiration pneumonia HAP - gram-negative or gram-positive organism AMS History COPD History of Present Illness History of Present Illness 07/18: Afebrile. Extubated today, currently breathing on 4 L nasal cannula. Repeat CXR today shows increasing left basilar opacities; will continue Zosyn. Discussed with patient daughter by phone (DPOA), who states that patient would not want to be alive on a ventilator or have chest compressions performed again. Patient is a DNR going forward. Critical care time 30 minutes spent reviewing charts, reviewing labs, reviewing imaging, and discussion with RN. Vitals/I&O Vitals/I&O: Vital Signs Date Time Temp Pulse Resp B/P (MAP) Pulse Ox O2 Delivery O2 Flow Rate FiO2 07/18/21 11:53 98 Nasal Cannula 4.0 07/18/21 10:00 07/18/21 09:45 16 07/18/21 07:00 97.0 97.0 07/18/21 06:00 64 I & O 07/17/21 07/17/21 07/18/21 15:00 23:00 07:00 Intake Total 109.41 ml 114.0 ml Output Total 140 ml 245 ml 205 ml Balance -140 ml -135.59 ml -91.0 ml Physical Exam General: Alert, No acute distress Heart: Regular rate Lungs: Clear Abdomen: Soft Extremities: No cyanosis Skin: No rashes Labs Labs: Laboratory Tests Test 07/17/21 19:58 07/18/21 06:20 07/18/21 09:15 Glucose (Fingerstick) 70 mg/dL (70-99) White Blood Count 5.6 x10^3/uL (4.0-11.0) Red Blood Count 3.12 x10^6/uL (3.50-5.40) Hemoglobin 9.1 g/dL (12.0-15.5) Hematocrit 28.7 % (36.0-47.0) Mean Corpuscular Volume 92 fL (79-100) Mean Corpuscular Hemoglobin 29 pg (25-35) Mean Corpuscular Hemoglobin Concent 32 g/dL (31-37) Red Cell Distribution Width 15.6 % (11.5-14.5) Platelet Count 203 x10^3/uL (140-400) Neutrophils (%) (Auto) 72 % (31-73) Lymphocytes (%) (Auto) 14 % (24-48) Monocytes (%) (Auto) 8 % (0-9) Eosinophils (%) (Auto) 5 % (0-3) Basophils (%) (Auto) 1 % (0-3) Neutrophils # (Auto) 4.0 x10^3/uL (1.8-7.7) Lymphocytes # (Auto) 0.8 x10^3/uL (1.0-4.8) Monocytes # (Auto) 0.5 x10^3/uL (0.0-1.1) Eosinophils # (Auto) 0.3 x10^3/uL (0.0-0.7) Basophils # (Auto) 0.0 x10^3/uL (0.0-0.2) Sodium Level 140 mmol/L (136-145) Potassium Level 4.5 mmol/L (3.5-5.1) Chloride Level 104 mmol/L (98-107) Carbon Dioxide Level 33 mmol/L (21-32) Anion Gap 3 (6-14) Blood Urea Nitrogen 14 mg/dL (7-20) Creatinine 0.9 mg/dL (0.6-1.0) Estimated GFR (Cockcroft-Gault) 59.1 Glucose Level 65 mg/dL (70-99) Calcium Level 8.5 mg/dL (8.5-10.1) Magnesium Level 2.1 mg/dL (1.8-2.4) O2 Saturation 98 % (92-99) Arterial Blood pH 7.40 (7.35-7.45) Arterial Blood pCO2 at Patient Temp 49 mmHg (35-46) Arterial Blood pO2 at Patient Temp 99 mmHg (65-108) Arterial Blood HCO3 30 mmol/L (21-28) Arterial Blood Base Excess 4 mmol/L (-3-3) FiO2 40 Assessment and Plan Assessmemt and Plan Problems Medical Problems: (1) AMS (altered mental status) Status: Acute (2) Respiratory failure Status: Acute Comment Review of Relevant I have reviewed the following items chun (where applicable) has been applied. Medications: Current Medications Medications (Trade) Dose Ordered Sig/Nikkie Route PRN Reason Start Time Stop Time Status Last Admin Dose Admin Albuterol/ Ipratropium (Duoneb) 3 ml Q6HRS NEB 07/17/21 12:00 07/18/21 11:53 Piperacillin Sod/ Tazobactam Sod 2.25 gm/Sodium Chloride 50 ml @ 100 mls/hr Q6HRS IV 07/17/21 12:00 07/18/21 06:17 Justifications for Admission Other Justification Respiratory failure DOMINGO ROMERO MD Jul 18, 2021 12:01
--- NOTE | 2021-07-18 19:43 | NUR ---
0935 Extubated w O2 per NC -4L Continue to monitor closely. Able to doze at long iintervals with change from Bipap to 3LNC 183. Family in. Pt voice stronger/ understandable. Plans for family to met w Dr Buchanan "this weekend' Want to do it at this time but MD gone till AM. Informed of such so Pts sons will make plans for [facility]/ 1300. Information relayed to next shift for communication and need for accuracy of time. Cont POC
[2021-07-18] MEDS: ENOXAPARIN 40 MG/0.4 ML SYRINGE. SQ SCH (21:11)
[2021-07-19] VITALS (24 sets, daily range): BP systolic 92–135; BP diastolic 46–81
[2021-07-19] MEDS: IPRATRPIUM/ALBUTEROL 0.5/2.5MG 3 ML NEBU. NEB SCH ×5 (00:05→20:11)
[2021-07-19] MEDS: PIPERACILLIN/TAZOBACTAM 2.25 GM in IV NORMAL SALINE 50ML 50 ML IV SCH ×4 (00:05→18:29)
[2021-07-19 05:07] LABS: BASO % 1 % (0-3); EOS # 0.1 x10^3/uL (0.0-0.7); EOS % 3 % (0-3); HEMATOCRIT 28.7 % (36.0-47.0); HEMOGLOBIN 9.1 g/dL (12.0-15.5); LYMPH # 0.5 x10^3/uL (1.0-4.8); LYMPH % 10 % (24-48); MEAN CORPUSCULAR HEMOGLOBIN 29 pg (25-35); MEAN CORPUSCULAR HGB CONC 32 g/dL (31-37); MEAN CORPUSCULAR VOLUME 92 fL (79-100); MONO # 0.3 x10^3/uL (0.0-1.1); MONO % 6 % (0-9); NEUT # 4.2 x10^3/uL (1.8-7.7); NEUT % 80 % (31-73); PLATELET COUNT 201 x10^3/uL (140-400); RED BLOOD COUNT 3.14 x10^6/uL (3.50-5.40); RED CELL DISTRIBUTION WIDTH 15.3 % (11.5-14.5); WHITE BLOOD COUNT 5.2 x10^3/uL (4.0-11.0)
[2021-07-19 05:29] LABS: CALCIUM 8.1 mg/dL (8.5-10.1); CREATININE 0.8 mg/dL (0.6-1.0); GFR 67.7; MAGNESIUM 2.1 mg/dL (1.8-2.4); POTASSIUM 3.9 mmol/L (3.5-5.1)
[2021-07-19] MEDS: PANTOPRAZOLE IV PUSH 40 MG VIAL. IVP SCH (07:47)
[2021-07-19] MEDS: methylPREDNISolone SOD SUCC PF 40 MG/ML VIAL. IV SCH ×3 (10:32→21:49)
--- NOTE | 2021-07-19 10:41 | PDOC ---
PULMONARY PROGRESS NOTES DATE: 07/19/21 TIME: 10:37 Subjective Patient extubated yesterday. Currently on nasal cannula. Has some wheezing. She required Precedex drip yesterday for anxiety. Currently off Vitals Vital Signs Date Time Temp Pulse Resp B/P (MAP) Pulse Ox O2 Delivery O2 Flow Rate FiO2 07/19/21 08:00 97.7 76 22 111/76 (88) 98 Nasal Cannula 4.0 97.7 General: Alert, No acute distress Lungs: Wheezing Cardiovascular: S1 Extremities: No Edema Skin: Warm Labs Laboratory Tests Test 07/17/21 19:58 07/18/21 06:20 07/18/21 09:15 07/19/21 04:30 Glucose (Fingerstick) 70 mg/dL (70-99) White Blood Count 5.6 x10^3/uL (4.0-11.0) 5.2 x10^3/uL (4.0-11.0) Red Blood Count 3.12 x10^6/uL (3.50-5.40) 3.14 x10^6/uL (3.50-5.40) Hemoglobin 9.1 g/dL (12.0-15.5) 9.1 g/dL (12.0-15.5) Hematocrit 28.7 % (36.0-47.0) 28.7 % (36.0-47.0) Mean Corpuscular Volume 92 fL (79-100) 92 fL (79-100) Mean Corpuscular Hemoglobin 29 pg (25-35) 29 pg (25-35) Mean Corpuscular Hemoglobin Concent 32 g/dL (31-37) 32 g/dL (31-37) Red Cell Distribution Width 15.6 % (11.5-14.5) 15.3 % (11.5-14.5) Platelet Count 203 x10^3/uL (140-400) 201 x10^3/uL (140-400) Neutrophils (%) (Auto) 72 % (31-73) 80 % (31-73) Lymphocytes (%) (Auto) 14 % (24-48) 10 % (24-48) Monocytes (%) (Auto) 8 % (0-9) 6 % (0-9) Eosinophils (%) (Auto) 5 % (0-3) 3 % (0-3) Basophils (%) (Auto) 1 % (0-3) 1 % (0-3) Neutrophils # (Auto) 4.0 x10^3/uL (1.8-7.7) 4.2 x10^3/uL (1.8-7.7) Lymphocytes # (Auto) 0.8 x10^3/uL (1.0-4.8) 0.5 x10^3/uL (1.0-4.8) Monocytes # (Auto) 0.5 x10^3/uL (0.0-1.1) 0.3 x10^3/uL (0.0-1.1) Eosinophils # (Auto) 0.3 x10^3/uL (0.0-0.7) 0.1 x10^3/uL (0.0-0.7) Basophils # (Auto) 0.0 x10^3/uL (0.0-0.2) 0.0 x10^3/uL (0.0-0.2) Sodium Level 140 mmol/L (136-145) 142 mmol/L (136-145) Potassium Level 4.5 mmol/L (3.5-5.1) 3.9 mmol/L (3.5-5.1) Chloride Level 104 mmol/L (98-107) 104 mmol/L (98-107) Carbon Dioxide Level 33 mmol/L (21-32) 32 mmol/L (21-32) Anion Gap 3 (6-14) 6 (6-14) Blood Urea Nitrogen 14 mg/dL (7-20) 13 mg/dL (7-20) Creatinine 0.9 mg/dL (0.6-1.0) 0.8 mg/dL (0.6-1.0) Estimated GFR (Cockcroft-Gault) 59.1 67.7 Glucose Level 65 mg/dL (70-99) 58 mg/dL (70-99) Calcium Level 8.5 mg/dL (8.5-10.1) 8.1 mg/dL (8.5-10.1) Magnesium Level 2.1 mg/dL (1.8-2.4) 2.1 mg/dL (1.8-2.4) O2 Saturation 98 % (92-99) Arterial Blood pH 7.40 (7.35-7.45) Arterial Blood pCO2 at Patient Temp 49 mmHg (35-46) Arterial Blood pO2 at Patient Temp 99 mmHg (65-108) Arterial Blood HCO3 30 mmol/L (21-28) Arterial Blood Base Excess 4 mmol/L (-3-3) FiO2 40 Test 07/19/21 06:43 Glucose (Fingerstick) 65 mg/dL (70-99) Laboratory Tests Test 07/19/21 04:30 07/19/21 06:43 White Blood Count 5.2 x10^3/uL (4.0-11.0) Red Blood Count 3.14 x10^6/uL (3.50-5.40) Hemoglobin 9.1 g/dL (12.0-15.5) Hematocrit 28.7 % (36.0-47.0) Mean Corpuscular Volume 92 fL (79-100) Mean Corpuscular Hemoglobin 29 pg (25-35) Mean Corpuscular Hemoglobin Concent 32 g/dL (31-37) Red Cell Distribution Width 15.3 % (11.5-14.5) Platelet Count 201 x10^3/uL (140-400) Neutrophils (%) (Auto) 80 % (31-73) Lymphocytes (%) (Auto) 10 % (24-48) Monocytes (%) (Auto) 6 % (0-9) Eosinophils (%) (Auto) 3 % (0-3) Basophils (%) (Auto) 1 % (0-3) Neutrophils # (Auto) 4.2 x10^3/uL (1.8-7.7) Lymphocytes # (Auto) 0.5 x10^3/uL (1.0-4.8) Monocytes # (Auto) 0.3 x10^3/uL (0.0-1.1) Eosinophils # (Auto) 0.1 x10^3/uL (0.0-0.7) Basophils # (Auto) 0.0 x10^3/uL (0.0-0.2) Sodium Level 142 mmol/L (136-145) Potassium Level 3.9 mmol/L (3.5-5.1) Chloride Level 104 mmol/L (98-107) Carbon Dioxide Level 32 mmol/L (21-32) Anion Gap 6 (6-14) Blood Urea Nitrogen 13 mg/dL (7-20) Creatinine 0.8 mg/dL (0.6-1.0) Estimated GFR (Cockcroft-Gault) 67.7 Glucose Level 58 mg/dL (70-99) Calcium Level 8.1 mg/dL (8.5-10.1) Magnesium Level 2.1 mg/dL (1.8-2.4) Glucose (Fingerstick) 65 mg/dL (70-99) Medications Active Scripts Medications Dose Route/Sig Max Daily Dose Days Date Category Duoneb 0.5-3(2.5) Mg/3 Ml (Albuterol/Ipratropium) 3 Ml Ampul.neb 3 Ml NEB Q6HRS 07/16/21 Reported Vitamin C (Ascorbic Acid) 500 Mg Tablet 1,000 Mg PO DAILY 30 06/26/21 Rx Comments Chest x-ray reviewed 07/18/2021. No pneumothorax seen. Vascular markings improved. Impression . 1. Acute respiratory failure secondary to acute encephalopathy. Etiology not so obvious. She had a CT angiogram and there was no significant large vessel occlusion. No significant stenosis of the cervical, carotid or vertebral arteries. Mental status improved. Extubated 07/18/2021 2. Abnormal chest x-ray with slightly prominent interstitial markings and a skin fold. No definite pneumothorax. Repeat chest x-ray stable with no evidence of pneumothorax 3. Moderate to severe protein-calorie malnutrition. 4. Bronchospasm. Cannot exclude CHF contributing to bronchospasm. Will repeat chest x-ray Plan . RECOMMENDATIONS: 1. Patient is clinically improved. She is extubated. She has wheezing today. We will maximize bronchodilator. We will add steroids. Will repeat chest x-ray rule out CHF and give Lasix. 2. Oral nutrition 3. DVT prophylaxis with Lovenox. 4. Obtain echocardiogram. 5. Avoid any benzos. 6. Discussed with RN 7. We will keep her in the ICU. NI MARLEY MD Jul 19, 2021 10:41
[2021-07-19] MEDS ORDERED: FUROSEMIDE 40 MG/4 ML VIAL. IVP ONE (11:00)
--- NOTE | 2021-07-19 12:53 | PDOC ---
PROGRESS NOTES Date of Service DATE: 07/19/21 TIME: 12:51 Assessment Problems Medical Problems: (1) AMS (altered mental status) Status: Acute (2) Respiratory failure Status: Acute Respiratory event, a seizure is possible. There is no evidence that she had a stroke. Plan Treat the respiratory failure and other medical issues No need for additional neurological studies such as MRI of the brain or electroencephalogram Hold on starting empiric anticonvulsants Note that she is now DO NOT RESUSCITATE Subjective Denies pain Objective Vital Signs Date Time Temp Pulse Resp B/P (MAP) Pulse Ox O2 Delivery O2 Flow Rate FiO2 07/19/21 11:39 100 Nasal Cannula 3.0 07/19/21 08:00 97.7 76 22 111/76 (88) 97.7 Intake and Output 07/19/21 07:00 Intake Total 150 ml Output Total 555 ml Balance -405 ml Intake IV Total 150 ml Output Urine Total 555 ml PHYSICAL EXAM Extubated, follows commands, knows name, says that she is at [address], does not know the date PERRL. EOMI. CN: no focal findings. Muscle tone: normal. Muscle strength: 4/5 DTR: 1+ Plantar reflex: Flexor Gait: not examined in bed. Sensory exam: no abnormal findings. No cerebellar signs elicited. Review of Relevant I have reviewed the following items chun (where applicable) has been applied. Labs Laboratory Tests Test 07/17/21 19:58 07/18/21 06:20 07/18/21 09:15 07/19/21 04:30 Glucose (Fingerstick) 70 mg/dL (70-99) White Blood Count 5.6 x10^3/uL (4.0-11.0) 5.2 x10^3/uL (4.0-11.0) Red Blood Count 3.12 x10^6/uL (3.50-5.40) 3.14 x10^6/uL (3.50-5.40) Hemoglobin 9.1 g/dL (12.0-15.5) 9.1 g/dL (12.0-15.5) Hematocrit 28.7 % (36.0-47.0) 28.7 % (36.0-47.0) Mean Corpuscular Volume 92 fL (79-100) 92 fL (79-100) Mean Corpuscular Hemoglobin 29 pg (25-35) 29 pg (25-35) Mean Corpuscular Hemoglobin Concent 32 g/dL (31-37) 32 g/dL (31-37) Red Cell Distribution Width 15.6 % (11.5-14.5) 15.3 % (11.5-14.5) Platelet Count 203 x10^3/uL (140-400) 201 x10^3/uL (140-400) Neutrophils (%) (Auto) 72 % (31-73) 80 % (31-73) Lymphocytes (%) (Auto) 14 % (24-48) 10 % (24-48) Monocytes (%) (Auto) 8 % (0-9) 6 % (0-9) Eosinophils (%) (Auto) 5 % (0-3) 3 % (0-3) Basophils (%) (Auto) 1 % (0-3) 1 % (0-3) Neutrophils # (Auto) 4.0 x10^3/uL (1.8-7.7) 4.2 x10^3/uL (1.8-7.7) Lymphocytes # (Auto) 0.8 x10^3/uL (1.0-4.8) 0.5 x10^3/uL (1.0-4.8) Monocytes # (Auto) 0.5 x10^3/uL (0.0-1.1) 0.3 x10^3/uL (0.0-1.1) Eosinophils # (Auto) 0.3 x10^3/uL (0.0-0.7) 0.1 x10^3/uL (0.0-0.7) Basophils # (Auto) 0.0 x10^3/uL (0.0-0.2) 0.0 x10^3/uL (0.0-0.2) Sodium Level 140 mmol/L (136-145) 142 mmol/L (136-145) Potassium Level 4.5 mmol/L (3.5-5.1) 3.9 mmol/L (3.5-5.1) Chloride Level 104 mmol/L (98-107) 104 mmol/L (98-107) Carbon Dioxide Level 33 mmol/L (21-32) 32 mmol/L (21-32) Anion Gap 3 (6-14) 6 (6-14) Blood Urea Nitrogen 14 mg/dL (7-20) 13 mg/dL (7-20) Creatinine 0.9 mg/dL (0.6-1.0) 0.8 mg/dL (0.6-1.0) Estimated GFR (Cockcroft-Gault) 59.1 67.7 Glucose Level 65 mg/dL (70-99) 58 mg/dL (70-99) Calcium Level 8.5 mg/dL (8.5-10.1) 8.1 mg/dL (8.5-10.1) Magnesium Level 2.1 mg/dL (1.8-2.4) 2.1 mg/dL (1.8-2.4) O2 Saturation 98 % (92-99) Arterial Blood pH 7.40 (7.35-7.45) Arterial Blood pCO2 at Patient Temp 49 mmHg (35-46) Arterial Blood pO2 at Patient Temp 99 mmHg (65-108) Arterial Blood HCO3 30 mmol/L (21-28) Arterial Blood Base Excess 4 mmol/L (-3-3) FiO2 40 Test 07/19/21 06:43 Glucose (Fingerstick) 65 mg/dL (70-99) Laboratory Tests Test 07/19/21 04:30 07/19/21 06:43 White Blood Count 5.2 x10^3/uL (4.0-11.0) Red Blood Count 3.14 x10^6/uL (3.50-5.40) Hemoglobin 9.1 g/dL (12.0-15.5) Hematocrit 28.7 % (36.0-47.0) Mean Corpuscular Volume 92 fL (79-100) Mean Corpuscular Hemoglobin 29 pg (25-35) Mean Corpuscular Hemoglobin Concent 32 g/dL (31-37) Red Cell Distribution Width 15.3 % (11.5-14.5) Platelet Count 201 x10^3/uL (140-400) Neutrophils (%) (Auto) 80 % (31-73) Lymphocytes (%) (Auto) 10 % (24-48) Monocytes (%) (Auto) 6 % (0-9) Eosinophils (%) (Auto) 3 % (0-3) Basophils (%) (Auto) 1 % (0-3) Neutrophils # (Auto) 4.2 x10^3/uL (1.8-7.7) Lymphocytes # (Auto) 0.5 x10^3/uL (1.0-4.8) Monocytes # (Auto) 0.3 x10^3/uL (0.0-1.1) Eosinophils # (Auto) 0.1 x10^3/uL (0.0-0.7) Basophils # (Auto) 0.0 x10^3/uL (0.0-0.2) Sodium Level 142 mmol/L (136-145) Potassium Level 3.9 mmol/L (3.5-5.1) Chloride Level 104 mmol/L (98-107) Carbon Dioxide Level 32 mmol/L (21-32) Anion Gap 6 (6-14) Blood Urea Nitrogen 13 mg/dL (7-20) Creatinine 0.8 mg/dL (0.6-1.0) Estimated GFR (Cockcroft-Gault) 67.7 Glucose Level 58 mg/dL (70-99) Calcium Level 8.1 mg/dL (8.5-10.1) Magnesium Level 2.1 mg/dL (1.8-2.4) Glucose (Fingerstick) 65 mg/dL (70-99) Medications Current Medications Rocuronium [place] (Zemuron) 50 mg 1X ONCE IV Last administered on 07/16/21at 18:33; Start 07/16/21 at 16:00; Stop 07/16/21 at 16:03; Status DC Etomidate (Amidate) 18 mg 1X ONCE IV Last administered on 07/16/21at 18:32; Start 07/16/21 at 16:00; Stop 07/16/21 at 16:03; Status DC Fentanyl Citrate (Fentanyl 2ml Vial) 50 mcg 1X ONCE IVP ; Start 07/16/21 at 16:00; Stop 07/16/21 at 16:03; Status DC Propofol 100 ml @ 1.68 mls/hr CONT PRN IV PER PROTOCOL Last administered on 07/17/21at 07:42; Start 07/16/21 at 16:00; Stop 07/18/21 at 19:37; Status DC Iohexol (Omnipaque 350 Mg/ml) 75 ml 1X ONCE IV Last administered on 07/16/21at 17:15; Start 07/16/21 at 17:15; Stop 07/16/21 at 17:16; Status DC Fentanyl Citrate (Fentanyl 2ml Vial) 100 mcg 1X ONCE IVP ; Start 07/16/21 at 18:45; Stop 07/16/21 at 18:46; Status DC Fentanyl Citrate 30 ml @ 0 mls/hr CONT PRN IV SEE PROTOCOL; Start 07/16/21 at 18:45; Status Cancel Ketamine HCl (Ketamine) 50 mg STK-MED ONCE .ROUTE ; Start 07/16/21 at 19:16; Stop 07/16/21 at 19:16; Status DC Fentanyl Citrate 30 ml @ 0 mls/hr CONT PRN IV SEE PROTOCOL Last administered on 07/17/21at 20:00; Start 07/16/21 at 19:44; Stop 07/18/21 at 19:37; Status DC Ketamine HCl (Ketamine) 65 mg 1X ONCE IV Last administered on 07/16/21at 19:25; Start 07/16/21 at 20:00; Stop 07/16/21 at 20:01; Status DC Sennosides (Senna) 17.2 mg PRN BID PRN PO CONSTIPATION; Start 07/16/21 at 20:30 Docusate Sodium (Colace) 100 mg PRN DAILY PRN PO HARD STOOLS; Start 07/16/21 at 20:30 Ondansetron HCl (Zofran) 4 mg PRN Q6HRS PRN IVP NAUSEA/VOMITING, 1st CHOICE; Start 07/16/21 at 20:30 Dextrose (Dextrose 50%-Water Syringe) 12.5 gm PRN Q15MIN PRN IV SEE COMMENTS; Start 07/16/21 at 20:30 Acetaminophen (Tylenol) 650 mg PRN Q4HRS PRN PO TEMP OVER 100.4F OR MILD PAIN; Start 07/16/21 at 20:30 Lorazepam (Ativan) 0.5 mg PRN Q6HRS PRN PO ANXIETY / AGITATION; Start 07/16/21 at 20:30; Stop 07/18/21 at 19:37; Status DC Lorazepam (Ativan Inj) 0.25 mg PRN Q4HRS PRN IV ANXIETY / AGITATION; Start 07/16/21 at 20:30 Prochlorperazine Edisylate (Compazine) 10 mg PRN Q6HRS PRN IV NAUSEA/VOMITING, 2nd CHOICE; Start 07/16/21 at 20:30 Diphenhydramine HCl (Benadryl) 25 mg PRN Q6HRS PRN IVP ITCHING; Start 07/16/21 at 20:30; Stop 07/18/21 at 19:37; Status DC Diphenhydramine HCl (Benadryl) 25 mg PRN Q6HRS PRN PO ITCHING; Start 07/16/21 at 20:30; Stop 07/18/21 at 19:37; Status DC Diphenhydramine HCl (Benadryl) 25 mg PRN QHS PRN PO INSOMNIA, 1st CHOICE; Start 07/16/21 at 20:30; Stop 07/18/21 at 19:37; Status DC Zolpidem Tartrate (Ambien) 2.5 mg PRN QHS PRN PO INSOMNIA, 2nd CHOICE; Start 07/16/21 at 20:30 Enoxaparin Sodium (Lovenox 40mg Syringe) 40 mg Q24H SQ Last administered on 07/18/21at 21:11; Start 07/16/21 at 21:00 Pantoprazole Sodium (PROTONIX VIAL for IV PUSH) 40 mg DAILYAC IVP Last administered on 07/19/21at 07:47; Start 07/17/21 at 07:30 Piperacillin Sod/ Tazobactam Sod (Zosyn Per Pharmacy) 1 each PRN DAILY PRN MC SEE COMMENTS; Start 07/17/21 at 11:45 Albuterol/ Ipratropium (Duoneb) 3 ml Q6HRS NEB Last administered on 07/19/21at 07:21; Start 07/17/21 at 12:00; Stop 07/19/21 at 10:44; Status DC Piperacillin Sod/ Tazobactam Sod 2.25 gm/Sodium Chloride 50 ml @ 100 mls/hr Q6HRS IV Last administered on 07/19/21at 11:53; Start 07/17/21 at 12:00 Methylprednisolone Sodium Succinate (SOLU-Medrol 40MG VIAL) 40 mg Q8HRS IV Last administered on 07/19/21at 10:32; Start 07/19/21 at 10:15 Furosemide (Lasix) 40 mg 1X ONCE IVP Last administered on 07/19/21at 10:52; Start 07/19/21 at 11:00; Stop 07/19/21 at 11:01; Status DC Albuterol/ Ipratropium (Duoneb) 3 ml Q4HRS W/A NEB Last administered on at 11:38; Start 07/19/21 at 14:00 Active Scripts Active Vitamin C (Ascorbic Acid) 500 Mg Tablet 1,000 Mg PO DAILY 30 Days Reported Duoneb 0.5-3(2.5) Mg/3 Ml (Albuterol/Ipratropium) 3 Ml Ampul.neb 3 Ml NEB Q6HRS Vitals/I & O Vital Sign - Last 24 Hours 07/18/21 07/18/21 07/18/21 07/18/21 13:00 13:45 14:00 15:00 Pulse 94 82 78 B/P (MAP) 142/62 108/47 101/61 Pulse Ox 98 99 99 100 O2 Delivery BiPAP/CPAP BiPAP/CPAP BiPAP/CPAP BiPAP/CPAP 07/18/21 07/18/21 07/18/21 07/18/21 15:41 16:00 16:00 17:00 Temp 98.0 98.0 Pulse 78 72 B/P (MAP) 101/58 92/56 Pulse Ox 100 100 100 O2 Delivery BiPAP/CPAP BiPAP/CPAP Mechanical Ventilator BiPAP/CPAP 07/18/21 07/18/21 07/18/21 07/18/21 17:31 18:00 18:30 19:00 Pulse 74 88 88 Resp 24 B/P (MAP) 100/56 105/71 (82) Pulse Ox 100 100 100 O2 Delivery BiPAP/CPAP BiPAP/CPAP Nasal Cannula Nasal Cannula O2 Flow Rate 3.0 3.0 07/18/21 07/18/21 07/18/21 07/18/21 19:06 20:00 20:00 20:53 Temp 97.8 97.8 Pulse 82 Resp 24 B/P (MAP) 102/62 (75) Pulse Ox 100 100 O2 Delivery Nasal Cannula Nasal Cannula Nasal Cannula O2 Flow Rate 3.0 3.0 4.0 07/18/21 07/18/21 07/18/21 07/18/21 21:00 22:00 23:00 23:59 Pulse 74 70 72 Resp 20 20 18 B/P (MAP) 98/58 (71) 98/53 (68) 94/53 (67) Pulse Ox 100 100 100 O2 Delivery Nasal Cannula Nasal Cannula Nasal Cannula Bi-pap O2 Flow Rate 3.0 3.0 3.0 07/19/21 07/19/21 07/19/21 07/19/21 00:00 00:05 01:00 02:00 Temp 97.7 97.7 Pulse 70 68 72 Resp 18 18 18 B/P (MAP) 107/65 (79) 95/68 (77) 100/61 (74) Pulse Ox 100 97 100 100 O2 Delivery BiPAP/CPAP BiPAP/CPAP BiPAP/CPAP BiPAP/CPAP 07/19/21 07/19/21 07/19/21 07/19/21 02:12 03:00 04:00 04:00 Temp 97.7 97.7 Pulse 74 72 Resp 17 18 B/P (MAP) 104/57 (73) 98/65 (76) Pulse Ox 100 100 98 O2 Delivery BiPAP/CPAP BiPAP/CPAP BiPAP/CPAP Bi-pap 07/19/21 07/19/21 07/19/21 07/19/21 05:00 06:00 07:00 07:21 Pulse 74 88 76 Resp 20 21 23 B/P (MAP) 107/62 (77) 116/63 (80) 133/76 (95) Pulse Ox 97 100 100 100 O2 Delivery BiPAP/CPAP Nasal Cannula Nasal Cannula Nasal Cannula O2 Flow Rate 4.0 4.0 3.0 07/19/21 07/19/21 08:00 11:39 Temp 97.7 97.7 Pulse 76 Resp 22 B/P (MAP) 111/76 (88) Pulse Ox 98 100 O2 Delivery Nasal Cannula Nasal Cannula O2 Flow Rate 4.0 3.0 Intake and Output 07/18/21 07/18/21 07/19/21 15:00 23:00 07:00 Intake Total 100 ml 50 ml Output Total 175 ml 185 ml 195 ml Balance -175 ml -85 ml -145 ml Justicifation of Admission Dx: Justifications for Admission: Justification of Admission Dx: N/A HUSSAIN HOBSON MD Jul 19, 2021 12:53
--- NOTE | 2021-07-19 12:55 | PDOC ---
[employer] PROGRESS NOTE Date of Service DOS: DATE: 07/19/21 TIME: 12:52 Chief Complaint Chief Complaint Acute respiratory failure with hypoxia Aspiration pneumonia HAP - gram-negative or gram-positive organism AMS History COPD History of Present Illness History of Present Illness 07/18: Afebrile. Extubated today, currently breathing on 4 L nasal cannula. Repeat CXR today shows increasing left basilar opacities; will continue Zosyn. Discussed with patient daughter by phone (DPOA), who states that patient would not want to be alive on a ventilator or have chest compressions performed again. Patient is a DNR going forward. Critical care time 30 minutes spent reviewing charts, reviewing labs, reviewing imaging, and discussion with RN. 07/19: Afebrile, on 3 L O2 cannula. CRP slightly high at 13.6. She is hyperglycemic today. We will continue Solu-Medrol and Zosyn. Will order MRSA PCR due to worsening pneumonia seen on chest x-ray. Patient is alert and conversive, but still confused. Family at bedside, discussed in great lengths DNR versus DNI, and CODE STATUS. Patient and DPOA are still agreeable to DNR. Advance Care Planning: Total time spent [id number] with patient 16 minutes in discussion with goals of care, comfort care, end-of-life care, pain management, code status; patient names her daughter as surrogate decision-maker. Vitals/I&O Vitals/I&O: Vital Signs Date Time Temp Pulse Resp B/P (MAP) Pulse Ox O2 Delivery O2 Flow Rate FiO2 07/19/21 11:39 100 Nasal Cannula 3.0 07/19/21 08:00 97.7 76 22 111/76 (88) 97.7 I & O 07/18/21 07/18/21 07/19/21 15:00 23:00 07:00 Intake Total 100 ml 50 ml Output Total 175 ml 185 ml 195 ml Balance -175 ml -85 ml -145 ml Physical Exam General: Alert, Cooperative, No acute distress Heart: Regular rate Lungs: Wheezing, Crackles Abdomen: Soft Extremities: No cyanosis Skin: No rashes Labs Labs: Laboratory Tests Test 07/19/21 04:30 07/19/21 06:43 White Blood Count 5.2 x10^3/uL (4.0-11.0) Red Blood Count 3.14 x10^6/uL (3.50-5.40) Hemoglobin 9.1 g/dL (12.0-15.5) Hematocrit 28.7 % (36.0-47.0) Mean Corpuscular Volume 92 fL (79-100) Mean Corpuscular Hemoglobin 29 pg (25-35) Mean Corpuscular Hemoglobin Concent 32 g/dL (31-37) Red Cell Distribution Width 15.3 % (11.5-14.5) Platelet Count 201 x10^3/uL (140-400) Neutrophils (%) (Auto) 80 % (31-73) Lymphocytes (%) (Auto) 10 % (24-48) Monocytes (%) (Auto) 6 % (0-9) Eosinophils (%) (Auto) 3 % (0-3) Basophils (%) (Auto) 1 % (0-3) Neutrophils # (Auto) 4.2 x10^3/uL (1.8-7.7) Lymphocytes # (Auto) 0.5 x10^3/uL (1.0-4.8) Monocytes # (Auto) 0.3 x10^3/uL (0.0-1.1) Eosinophils # (Auto) 0.1 x10^3/uL (0.0-0.7) Basophils # (Auto) 0.0 x10^3/uL (0.0-0.2) Sodium Level 142 mmol/L (136-145) Potassium Level 3.9 mmol/L (3.5-5.1) Chloride Level 104 mmol/L (98-107) Carbon Dioxide Level 32 mmol/L (21-32) Anion Gap 6 (6-14) Blood Urea Nitrogen 13 mg/dL (7-20) Creatinine 0.8 mg/dL (0.6-1.0) Estimated GFR (Cockcroft-Gault) 67.7 Glucose Level 58 mg/dL (70-99) Calcium Level 8.1 mg/dL (8.5-10.1) Magnesium Level 2.1 mg/dL (1.8-2.4) Glucose (Fingerstick) 65 mg/dL (70-99) Assessment and Plan Assessmemt and Plan Problems Medical Problems: (1) AMS (altered mental status) Status: Acute (2) Respiratory failure Status: Acute Comment Review of Relevant I have reviewed the following items chun (where applicable) has been applied. Medications: Current Medications Medications (Trade) Dose Ordered Sig/Nikkie Route PRN Reason Start Time Stop Time Status Last Admin Dose Admin Methylprednisolone Sodium Succinate (SOLU-Medrol 40MG VIAL) 40 mg Q8HRS IV 07/19/21 10:15 07/19/21 10:32 Furosemide (Lasix) 40 mg 1X ONCE IVP 07/19/21 11:00 07/19/21 11:01 DC 07/19/21 10:52 Albuterol/ Ipratropium (Duoneb) 3 ml Q4HRS W/A NEB 07/19/21 14:00 07/19/21 11:38 Justifications for Admission Other Justification Respiratory failure DOMINGO ROMERO MD Jul 19, 2021 12:55
[2021-07-19] MEDS: ENOXAPARIN 40 MG/0.4 ML SYRINGE. SQ SCH (21:48)
[2021-07-20] VITALS (13 sets, daily range): BP systolic 94–141; BP diastolic 48–81
[2021-07-20 04:50] LABS: BASO % 0 % (0-3); EOS % 0 % (0-3); HEMATOCRIT 29.2 % (36.0-47.0); HEMOGLOBIN 9.5 g/dL (12.0-15.5); LYMPH # 0.3 x10^3/uL (1.0-4.8); LYMPH % 9 % (24-48); MEAN CORPUSCULAR HEMOGLOBIN 29 pg (25-35); MEAN CORPUSCULAR HGB CONC 33 g/dL (31-37); MEAN CORPUSCULAR VOLUME 90 fL (79-100); MONO % 1 % (0-9); NEUT # 3.3 x10^3/uL (1.8-7.7); NEUT % 90 % (31-73); PLATELET COUNT 240 x10^3/uL (140-400); RED BLOOD COUNT 3.26 x10^6/uL (3.50-5.40); RED CELL DISTRIBUTION WIDTH 15.5 % (11.5-14.5); WHITE BLOOD COUNT 3.7 x10^3/uL (4.0-11.0)
[2021-07-20] MEDS: methylPREDNISolone SOD SUCC PF 40 MG/ML VIAL. IV SCH ×3 (05:51→22:44)
[2021-07-20] MEDS: PIPERACILLIN/TAZOBACTAM 2.25 GM in IV NORMAL SALINE 50ML 50 ML IV SCH ×4 (05:54→18:21)
[2021-07-20] MEDS: PANTOPRAZOLE IV PUSH 40 MG VIAL. IVP SCH (06:29)
--- NOTE | 2021-07-20 06:56 | RAD ---
AP chest x-ray HISTORY: Congestive heart failure. COMPARISON: Chest x-ray July 18, 2021 FINDINGS: Heart size is normal. Aortic arch calcified plaque. Calcified granuloma right hilum. Small pleural effusions along the diaphragms are stable. Mild improved aeration of the left lower lobe with decreased density of the opacity. Development of mild basilar right lower lobe atelectasis/infiltrat e along the diaphragm. IMPRESSION: Mixed change. Improved aeration of the left lower lobe with decreased opacity, however th ere is development of new mild basilar right lower lobe atelectasis/infiltrate. Small pleural effusio ns along the diaphragms are stable. Electronically signed by: Bhupinder Rodriguez MD (07/20/2021 6:53 AM) [facility]
[2021-07-20] MEDS: IPRATRPIUM/ALBUTEROL 0.5/2.5MG 3 ML NEBU. NEB SCH ×4 (07:06→20:30)
--- NOTE | 2021-07-20 09:56 | PDOC ---
PULMONARY PROGRESS NOTES DATE: 07/20/21 TIME: 09:53 Subjective Patient extubated 07/18/2021. Currently on nasal cannula. Has some wheezing yesterday.. Vitals Vital Signs Date Time Temp Pulse Resp B/P (MAP) Pulse Ox O2 Delivery O2 Flow Rate FiO2 07/20/21 09:00 80 21 125/69 (87) 99 Nasal Cannula 2.0 07/20/21 08:00 98.4 98.4 General: Alert, No acute distress Lungs: Wheezing (Less prominent) Cardiovascular: S1 Extremities: No Edema Skin: Warm Labs Laboratory Tests Test 07/19/21 04:30 07/19/21 06:43 07/20/21 04:00 White Blood Count 5.2 x10^3/uL (4.0-11.0) 3.7 x10^3/uL (4.0-11.0) Red Blood Count 3.14 x10^6/uL (3.50-5.40) 3.26 x10^6/uL (3.50-5.40) Hemoglobin 9.1 g/dL (12.0-15.5) 9.5 g/dL (12.0-15.5) Hematocrit 28.7 % (36.0-47.0) 29.2 % (36.0-47.0) Mean Corpuscular Volume 92 fL (79-100) 90 fL (79-100) Mean Corpuscular Hemoglobin 29 pg (25-35) 29 pg (25-35) Mean Corpuscular Hemoglobin Concent 32 g/dL (31-37) 33 g/dL (31-37) Red Cell Distribution Width 15.3 % (11.5-14.5) 15.5 % (11.5-14.5) Platelet Count 201 x10^3/uL (140-400) 240 x10^3/uL (140-400) Neutrophils (%) (Auto) 80 % (31-73) 90 % (31-73) Lymphocytes (%) (Auto) 10 % (24-48) 9 % (24-48) Monocytes (%) (Auto) 6 % (0-9) 1 % (0-9) Eosinophils (%) (Auto) 3 % (0-3) 0 % (0-3) Basophils (%) (Auto) 1 % (0-3) 0 % (0-3) Neutrophils # (Auto) 4.2 x10^3/uL (1.8-7.7) 3.3 x10^3/uL (1.8-7.7) Lymphocytes # (Auto) 0.5 x10^3/uL (1.0-4.8) 0.3 x10^3/uL (1.0-4.8) Monocytes # (Auto) 0.3 x10^3/uL (0.0-1.1) 0.0 x10^3/uL (0.0-1.1) Eosinophils # (Auto) 0.1 x10^3/uL (0.0-0.7) 0.0 x10^3/uL (0.0-0.7) Basophils # (Auto) 0.0 x10^3/uL (0.0-0.2) 0.0 x10^3/uL (0.0-0.2) Sodium Level 142 mmol/L (136-145) Potassium Level 3.9 mmol/L (3.5-5.1) Chloride Level 104 mmol/L (98-107) Carbon Dioxide Level 32 mmol/L (21-32) Anion Gap 6 (6-14) Blood Urea Nitrogen 13 mg/dL (7-20) Creatinine 0.8 mg/dL (0.6-1.0) Estimated GFR (Cockcroft-Gault) 67.7 Glucose Level 58 mg/dL (70-99) Calcium Level 8.1 mg/dL (8.5-10.1) Magnesium Level 2.1 mg/dL (1.8-2.4) Glucose (Fingerstick) 65 mg/dL (70-99) Laboratory Tests Test 07/20/21 04:00 White Blood Count 3.7 x10^3/uL (4.0-11.0) Red Blood Count 3.26 x10^6/uL (3.50-5.40) Hemoglobin 9.5 g/dL (12.0-15.5) Hematocrit 29.2 % (36.0-47.0) Mean Corpuscular Volume 90 fL (79-100) Mean Corpuscular Hemoglobin 29 pg (25-35) Mean Corpuscular Hemoglobin Concent 33 g/dL (31-37) Red Cell Distribution Width 15.5 % (11.5-14.5) Platelet Count 240 x10^3/uL (140-400) Neutrophils (%) (Auto) 90 % (31-73) Lymphocytes (%) (Auto) 9 % (24-48) Monocytes (%) (Auto) 1 % (0-9) Eosinophils (%) (Auto) 0 % (0-3) Basophils (%) (Auto) 0 % (0-3) Neutrophils # (Auto) 3.3 x10^3/uL (1.8-7.7) Lymphocytes # (Auto) 0.3 x10^3/uL (1.0-4.8) Monocytes # (Auto) 0.0 x10^3/uL (0.0-1.1) Eosinophils # (Auto) 0.0 x10^3/uL (0.0-0.7) Basophils # (Auto) 0.0 x10^3/uL (0.0-0.2) Medications Active Scripts Medications Dose Route/Sig Max Daily Dose Days Date Category Duoneb 0.5-3(2.5) Mg/3 Ml (Albuterol/Ipratropium) 3 Ml Ampul.neb 3 Ml NEB Q6HRS 07/16/21 Reported Vitamin C (Ascorbic Acid) 500 Mg Tablet 1,000 Mg PO DAILY 30 06/26/21 Rx Comments Chest x-ray reviewed 07/19/2021. Mild patchy interstitial infiltrate Chest x-ray reviewed 07/18/2021. No pneumothorax seen. Vascular markings improved. Impression . 1. Acute respiratory failure secondary to acute encephalopathy. Etiology not so obvious. She had a CT angiogram and there was no significant large vessel occlusion. No significant stenosis of the cervical, carotid or vertebral arteries. Mental status improved. Extubated 07/18/2021 2. Abnormal chest x-ray 3. Moderate to severe protein-calorie malnutrition. 4. Bronchospasm. Cannot exclude CHF contributing to bronchospasm. 5. Possible pneumonia Plan . RECOMMENDATIONS: 1. Patient is clinically improved. She is extubated. Wheezing improved. Continue with present bronchodilator./ steroids. 2. Empiric antibiotics to continue. 3. DVT prophylaxis with Lovenox. 4. Obtain echocardiogram. 5. Avoid any benzos. 6. Discussed with RN 7. Speech eval and possible video swallow Okay to transfer to the floor. NI MARLEY MD Jul 20, 2021 09:56
--- NOTE | 2021-07-20 11:38 | PDOC ---
[employer] PROGRESS NOTE Date of Service DOS: DATE: 07/20/21 TIME: 11:31 Chief Complaint Chief Complaint Acute respiratory failure with hypoxia Aspiration pneumonia HAP - gram-negative or gram-positive organism AMS History COPD History of Present Illness History of Present Illness 07/18: Afebrile. Extubated today, currently breathing on 4 L nasal cannula. Repeat CXR today shows increasing left basilar opacities; will continue Zosyn. Discussed with patient daughter by phone (DPOA), who states that patient would not want to be alive on a ventilator or have chest compressions performed again. Patient is a DNR going forward. Critical care time 30 minutes spent reviewing charts, reviewing labs, reviewing imaging, and discussion with RN. 07/19: Afebrile, on 3 L O2 cannula. CRP slightly high at 13.6. She is hyperglycemic today. We will continue Solu-Medrol and Zosyn. Will order MRSA PCR due to worsening pneumonia seen on chest x-ray. Patient is alert and conversive, but still confused. Family at bedside, discussed in great lengths DNR versus DNI, and CODE STATUS. Patient and DPOA are still agreeable to DNR. Advance Care Planning: Total time spent [id number] with patient 16 minutes in discussion with goals of care, comfort care, end-of-life care, pain management, code status; patient names her daughter as surrogate decision-maker. 07/20: Patient seen and evaluated in ICU. Breathing on BiPAP this morning. She has no complaints, still pleasantly demented. CXR from yesterday shows improved aeration of the left lower lobe with decreased opacity, however there is development of new mild basilar right lower lobe atelectasis/infiltrate. Continue Zosyn. She is stable to transfer out of ICU. Discussed with RN. Vitals/I&O Vitals/I&O: Vital Signs Date Time Temp Pulse Resp B/P (MAP) Pulse Ox O2 Delivery O2 Flow Rate FiO2 07/20/21 11:17 100 BiPAP/CPAP 07/20/21 09:00 80 21 125/69 (87) 2.0 07/20/21 08:00 98.4 98.4 I & O 07/19/21 07/19/21 07/20/21 15:00 23:00 07:00 Output Total 270 ml 165 ml 260 ml Balance -270 ml -165 ml -260 ml Physical Exam General: Alert, Cooperative, No acute distress Heart: Regular rate Lungs: Wheezing (Less prominent) Abdomen: Soft Extremities: No cyanosis Skin: No rashes Labs Labs: Laboratory Tests Test 07/20/21 04:00 White Blood Count 3.7 x10^3/uL (4.0-11.0) Red Blood Count 3.26 x10^6/uL (3.50-5.40) Hemoglobin 9.5 g/dL (12.0-15.5) Hematocrit 29.2 % (36.0-47.0) Mean Corpuscular Volume 90 fL (79-100) Mean Corpuscular Hemoglobin 29 pg (25-35) Mean Corpuscular Hemoglobin Concent 33 g/dL (31-37) Red Cell Distribution Width 15.5 % (11.5-14.5) Platelet Count 240 x10^3/uL (140-400) Neutrophils (%) (Auto) 90 % (31-73) Lymphocytes (%) (Auto) 9 % (24-48) Monocytes (%) (Auto) 1 % (0-9) Eosinophils (%) (Auto) 0 % (0-3) Basophils (%) (Auto) 0 % (0-3) Neutrophils # (Auto) 3.3 x10^3/uL (1.8-7.7) Lymphocytes # (Auto) 0.3 x10^3/uL (1.0-4.8) Monocytes # (Auto) 0.0 x10^3/uL (0.0-1.1) Eosinophils # (Auto) 0.0 x10^3/uL (0.0-0.7) Basophils # (Auto) 0.0 x10^3/uL (0.0-0.2) Assessment and Plan Assessmemt and Plan Problems Medical Problems: (1) AMS (altered mental status) Status: Acute (2) Respiratory failure Status: Acute Comment Review of Relevant I have reviewed the following items chun (where applicable) has been applied. Medications: Current Medications Medications (Trade) Dose Ordered Sig/Nikkie Route PRN Reason Start Time Stop Time Status Last Admin Dose Admin Albuterol/ Ipratropium (Duoneb) 3 ml Q4HRS W/A NEB 07/19/21 14:00 07/20/21 11:16 Justifications for Admission Other Justification Respiratory failure DOMINGO ROMERO MD Jul 20, 2021 11:38
[2021-07-20] MEDS: ENOXAPARIN 40 MG/0.4 ML SYRINGE. SQ SCH (22:44)
[2021-07-21] VITALS (7 sets, daily range): BP systolic 130–158; BP diastolic 64–88
[2021-07-21] MEDS: PIPERACILLIN/TAZOBACTAM 2.25 GM in IV NORMAL SALINE 50ML 50 ML IV SCH ×4 (00:39→18:57)
[2021-07-21] MEDS: methylPREDNISolone SOD SUCC PF 40 MG/ML VIAL. IV SCH ×2 (06:03→21:25)
[2021-07-21] MEDS: IPRATRPIUM/ALBUTEROL 0.5/2.5MG 3 ML NEBU. NEB SCH ×5 (08:31→22:50)
--- NOTE | 2021-07-21 08:32 | PDOC ---
PROGRESS NOTES Date of Service DATE: 07/21/21 TIME: 08:30 Assessment Problems Medical Problems: (1) AMS (altered mental status) Status: Acute (2) Respiratory failure Status: Acute Respiratory event, a seizure is possible. There is no evidence that she had a stroke. Dysphagia Plan Await repeat swallow evaluation No need for additional neurological studies such as MRI of the brain or electroencephalogram Hold on starting empiric anticonvulsants Subjective No complaints Objective Vital Signs Date Time Temp Pulse Resp B/P (MAP) Pulse Ox O2 Delivery O2 Flow Rate FiO2 07/21/21 04:00 98.8 78 20 130/78 (95) 98 Nasal Cannula 2.0 98.8 Intake and Output 07/21/21 07:00 Output Total 700 ml Balance -700 ml Output Urine Total 700 ml PHYSICAL EXAM Alert, follows commands, knows name and location, does not know the date PERRL. EOMI. CN: no focal findings. Muscle tone: normal. Muscle strength: 4/5 DTR: 1+ Plantar reflex: Flexor Gait: not examined in bed. Sensory exam: no abnormal findings. No cerebellar signs elicited. Review of Relevant I have reviewed the following items chun (where applicable) has been applied. Labs Laboratory Tests Test 07/20/21 04:00 07/21/21 08:16 White Blood Count 3.7 x10^3/uL (4.0-11.0) Red Blood Count 3.26 x10^6/uL (3.50-5.40) Hemoglobin 9.5 g/dL (12.0-15.5) Hematocrit 29.2 % (36.0-47.0) Mean Corpuscular Volume 90 fL (79-100) Mean Corpuscular Hemoglobin 29 pg (25-35) Mean Corpuscular Hemoglobin Concent 33 g/dL (31-37) Red Cell Distribution Width 15.5 % (11.5-14.5) Platelet Count 240 x10^3/uL (140-400) Neutrophils (%) (Auto) 90 % (31-73) Lymphocytes (%) (Auto) 9 % (24-48) Monocytes (%) (Auto) 1 % (0-9) Eosinophils (%) (Auto) 0 % (0-3) Basophils (%) (Auto) 0 % (0-3) Neutrophils # (Auto) 3.3 x10^3/uL (1.8-7.7) Lymphocytes # (Auto) 0.3 x10^3/uL (1.0-4.8) Monocytes # (Auto) 0.0 x10^3/uL (0.0-1.1) Eosinophils # (Auto) 0.0 x10^3/uL (0.0-0.7) Basophils # (Auto) 0.0 x10^3/uL (0.0-0.2) Glucose (Fingerstick) 75 mg/dL (70-99) Laboratory Tests Test 07/21/21 08:16 Glucose (Fingerstick) 75 mg/dL (70-99) Medications Current Medications Rocuronium [place] (Zemuron) 50 mg 1X ONCE IV Last administered on 07/16/21at 18:33; Start 07/16/21 at 16:00; Stop 07/16/21 at 16:03; Status DC Etomidate (Amidate) 18 mg 1X ONCE IV Last administered on 07/16/21at 18:32; Start 07/16/21 at 16:00; Stop 07/16/21 at 16:03; Status DC Fentanyl Citrate (Fentanyl 2ml Vial) 50 mcg 1X ONCE IVP ; Start 07/16/21 at 16:00; Stop 07/16/21 at 16:03; Status DC Propofol 100 ml @ 1.68 mls/hr CONT PRN IV PER PROTOCOL Last administered on 07/17/21at 07:42; Start 07/16/21 at 16:00; Stop 07/18/21 at 19:37; Status DC Iohexol (Omnipaque 350 Mg/ml) 75 ml 1X ONCE IV Last administered on 07/16/21at 17:15; Start 07/16/21 at 17:15; Stop 07/16/21 at 17:16; Status DC Fentanyl Citrate (Fentanyl 2ml Vial) 100 mcg 1X ONCE IVP ; Start 07/16/21 at 18:45; Stop 07/16/21 at 18:46; Status DC Fentanyl Citrate 30 ml @ 0 mls/hr CONT PRN IV SEE PROTOCOL; Start 07/16/21 at 18:45; Status Cancel Ketamine HCl (Ketamine) 50 mg STK-MED ONCE .ROUTE ; Start 07/16/21 at 19:16; Stop 07/16/21 at 19:16; Status DC Fentanyl Citrate 30 ml @ 0 mls/hr CONT PRN IV SEE PROTOCOL Last administered on 07/17/21at 20:00; Start 07/16/21 at 19:44; Stop 07/18/21 at 19:37; Status DC Ketamine HCl (Ketamine) 65 mg 1X ONCE IV Last administered on 07/16/21at 19:25; Start 07/16/21 at 20:00; Stop 07/16/21 at 20:01; Status DC Sennosides (Senna) 17.2 mg PRN BID PRN PO CONSTIPATION; Start 07/16/21 at 20:30 Docusate Sodium (Colace) 100 mg PRN DAILY PRN PO HARD STOOLS; Start 07/16/21 at 20:30 Ondansetron HCl (Zofran) 4 mg PRN Q6HRS PRN IVP NAUSEA/VOMITING, 1st CHOICE; Start 07/16/21 at 20:30 Dextrose (Dextrose 50%-Water Syringe) 12.5 gm PRN Q15MIN PRN IV SEE COMMENTS; Start 07/16/21 at 20:30 Acetaminophen (Tylenol) 650 mg PRN Q4HRS PRN PO TEMP OVER 100.4F OR MILD PAIN; Start 07/16/21 at 20:30 Lorazepam (Ativan) 0.5 mg PRN Q6HRS PRN PO ANXIETY / AGITATION; Start 07/16/21 at 20:30; Stop 07/18/21 at 19:37; Status DC Lorazepam (Ativan Inj) 0.25 mg PRN Q4HRS PRN IV ANXIETY / AGITATION; Start 07/16/21 at 20:30 Prochlorperazine Edisylate (Compazine) 10 mg PRN Q6HRS PRN IV NAUSEA/VOMITING, 2nd CHOICE; Start 07/16/21 at 20:30 Diphenhydramine HCl (Benadryl) 25 mg PRN Q6HRS PRN IVP ITCHING; Start 07/16/21 at 20:30; Stop 07/18/21 at 19:37; Status DC Diphenhydramine HCl (Benadryl) 25 mg PRN Q6HRS PRN PO ITCHING; Start 07/16/21 at 20:30; Stop 07/18/21 at 19:37; Status DC Diphenhydramine HCl (Benadryl) 25 mg PRN QHS PRN PO INSOMNIA, 1st CHOICE; Start 07/16/21 at 20:30; Stop 07/18/21 at 19:37; Status DC Zolpidem Tartrate (Ambien) 2.5 mg PRN QHS PRN PO INSOMNIA, 2nd CHOICE; Start 07/16/21 at 20:30 Enoxaparin Sodium (Lovenox 40mg Syringe) 40 mg Q24H SQ Last administered on 07/20/21at 22:44; Start 07/16/21 at 21:00 Pantoprazole Sodium (PROTONIX VIAL for IV PUSH) 40 mg DAILYAC IVP Last administered on 07/20/21at 06:29; Start 07/17/21 at 07:30 Piperacillin Sod/ Tazobactam Sod (Zosyn Per Pharmacy) 1 each PRN DAILY PRN MC SEE COMMENTS; Start 07/17/21 at 11:45 Albuterol/ Ipratropium (Duoneb) 3 ml Q6HRS NEB Last administered on 07/19/21at 07:21; Start 07/17/21 at 12:00; Stop 07/19/21 at 10:44; Status DC Piperacillin Sod/ Tazobactam Sod 2.25 gm/Sodium Chloride 50 ml @ 100 mls/hr Q6HRS IV Last administered on 07/21/21at 06:03; Start 07/17/21 at 12:00 Methylprednisolone Sodium Succinate (SOLU-Medrol 40MG VIAL) 40 mg Q8HRS IV Last administered on 07/21/21at 06:03; Start 07/19/21 at 10:15 Furosemide (Lasix) 40 mg 1X ONCE IVP Last administered on 07/19/21at 10:52; Start 07/19/21 at 11:00; Stop 07/19/21 at 11:01; Status DC Albuterol/ Ipratropium (Duoneb) 3 ml Q4HRS W/A NEB Last administered on 07/20/21at 20:30; Start 07/19/21 at 14:00 Active Scripts Active Vitamin C (Ascorbic Acid) 500 Mg Tablet 1,000 Mg PO DAILY 30 Days Reported Duoneb 0.5-3(2.5) Mg/3 Ml (Albuterol/Ipratropium) 3 Ml Ampul.neb 3 Ml NEB Q6HRS Vitals/I & O Vital Sign - Last 24 Hours 07/20/21 07/20/21 07/20/21 07/20/21 09:00 11:17 12:00 16:00 Pulse 80 89 80 Resp 21 26 20 B/P (MAP) 125/69 (87) 141/81 (101) 140/75 (96) Pulse Ox 99 100 98 98 O2 Delivery Nasal Cannula BiPAP/CPAP Nasal Cannula Nasal Cannula O2 Flow Rate 2.0 2.0 2.0 07/20/21 07/20/21 07/20/21 07/21/21 16:02 20:00 20:15 00:00 Temp 98.8 98.6 98.8 98.6 Pulse 80 80 Resp 21 20 B/P (MAP) 127/77 (94) 158/83 (108) Pulse Ox 97 98 98 98 O2 Delivery Nasal Cannula Nasal Cannula Nasal Cannula Nasal Cannula O2 Flow Rate 2.0 2.0 2.0 2.0 07/21/21 04:00 Temp 98.8 98.8 Pulse 78 Resp 20 B/P (MAP) 130/78 (95) Pulse Ox 98 O2 Delivery Nasal Cannula O2 Flow Rate 2.0 Intake and Output 07/20/21 07/20/21 07/21/21 15:00 23:00 07:00 Output Total 320 ml 280 ml 100 ml Balance -320 ml -280 ml -100 ml Justicifation of Admission Dx: Justifications for Admission: Justification of Admission Dx: N/A HUSSAIN HOBSON MD Jul 21, 2021 08:32
[2021-07-21] MEDS: PANTOPRAZOLE IV PUSH 40 MG VIAL. IVP SCH (09:29)
--- NOTE | 2021-07-21 11:01 | PDOC ---
PULMONARY PROGRESS NOTES DATE: 07/21/21 TIME: 11:00 Subjective Patient extubated 07/18/2021. Currently on nasal cannula. Slightly confused. Vitals Vital Signs Date Time Temp Pulse Resp B/P (MAP) Pulse Ox O2 Delivery O2 Flow Rate FiO2 07/21/21 08:36 Nasal Cannula 2.0 07/21/21 08:00 97.9 83 18 145/80 (101) 95 97.9 General: Alert, No acute distress Lungs: Wheezing (Resolved.) Cardiovascular: S1 Extremities: No Edema Skin: Warm Labs Laboratory Tests Test 07/20/21 04:00 07/21/21 08:16 White Blood Count 3.7 x10^3/uL (4.0-11.0) Red Blood Count 3.26 x10^6/uL (3.50-5.40) Hemoglobin 9.5 g/dL (12.0-15.5) Hematocrit 29.2 % (36.0-47.0) Mean Corpuscular Volume 90 fL (79-100) Mean Corpuscular Hemoglobin 29 pg (25-35) Mean Corpuscular Hemoglobin Concent 33 g/dL (31-37) Red Cell Distribution Width 15.5 % (11.5-14.5) Platelet Count 240 x10^3/uL (140-400) Neutrophils (%) (Auto) 90 % (31-73) Lymphocytes (%) (Auto) 9 % (24-48) Monocytes (%) (Auto) 1 % (0-9) Eosinophils (%) (Auto) 0 % (0-3) Basophils (%) (Auto) 0 % (0-3) Neutrophils # (Auto) 3.3 x10^3/uL (1.8-7.7) Lymphocytes # (Auto) 0.3 x10^3/uL (1.0-4.8) Monocytes # (Auto) 0.0 x10^3/uL (0.0-1.1) Eosinophils # (Auto) 0.0 x10^3/uL (0.0-0.7) Basophils # (Auto) 0.0 x10^3/uL (0.0-0.2) Glucose (Fingerstick) 75 mg/dL (70-99) Laboratory Tests Test 07/21/21 08:16 Glucose (Fingerstick) 75 mg/dL (70-99) Medications Active Scripts Medications Dose Route/Sig Max Daily Dose Days Date Category Duoneb 0.5-3(2.5) Mg/3 Ml (Albuterol/Ipratropium) 3 Ml Ampul.neb 3 Ml NEB Q6HRS 07/16/21 Reported Vitamin C (Ascorbic Acid) 500 Mg Tablet 1,000 Mg PO DAILY 30 06/26/21 Rx Comments Chest x-ray reviewed 07/19/2021. Mild patchy interstitial infiltrate Chest x-ray reviewed 07/18/2021. No pneumothorax seen. Vascular markings improved. Impression . 1. Acute respiratory failure secondary to acute encephalopathy. Etiology not so obvious. Possible seizure. She had a CT angiogram and there was no significant large vessel occlusion. No significant stenosis of the cervical, carotid or vertebral arteries. Mental status improved. Extubated 07/18/2021 2. Abnormal chest x-ray 3. Moderate to severe protein-calorie malnutrition. 4. Bronchospasm. Cannot exclude CHF contributing to bronchospasm. Now resolved. 5. Possible pneumonia Plan . RECOMMENDATIONS: 1. Patient is clinically improved. She is extubated. Wheezing improved. Continue with present bronchodilator./ steroids with taper. 2. Empiric antibiotics 3. DVT prophylaxis with Lovenox. 4. Obtain echocardiogram. 5. Avoid any benzos. 6. Discussed with RN 7. Follow speech recommendations. 8. Follow neurology recommendations. NI MARLEY MD Jul 21, 2021 11:01
--- NOTE | 2021-07-21 14:17 | PDOC ---
[employer] PROGRESS NOTE Date of Service DOS: DATE: 07/21/21 TIME: 14:13 Chief Complaint Chief Complaint Acute respiratory failure with hypoxia Aspiration pneumonia HAP - gram-negative or gram-positive organism AMS History COPD History of Present Illness History of Present Illness 07/18: Afebrile. Extubated today, currently breathing on 4 L nasal cannula. Repeat CXR today shows increasing left basilar opacities; will continue Zosyn. Discussed with patient daughter by phone (DPOA), who states that patient would not want to be alive on a ventilator or have chest compressions performed again. Patient is a DNR going forward. Critical care time 30 minutes spent reviewing charts, reviewing labs, reviewing imaging, and discussion with RN. 07/19: Afebrile, on 3 L O2 cannula. CRP slightly high at 13.6. She is hyperglycemic today. We will continue Solu-Medrol and Zosyn. Will order MRSA PCR due to worsening pneumonia seen on chest x-ray. Patient is alert and conversive, but still confused. Family at bedside, discussed in great lengths DNR versus DNI, and CODE STATUS. Patient and DPOA are still agreeable to DNR. Advance Care Planning: Total time spent [id number] with patient 16 minutes in discussion with goals of care, comfort care, end-of-life care, pain management, code status; patient names her daughter as surrogate decision-maker. 07/20: Patient seen and evaluated in ICU. Breathing on BiPAP this morning. She has no complaints, still pleasantly demented. CXR from yesterday shows improved aeration of the left lower lobe with decreased opacity, however there is development of new mild basilar right lower lobe atelectasis/infiltrate. Continue Zosyn. She is stable to transfer out of ICU. Discussed with RN. 07/21: Patient evaluated with family at bedside. She has been moved to the medical floors. Currently on 2 L nasal cannula. We discussed patient's swallowing function and speech therapy recommendations. Anticipate discharge in the hospital tomorrow or the next day barring her clinical course. Pleasantly demented. She has questions about her levothyroxine. Per RN, she has no prescription for levothyroxine at her pharmacy. PT recommending SNU. Vitals/I&O Vitals/I&O: Vital Signs Date Time Temp Pulse Resp B/P (MAP) Pulse Ox O2 Delivery O2 Flow Rate FiO2 07/21/21 12:19 97 Nasal Cannula 2.0 07/21/21 12:00 97.9 83 18 147/88 (107) 97.9 I & O 07/20/21 07/20/21 07/21/21 15:00 23:00 07:00 Output Total 320 ml 280 ml 100 ml Balance -320 ml -280 ml -100 ml Physical Exam General: Alert, Cooperative, No acute distress Heart: Regular rate Lungs: Wheezing (Resolved.) Abdomen: Soft Extremities: No cyanosis Skin: No rashes Labs Labs: Laboratory Tests Test 07/21/21 08:16 07/21/21 11:21 Glucose (Fingerstick) 75 mg/dL (70-99) 111 mg/dL (70-99) Assessment and Plan Assessmemt and Plan Problems Medical Problems: (1) AMS (altered mental status) Status: Acute (2) Respiratory failure Status: Acute Comment Review of Relevant I have reviewed the following items chun (where applicable) has been applied. Justifications for Admission Other Justification Respiratory failure DOMINGO ROMERO MD Jul 21, 2021 14:17
[2021-07-21] MEDS: IV NORMAL SALINE 1000ML BAG 1,000 ML IV SCH (16:11)
[2021-07-21] MEDS: ENOXAPARIN 40 MG/0.4 ML SYRINGE. SQ SCH (21:25)
[2021-07-22 03:00] VITALS: BP 124/70
[2021-07-22] MEDS: IV NORMAL SALINE 1000ML BAG 1,000 ML IV SCH ×3 (06:17→21:31)
[2021-07-22] MEDS: PIPERACILLIN/TAZOBACTAM 2.25 GM in IV NORMAL SALINE 50ML 50 ML IV SCH ×3 (06:18→12:33)
[2021-07-22] MEDS: IPRATRPIUM/ALBUTEROL 0.5/2.5MG 3 ML NEBU. NEB SCH ×4 (07:31→20:48)
[2021-07-22 07:59] LABS: BASO % 0 % (0-3); EOS % 0 % (0-3); HEMATOCRIT 33.6 % (36.0-47.0); HEMOGLOBIN 10.8 g/dL (12.0-15.5); LYMPH # 0.4 x10^3/uL (1.0-4.8); LYMPH % 5 % (24-48); MEAN CORPUSCULAR HEMOGLOBIN 29 pg (25-35); MEAN CORPUSCULAR HGB CONC 32 g/dL (31-37); MEAN CORPUSCULAR VOLUME 90 fL (79-100); MONO # 0.2 x10^3/uL (0.0-1.1); MONO % 3 % (0-9); NEUT # 6.3 x10^3/uL (1.8-7.7); NEUT % 91 % (31-73); PLATELET COUNT 294 x10^3/uL (140-400); RED BLOOD COUNT 3.75 x10^6/uL (3.50-5.40); RED CELL DISTRIBUTION WIDTH 15.7 % (11.5-14.5); WHITE BLOOD COUNT 6.9 x10^3/uL (4.0-11.0)
[2021-07-22 08:00] VITALS: BP 145/91
--- NOTE | 2021-07-22 08:13 | PDOC ---
PULMONARY PROGRESS NOTES DATE: 07/22/21 TIME: 08:13 Subjective Patient extubated 07/18/2021. On room air, not in pain, not short of air Vitals Vital Signs Date Time Temp Pulse Resp B/P (MAP) Pulse Ox O2 Delivery O2 Flow Rate FiO2 07/22/21 07:32 93 Nasal Cannula 2.0 07/22/21 03:00 98.2 74 18 124/70 (88) 98.2 ROS: No Nausea, No Chest Pain, No Abdominal Pain, No Increase Cough General: Alert, No acute distress Lungs: Wheezing (Resolved.) Cardiovascular: S1 Extremities: No Edema Skin: Warm Labs Laboratory Tests Test 07/20/21 16:17 07/21/21 08:16 07/21/21 11:21 07/22/21 06:30 Nasal Screen MRSA (PCR) Negative (NEGATIVE) Glucose (Fingerstick) 75 mg/dL (70-99) 111 mg/dL (70-99) White Blood Count 6.9 x10^3/uL (4.0-11.0) Red Blood Count 3.75 x10^6/uL (3.50-5.40) Hemoglobin 10.8 g/dL (12.0-15.5) Hematocrit 33.6 % (36.0-47.0) Mean Corpuscular Volume 90 fL (79-100) Mean Corpuscular Hemoglobin 29 pg (25-35) Mean Corpuscular Hemoglobin Concent 32 g/dL (31-37) Red Cell Distribution Width 15.7 % (11.5-14.5) Platelet Count 294 x10^3/uL (140-400) Neutrophils (%) (Auto) 91 % (31-73) Lymphocytes (%) (Auto) 5 % (24-48) Monocytes (%) (Auto) 3 % (0-9) Eosinophils (%) (Auto) 0 % (0-3) Basophils (%) (Auto) 0 % (0-3) Neutrophils # (Auto) 6.3 x10^3/uL (1.8-7.7) Lymphocytes # (Auto) 0.4 x10^3/uL (1.0-4.8) Monocytes # (Auto) 0.2 x10^3/uL (0.0-1.1) Eosinophils # (Auto) 0.0 x10^3/uL (0.0-0.7) Basophils # (Auto) 0.0 x10^3/uL (0.0-0.2) Laboratory Tests Test 07/21/21 08:16 07/21/21 11:21 07/22/21 06:30 Glucose (Fingerstick) 75 mg/dL (70-99) 111 mg/dL (70-99) White Blood Count 6.9 x10^3/uL (4.0-11.0) Red Blood Count 3.75 x10^6/uL (3.50-5.40) Hemoglobin 10.8 g/dL (12.0-15.5) Hematocrit 33.6 % (36.0-47.0) Mean Corpuscular Volume 90 fL (79-100) Mean Corpuscular Hemoglobin 29 pg (25-35) Mean Corpuscular Hemoglobin Concent 32 g/dL (31-37) Red Cell Distribution Width 15.7 % (11.5-14.5) Platelet Count 294 x10^3/uL (140-400) Neutrophils (%) (Auto) 91 % (31-73) Lymphocytes (%) (Auto) 5 % (24-48) Monocytes (%) (Auto) 3 % (0-9) Eosinophils (%) (Auto) 0 % (0-3) Basophils (%) (Auto) 0 % (0-3) Neutrophils # (Auto) 6.3 x10^3/uL (1.8-7.7) Lymphocytes # (Auto) 0.4 x10^3/uL (1.0-4.8) Monocytes # (Auto) 0.2 x10^3/uL (0.0-1.1) Eosinophils # (Auto) 0.0 x10^3/uL (0.0-0.7) Basophils # (Auto) 0.0 x10^3/uL (0.0-0.2) Medications Active Scripts Medications Dose Route/Sig Max Daily Dose Days Date Category Duoneb 0.5-3(2.5) Mg/3 Ml (Albuterol/Ipratropium) 3 Ml Ampul.neb 3 Ml NEB Q6HRS 07/16/21 Reported Vitamin C (Ascorbic Acid) 500 Mg Tablet 1,000 Mg PO DAILY 30 06/26/21 Rx Comments Chest x-ray reviewed 07/19/2021. Mild patchy interstitial infiltrate Chest x-ray reviewed 07/18/2021. No pneumothorax seen. Vascular markings improved. Impression . 1. Acute respiratory failure secondary to acute encephalopathy. Etiology not so obvious. Possible seizure. She had a CT angiogram and there was no significant large vessel occlusion. No significant stenosis of the cervical, carotid or vertebral arteries. Mental status improved. Extubated 07/18/2021 2. Abnormal chest x-ray 3. Moderate to severe protein-calorie malnutrition. 4. Bronchospasm. Cannot exclude CHF contributing to bronchospasm. Now resolved. 5. Possible pneumonia Plan . Updated 07/22 Off of oxygen Respiratory status compensated Discontinue antibiotics RECOMMENDATIONS: 1. Patient is clinically improved. She is extubated. Wheezing improved. Continue with present bronchodilator./ steroids with taper. 2. Empiric antibiotics 3. DVT prophylaxis with Lovenox. 4. Obtain echocardiogram. 5. Avoid any benzos. 6. Discussed with RN 7. Follow speech recommendations. 8. Follow neurology recommendations. CADEN VASQUEZ MD Jul 22, 2021 08:13
[2021-07-22 08:30] LABS: CALCIUM 8.6 mg/dL (8.5-10.1); CREATININE 0.8 mg/dL (0.6-1.0); GFR 67.7
[2021-07-22 08:34] LABS: POTASSIUM 2.8 mmol/L (3.5-5.1)
[2021-07-22] MEDS: PANTOPRAZOLE IV PUSH 40 MG VIAL. IVP SCH (09:22)
[2021-07-22] MEDS: methylPREDNISolone SOD SUCC PF 40 MG/ML VIAL. IV SCH (09:23)
--- NOTE | 2021-07-22 10:17 | PDOC ---
[facility] PROGRESS NOTE Date of Service DOS: DATE: 07/22/21 TIME: 10:15 Chief Complaint Chief Complaint Acute respiratory failure with hypoxia (extubated 07/18/2021) Aspiration pneumonia HAP - gram-negative or gram-positive organism AMS History COPD History of Present Illness History of Present Illness 07/22/2021 Patient seen and examined She is still pleasantly confused Discussed with RN Chart reviewed 07/18: Afebrile. Extubated today, currently breathing on 4 L nasal cannula. Repeat CXR today shows increasing left basilar opacities; will continue Zosyn. Discussed with patient daughter by phone (DPOA), who states that patient would not want to be alive on a ventilator or have chest compressions performed again. Patient is a DNR going forward. Critical care time 30 minutes spent reviewing charts, reviewing labs, reviewing imaging, and discussion with RN. 07/19: Afebrile, on 3 L O2 cannula. CRP slightly high at 13.6. She is hyperglycemic today. We will continue Solu-Medrol and Zosyn. Will order MRSA PCR due to worsening pneumonia seen on chest x-ray. Patient is alert and conversive, but still confused. Family at bedside, discussed in great lengths DNR versus DNI, and CODE STATUS. Patient and DPOA are still agreeable to DNR. Advance Care Planning: Total time spent [id number] with patient 16 minutes in discussion with goals of care, comfort care, end-of-life care, pain management, code status; patient names her daughter as surrogate decision-maker. 07/20: Patient seen and evaluated in ICU. Breathing on BiPAP this morning. She has no complaints, still pleasantly demented. CXR from yesterday shows improved aeration of the left lower lobe with decreased opacity, however there is development of new mild basilar right lower lobe atelectasis/infiltrate. Continue Zosyn. She is stable to transfer out of ICU. Discussed with RN. 07/21: Patient evaluated with family at bedside. She has been moved to the medical floors. Currently on 2 L nasal cannula. We discussed patient's swallowing function and speech therapy recommendations. Anticipate discharge in the hospital tomorrow or the next day barring her clinical course. Pleasantly demented. She has questions about her levothyroxine. Per RN, she has no prescription for levothyroxine at her pharmacy. PT recommending SNU. Vitals/I&O Vitals/I&O: Vital Signs Date Time Temp Pulse Resp B/P (MAP) Pulse Ox O2 Delivery O2 Flow Rate FiO2 07/22/21 08:00 97.8 82 18 145/91 (109) 96 Nasal Cannula 2.0 97.8 I & O 07/21/21 07/21/21 07/22/21 15:00 23:00 07:00 Intake Total 720 ml 680 ml 500 ml Output Total 100 ml 1000 ml Balance 620 ml 680 ml -500 ml Physical Exam General: Alert, Cooperative, No acute distress Heart: Regular rate Lungs: Wheezing (Resolved.) Abdomen: Soft Extremities: No cyanosis Skin: No rashes Labs Labs: Laboratory Tests Test 07/21/21 11:21 07/22/21 06:30 Glucose (Fingerstick) 111 mg/dL (70-99) White Blood Count 6.9 x10^3/uL (4.0-11.0) Red Blood Count 3.75 x10^6/uL (3.50-5.40) Hemoglobin 10.8 g/dL (12.0-15.5) Hematocrit 33.6 % (36.0-47.0) Mean Corpuscular Volume 90 fL (79-100) Mean Corpuscular Hemoglobin 29 pg (25-35) Mean Corpuscular Hemoglobin Concent 32 g/dL (31-37) Red Cell Distribution Width 15.7 % (11.5-14.5) Platelet Count 294 x10^3/uL (140-400) Neutrophils (%) (Auto) 91 % (31-73) Lymphocytes (%) (Auto) 5 % (24-48) Monocytes (%) (Auto) 3 % (0-9) Eosinophils (%) (Auto) 0 % (0-3) Basophils (%) (Auto) 0 % (0-3) Neutrophils # (Auto) 6.3 x10^3/uL (1.8-7.7) Lymphocytes # (Auto) 0.4 x10^3/uL (1.0-4.8) Monocytes # (Auto) 0.2 x10^3/uL (0.0-1.1) Eosinophils # (Auto) 0.0 x10^3/uL (0.0-0.7) Basophils # (Auto) 0.0 x10^3/uL (0.0-0.2) Sodium Level 140 mmol/L (136-145) Potassium Level 2.8 mmol/L (3.5-5.1) Chloride Level 101 mmol/L (98-107) Carbon Dioxide Level 33 mmol/L (21-32) Anion Gap 6 (6-14) Blood Urea Nitrogen 12 mg/dL (7-20) Creatinine 0.8 mg/dL (0.6-1.0) Estimated GFR (Cockcroft-Gault) 67.7 Glucose Level 108 mg/dL (70-99) Calcium Level 8.6 mg/dL (8.5-10.1) Procalcitonin < 0.10 ng/mL (0.00-0.10) Assessment and Plan Assessmemt and Plan Problems Medical Problems: (1) AMS (altered mental status) Status: Acute (2) Respiratory failure Status: Acute Acute respiratory failure with hypoxia (extubated 07/18/2021) Aspiration pneumonia HAP - gram-negative or gram-positive organism AMS History COPD Plan IV antibiotics O2 per nasal cannula IV steroids Beta agonist Appreciate subspecialist input PT OT DVT prophylaxis Full code Discharge disposition pending Comment Review of Relevant I have reviewed the following items chun (where applicable) has been applied. Medications: Current Medications Medications (Trade) Dose Ordered Sig/Nikkie Route PRN Reason Start Time Stop Time Status Last Admin Dose Admin Methylprednisolone Sodium Succinate (SOLU-Medrol 40MG VIAL) 40 mg BID IV 07/21/21 21:00 07/22/21 09:23 Sodium Chloride 1,000 ml @ 100 mls/hr Q10H IV 07/21/21 16:15 07/22/21 06:17 Justifications for Admission Other Justification Respiratory failure HENRRY YE III DO Jul 22, 2021 10:17
[2021-07-22] MEDS ORDERED: POTASSIUM CHLORIDE 20 MEQ TABLET.ER. PO ONE (10:30)
[2021-07-22 12:00] VITALS: BP 132/78
--- NOTE | 2021-07-22 15:41 | NUR ---
SS following up with discharge planning. SS reviewed pt chart and discussed with pt RN. Pt is halfway[facility] of [facility] nursing from [facility], ; fax [phone]. Prior to skilled placement pt was from home. Pt is currently requiring oxygen at two liters nasal canula. PT/OT recommended halfway unit. PO diet. Pt's daughter, Che, , requesting that pt return to [facility] at discharge. Pt is able to return when ready. COVID19 PCR requested by placement. Pt's RN notified. SS will continue to follow for discharge planning.
[2021-07-22 16:00] VITALS: BP 131/66
[2021-07-22 19:00] VITALS: BP 121/71
[2021-07-22] MEDS: LACTOBACILLUS RHAMNOSUS GG 1 CAPSULE. PO SCH (21:31)
[2021-07-22] MEDS: ENOXAPARIN 40 MG/0.4 ML SYRINGE. SQ SCH (21:31)
[2021-07-22 23:00] VITALS: BP 123/62
[2021-07-23 03:00] VITALS: BP 115/61
[2021-07-23] MEDS: IPRATRPIUM/ALBUTEROL 0.5/2.5MG 3 ML NEBU. NEB SCH ×5 (07:31→21:07)
[2021-07-23 08:00] VITALS: BP 148/73
[2021-07-23] MEDS: PANTOPRAZOLE IV PUSH 40 MG VIAL. IVP SCH (08:24)
[2021-07-23] MEDS: LACTOBACILLUS RHAMNOSUS GG 1 CAPSULE. PO SCH ×2 (08:25→20:34)
[2021-07-23] MEDS: IV NORMAL SALINE 1000ML BAG 1,000 ML IV SCH ×2 (08:25→18:34)
--- NOTE | 2021-07-23 08:50 | PDOC ---
PROGRESS NOTES Date of Service DATE: 07/23/21 TIME: 08:49 Assessment Problems Medical Problems: (1) AMS (altered mental status) Status: Acute (2) Respiratory failure Status: Acute Respiratory event, a seizure is possible. There is no evidence that she had a stroke. Dysphagia, she passed her swallow evaluation Plan Okay for discharge No need for additional neurological studies such as MRI of the brain or electroencephalogram Hold on starting empiric anticonvulsants Subjective No complaints Objective Vital Signs Date Time Temp Pulse Resp B/P (MAP) Pulse Ox O2 Delivery O2 Flow Rate FiO2 07/23/21 07:31 95 Nasal Cannula 1.5 07/23/21 03:00 98.0 57 18 115/61 (79) 98.0 Intake and Output 07/23/21 07:00 Intake Total 1140 ml Output Total 1100 ml Balance 40 ml Intake Oral 1140 ml Output Urine Total 1100 ml PHYSICAL EXAM Alert, follows commands, knows name and location, date PERRL. EOMI. CN: no focal findings. Muscle tone: normal. Muscle strength: 4/5 DTR: 1+ Plantar reflex: Flexor Gait: not examined in bed. Sensory exam: no abnormal findings. No cerebellar signs elicited. Review of Relevant I have reviewed the following items chun (where applicable) has been applied. Labs Laboratory Tests Test 07/21/21 11:21 07/22/21 06:30 Glucose (Fingerstick) 111 mg/dL (70-99) White Blood Count 6.9 x10^3/uL (4.0-11.0) Red Blood Count 3.75 x10^6/uL (3.50-5.40) Hemoglobin 10.8 g/dL (12.0-15.5) Hematocrit 33.6 % (36.0-47.0) Mean Corpuscular Volume 90 fL (79-100) Mean Corpuscular Hemoglobin 29 pg (25-35) Mean Corpuscular Hemoglobin Concent 32 g/dL (31-37) Red Cell Distribution Width 15.7 % (11.5-14.5) Platelet Count 294 x10^3/uL (140-400) Neutrophils (%) (Auto) 91 % (31-73) Lymphocytes (%) (Auto) 5 % (24-48) Monocytes (%) (Auto) 3 % (0-9) Eosinophils (%) (Auto) 0 % (0-3) Basophils (%) (Auto) 0 % (0-3) Neutrophils # (Auto) 6.3 x10^3/uL (1.8-7.7) Lymphocytes # (Auto) 0.4 x10^3/uL (1.0-4.8) Monocytes # (Auto) 0.2 x10^3/uL (0.0-1.1) Eosinophils # (Auto) 0.0 x10^3/uL (0.0-0.7) Basophils # (Auto) 0.0 x10^3/uL (0.0-0.2) Sodium Level 140 mmol/L (136-145) Potassium Level 2.8 mmol/L (3.5-5.1) Chloride Level 101 mmol/L (98-107) Carbon Dioxide Level 33 mmol/L (21-32) Anion Gap 6 (6-14) Blood Urea Nitrogen 12 mg/dL (7-20) Creatinine 0.8 mg/dL (0.6-1.0) Estimated GFR (Cockcroft-Gault) 67.7 Glucose Level 108 mg/dL (70-99) Calcium Level 8.6 mg/dL (8.5-10.1) Procalcitonin < 0.10 ng/mL (0.00-0.10) Medications Current Medications Rocuronium [place] (Zemuron) 50 mg 1X ONCE IV Last administered on 07/16/21at 18:33; Start 07/16/21 at 16:00; Stop 07/16/21 at 16:03; Status DC Etomidate (Amidate) 18 mg 1X ONCE IV Last administered on 07/16/21at 18:32; Start 07/16/21 at 16:00; Stop 07/16/21 at 16:03; Status DC Fentanyl Citrate (Fentanyl 2ml Vial) 50 mcg 1X ONCE IVP ; Start 07/16/21 at 16:00; Stop 07/16/21 at 16:03; Status DC Propofol 100 ml @ 1.68 mls/hr CONT PRN IV PER PROTOCOL Last administered on 07/17/21at 07:42; Start 07/16/21 at 16:00; Stop 07/18/21 at 19:37; Status DC Iohexol (Omnipaque 350 Mg/ml) 75 ml 1X ONCE IV Last administered on 07/16/21at 17:15; Start 07/16/21 at 17:15; Stop 07/16/21 at 17:16; Status DC Fentanyl Citrate (Fentanyl 2ml Vial) 100 mcg 1X ONCE IVP ; Start 07/16/21 at 18:45; Stop 07/16/21 at 18:46; Status DC Fentanyl Citrate 30 ml @ 0 mls/hr CONT PRN IV SEE PROTOCOL; Start 07/16/21 at 18:45; Status Cancel Ketamine HCl (Ketamine) 50 mg STK-MED ONCE .ROUTE ; Start 07/16/21 at 19:16; Stop 07/16/21 at 19:16; Status DC Fentanyl Citrate 30 ml @ 0 mls/hr CONT PRN IV SEE PROTOCOL Last administered on 07/17/21at 20:00; Start 07/16/21 at 19:44; Stop 07/18/21 at 19:37; Status DC Ketamine HCl (Ketamine) 65 mg 1X ONCE IV Last administered on 07/16/21at 19:25; Start 07/16/21 at 20:00; Stop 07/16/21 at 20:01; Status DC Sennosides (Senna) 17.2 mg PRN BID PRN PO CONSTIPATION; Start 07/16/21 at 20:30 Docusate Sodium (Colace) 100 mg PRN DAILY PRN PO HARD STOOLS; Start 07/16/21 at 20:30 Ondansetron HCl (Zofran) 4 mg PRN Q6HRS PRN IVP NAUSEA/VOMITING, 1st CHOICE; Start 07/16/21 at 20:30 Dextrose (Dextrose 50%-Water Syringe) 12.5 gm PRN Q15MIN PRN IV SEE COMMENTS; Start 07/16/21 at 20:30 Acetaminophen (Tylenol) 650 mg PRN Q4HRS PRN PO TEMP OVER 100.4F OR MILD PAIN; Start 07/16/21 at 20:30 Lorazepam (Ativan) 0.5 mg PRN Q6HRS PRN PO ANXIETY / AGITATION; Start 07/16/21 at 20:30; Stop 07/18/21 at 19:37; Status DC Lorazepam (Ativan Inj) 0.25 mg PRN Q4HRS PRN IV ANXIETY / AGITATION; Start 07/16/21 at 20:30 Prochlorperazine Edisylate (Compazine) 10 mg PRN Q6HRS PRN IV NAUSEA/VOMITING, 2nd CHOICE; Start 07/16/21 at 20:30 Diphenhydramine HCl (Benadryl) 25 mg PRN Q6HRS PRN IVP ITCHING; Start 07/16/21 at 20:30; Stop 07/18/21 at 19:37; Status DC Diphenhydramine HCl (Benadryl) 25 mg PRN Q6HRS PRN PO ITCHING; Start 07/16/21 at 20:30; Stop 07/18/21 at 19:37; Status DC Diphenhydramine HCl (Benadryl) 25 mg PRN QHS PRN PO INSOMNIA, 1st CHOICE; Start 07/16/21 at 20:30; Stop 07/18/21 at 19:37; Status DC Zolpidem Tartrate (Ambien) 2.5 mg PRN QHS PRN PO INSOMNIA, 2nd CHOICE; Start 07/16/21 at 20:30 Enoxaparin Sodium (Lovenox 40mg Syringe) 40 mg Q24H SQ Last administered on 07/22/21at 21:31; Start 07/16/21 at 21:00 Pantoprazole Sodium (PROTONIX VIAL for IV PUSH) 40 mg DAILYAC IVP Last administered on 07/23/21at 08:24; Start 07/17/21 at 07:30 Piperacillin Sod/ Tazobactam Sod (Zosyn Per Pharmacy) 1 each PRN DAILY PRN MC SEE COMMENTS; Start 07/17/21 at 11:45; Stop 07/22/21 at 14:06; Status DC Albuterol/ Ipratropium (Duoneb) 3 ml Q6HRS NEB Last administered on 07/19/21at 07:21; Start 07/17/21 at 12:00; Stop 07/19/21 at 10:44; Status DC Piperacillin Sod/ Tazobactam Sod 2.25 gm/Sodium Chloride 50 ml @ 100 mls/hr Q6HRS IV Last administered on 07/22/21at 12:33; Start 07/17/21 at 12:00; Stop 07/22/21 at 14:05; Status DC Methylprednisolone Sodium Succinate (SOLU-Medrol 40MG VIAL) 40 mg Q8HRS IV Last administered on 07/21/21at 06:03; Start 07/19/21 at 10:15; Stop 07/21/21 at 11:02; Status DC Furosemide (Lasix) 40 mg 1X ONCE IVP Last administered on 07/19/21at 10:52; Start 07/19/21 at 11:00; Stop 07/19/21 at 11:01; Status DC Albuterol/ Ipratropium (Duoneb) 3 ml Q4HRS W/A NEB Last administered on 07/23/21at 07:31; Start 07/19/21 at 14:00 Methylprednisolone Sodium Succinate (SOLU-Medrol 40MG VIAL) 40 mg BID IV Last administered on 07/22/21at 09:23; Start 07/21/21 at 21:00; Stop 07/22/21 at 14:05; Status DC Sodium Chloride 1,000 ml @ 100 mls/hr Q10H IV Last administered on 07/23/21at 08:25; Start 07/21/21 at 16:15 Potassium Chloride (Klor-Con) 40 meq 1X ONCE PO Last administered on 07/22/21at 12:00; Start 07/22/21 at 10:30; Stop 07/22/21 at 10:31; Status DC Lactobacillus Rhamnosus (Culturelle) 1 cap BID PO Last administered on 07/23/21 at 08:25; Start 07/22/21 at 21:00 Active Scripts Active Vitamin C (Ascorbic Acid) 500 Mg Tablet 1,000 Mg PO DAILY 30 Days Reported Duoneb 0.5-3(2.5) Mg/3 Ml (Albuterol/Ipratropium) 3 Ml Ampul.neb 3 Ml NEB Q6HRS Vitals/I & O Vital Sign - Last 24 Hours 07/22/21 07/22/21 07/22/21 07/22/21 11:20 12:00 15:24 16:00 Temp 97.5 98.2 97.5 98.2 Pulse 68 72 Resp 24 24 B/P (MAP) 132/78 (96) 131/66 (87) Pulse Ox 100 95 97 O2 Delivery Nasal Cannula Nasal Cannula Nasal Cannula Nasal Cannula O2 Flow Rate 2.0 2.0 2.0 2.0 07/22/21 07/22/21 07/22/21 07/22/21 19:00 20:15 20:50 23:00 Temp 98.2 97.5 98.2 97.5 Pulse 72 60 Resp 18 18 B/P (MAP) 121/71 (88) 123/62 (82) Pulse Ox 96 99 92 O2 Delivery Nasal Cannula Nasal Cannula Nasal Cannula Nasal Cannula O2 Flow Rate 2.0 2.0 2.0 2.0 07/23/21 07/23/21 03:00 07:31 Temp 98.0 98.0 Pulse 57 Resp 18 B/P (MAP) 115/61 (79) Pulse Ox 95 95 O2 Delivery Nasal Cannula Nasal Cannula O2 Flow Rate 2.0 1.5 Intake and Output 07/22/21 07/22/21 07/23/21 15:00 23:00 07:00 Intake Total 600 ml 440 ml 100 ml Output Total 1100 ml Balance 600 ml -660 ml 100 ml Justicifation of Admission Dx: Justifications for Admission: Justification of Admission Dx: N/A HUSSAIN HOBSON MD Jul 23, 2021 08:50
[2021-07-23] MEDS ORDERED: METH4TAB2 PO (08:52)
[2021-07-23] MEDS ORDERED: AMOX1TAB58 PO (08:52)
--- NOTE | 2021-07-23 08:53 | SNU/HH DC ---
DISCHARGE ORDERS DISCHARGE INFORMATION: FINAL DIAGNOSIS Problems Medical Problems: (1) AMS (altered mental status) Status: Acute (2) Respiratory failure Status: Acute CONDITION ON DISCHARGE: Stable CODE STATUS: Code Status: DNR/DNI PRISON: SNF STAY <30 DAYS: Yes HOSPICE: HOSPICE: Yes HOSPICE EVAL & TREAT: Yes LTAC: ADMIT TO LTAC: Yes POST DISCHARGE ORDERS: ACTIVITY ORDERS: Activity as tolerated WEIGHT BEARING STATUS: As tolerated DIET AFTER DISCHARGE: Cardiac CHECKS AFTER DISCHARGE: CHECKS AFTER DISCHARGE: Check blood press - daily, Weigh Yourself Daily FOLLOW-UP: LAB ORDERS FOR FOLLOW-UP: CBC, CMP TREATMENT/EQUIPMENT ORDERS: Physical Therapy For: Evalulation/Treatment Occupational Therapy For: Evaluation/Treatment DISCHARGE MEDICATIONS: Home Meds Active Scripts Methylprednisolone (MEDROL) 4 Mg Tab.ds.pk, 1 PKG PO UD for ., #1 PKG Prov:CASTLE,NIAL K III DO 07/23/21 Amoxicillin/Potassium Clav (AUGMENTIN 500-125 TABLET) 1 Each Tablet, 1 TAB PO BID for . for 7 Days, #14 TAB 0 Refills Prov:CASTLE,NIAL K III DO 07/23/21 Ascorbic Acid (VITAMIN C) 500 Mg Tablet, 1000 MG PO DAILY for supplement for 30 Days, #60 TAB Prov:SERGIO DE LEÓN MD 06/26/21 Reported Medications Ipratropium/Albuterol Sulfate (DUONEB 0.5-3(2.5) MG/3 ML) 3 Ml Ampul.neb, 3 ML NEB Q6HRS for COPD, EACH 07/16/21 CASTLENIAL K III DO Jul 23, 2021 08:53
--- NOTE | 2021-07-23 09:45 | PDOC ---
PULMONARY PROGRESS NOTES DATE: 07/23/21 TIME: 09:44 Subjective Patient sitting up in a chair on oxygen per nasal cannula Patient extubated 07/18/2021. Vitals Vital Signs Date Time Temp Pulse Resp B/P (MAP) Pulse Ox O2 Delivery O2 Flow Rate FiO2 07/23/21 07:31 95 Nasal Cannula 1.5 07/23/21 03:00 98.0 57 18 115/61 (79) 98.0 ROS: No Nausea, No Chest Pain, No Abdominal Pain, No Increase Cough General: Alert, No acute distress Lungs: Wheezing (Resolved.) Cardiovascular: S1 Extremities: No Edema Skin: Warm Labs Laboratory Tests Test 07/21/21 11:21 07/22/21 06:30 Glucose (Fingerstick) 111 mg/dL (70-99) White Blood Count 6.9 x10^3/uL (4.0-11.0) Red Blood Count 3.75 x10^6/uL (3.50-5.40) Hemoglobin 10.8 g/dL (12.0-15.5) Hematocrit 33.6 % (36.0-47.0) Mean Corpuscular Volume 90 fL (79-100) Mean Corpuscular Hemoglobin 29 pg (25-35) Mean Corpuscular Hemoglobin Concent 32 g/dL (31-37) Red Cell Distribution Width 15.7 % (11.5-14.5) Platelet Count 294 x10^3/uL (140-400) Neutrophils (%) (Auto) 91 % (31-73) Lymphocytes (%) (Auto) 5 % (24-48) Monocytes (%) (Auto) 3 % (0-9) Eosinophils (%) (Auto) 0 % (0-3) Basophils (%) (Auto) 0 % (0-3) Neutrophils # (Auto) 6.3 x10^3/uL (1.8-7.7) Lymphocytes # (Auto) 0.4 x10^3/uL (1.0-4.8) Monocytes # (Auto) 0.2 x10^3/uL (0.0-1.1) Eosinophils # (Auto) 0.0 x10^3/uL (0.0-0.7) Basophils # (Auto) 0.0 x10^3/uL (0.0-0.2) Sodium Level 140 mmol/L (136-145) Potassium Level 2.8 mmol/L (3.5-5.1) Chloride Level 101 mmol/L (98-107) Carbon Dioxide Level 33 mmol/L (21-32) Anion Gap 6 (6-14) Blood Urea Nitrogen 12 mg/dL (7-20) Creatinine 0.8 mg/dL (0.6-1.0) Estimated GFR (Cockcroft-Gault) 67.7 Glucose Level 108 mg/dL (70-99) Calcium Level 8.6 mg/dL (8.5-10.1) Procalcitonin < 0.10 ng/mL (0.00-0.10) Medications Active Scripts Medications Dose Route/Sig Max Daily Dose Days Date Category Duoneb 0.5-3(2.5) Mg/3 Ml (Albuterol/Ipratropium) 3 Ml Ampul.neb 3 Ml NEB Q6HRS 07/16/21 Reported Vitamin C (Ascorbic Acid) 500 Mg Tablet 1,000 Mg PO DAILY 30 06/26/21 Rx Comments Chest x-ray reviewed 07/19/2021. Mild patchy interstitial infiltrate Chest x-ray reviewed 07/18/2021. No pneumothorax seen. Vascular markings improved. Impression . 1. Acute respiratory failure secondary to acute encephalopathy. Etiology not so obvious. Possible seizure. She had a CT angiogram and there was no significant large vessel occlusion. No significant stenosis of the cervical, carotid or vertebral arteries. Mental status improved. Extubated 07/18/2021 2. Abnormal chest x-ray 3. Moderate to severe protein-calorie malnutrition. 4. Bronchospasm. Cannot exclude CHF contributing to bronchospasm. Now resolved. 5. Possible pneumonia Plan . Updated 07/23 Currently on oxygen Respiratory status compensated Scheduled to go to [facility] once PCR is back CADEN VASQUEZ MD Jul 23, 2021 09:45
--- NOTE | 2021-07-23 11:29 | NUR ---
SS following up with discharge planning. SS reviewed pt chart and discussed with pt RN. Pt is skilled rehabilitation resident from [facility], ; fax [phone]. Pt is currently requiring oxygen at two liters nasal canula. PT/OT recommended half-way. Pt and pt's family agreeable for pt to return to [facility] at discharge. COVID19 PCR requested by facility. COVID19 PCR test pending at this time. Discharge orders received and sent to [facility]. Packet placed on chart. SS will continue to follow for discharge planning.
[2021-07-23 11:47] VITALS: BP 138/90
--- NOTE | 2021-07-23 11:52 | PDOC ---
[employer] PROGRESS NOTE Date of Service DOS: DATE: 07/23/21 TIME: 11:51 Chief Complaint Chief Complaint Acute respiratory failure with hypoxia (extubated 07/18/2021) Aspiration pneumonia HAP - gram-negative or gram-positive organism AMS History COPD History of Present Illness History of Present Illness 07/24/2019 Patient seen and examined Discussed with RN Chart reviewed She appears to be at her baseline We will try to discharge to [facility] 07/22/2021 Patient seen and examined She is still pleasantly confused Discussed with RN Chart reviewed 07/18: Afebrile. Extubated today, currently breathing on 4 L nasal cannula. Repeat CXR today shows increasing left basilar opacities; will continue Zosyn. Discussed with patient daughter by phone (DPOA), who states that patient would not want to be alive on a ventilator or have chest compressions performed again. Patient is a DNR going forward. Critical care time 30 minutes spent reviewing charts, reviewing labs, reviewing imaging, and discussion with RN. 07/19: Afebrile, on 3 L O2 cannula. CRP slightly high at 13.6. She is hyperglycemic today. We will continue Solu-Medrol and Zosyn. Will order MRSA PCR due to worsening pneumonia seen on chest x-ray. Patient is alert and conversive, but still confused. Family at bedside, discussed in great lengths DNR versus DNI, and CODE STATUS. Patient and DPOA are still agreeable to DNR. Advance Care Planning: Total time spent [id number] with patient 16 minutes in discussion with goals of care, comfort care, end-of-life care, pain management, code status; patient names her daughter as surrogate decision-maker. 07/20: Patient seen and evaluated in ICU. Breathing on BiPAP this morning. She has no complaints, still pleasantly demented. CXR from yesterday shows improved aeration of the left lower lobe with decreased opacity, however there is development of new mild basilar right lower lobe atelectasis/infiltrate. Continue Zosyn. She is stable to transfer out of ICU. Discussed with RN. 07/21: Patient evaluated with family at bedside. She has been moved to the medical floors. Currently on 2 L nasal cannula. We discussed patient's swallowing function and speech therapy recommendations. Anticipate discharge in the hospital tomorrow or the next day barring her clinical course. Pleasantly demented. She has questions about her levothyroxine. Per RN, she has no prescription for levothyroxine at her pharmacy. PT recommending SNU. Vitals/I&O Vitals/I&O: Vital Signs Date Time Temp Pulse Resp B/P (MAP) Pulse Ox O2 Delivery O2 Flow Rate FiO2 07/23/21 11:47 97.5 62 20 138/90 (106) 98 Nasal Cannula 2.0 97.5 I & O 07/22/21 07/22/21 07/23/21 15:00 23:00 07:00 Intake Total 600 ml 440 ml 100 ml Output Total 1100 ml Balance 600 ml -660 ml 100 ml Physical Exam General: Alert, Cooperative, No acute distress Heart: Regular rate Lungs: Wheezing (Resolved.) Abdomen: Soft Extremities: No cyanosis Skin: No rashes Assessment and Plan Assessmemt and Plan Problems Medical Problems: (1) AMS (altered mental status) Status: Acute (2) Respiratory failure Status: Acute Acute respiratory failure with hypoxia (extubated 07/18/2021) Aspiration pneumonia HAP - gram-negative or gram-positive organism AMS History COPD Plan We will try to discharge to senior living later today Comment Review of Relevant I have reviewed the following items chun (where applicable) has been applied. Medications: Current Medications Medications (Trade) Dose Ordered Sig/Nikkie Route PRN Reason Start Time Stop Time Status Last Admin Dose Admin Lactobacillus Rhamnosus (Culturelle) 1 cap BID PO 07/22/21 21:00 07/23/21 08:25 Justifications for Admission Other Justification Respiratory failure HENRRY YE III DO Jul 23, 2021 11:52
[2021-07-23 16:00] VITALS: BP 141/78
[2021-07-23] MEDS: ENOXAPARIN 40 MG/0.4 ML SYRINGE. SQ SCH (20:34)
[2021-07-23 20:39] VITALS: BP 127/71
[2021-07-23 23:07] VITALS: BP 122/66
[2021-07-24 03:12] VITALS: BP 121/67
[2021-07-24] MEDS: IV NORMAL SALINE 1000ML BAG 1,000 ML IV SCH (05:12)
[2021-07-24] MEDS: IPRATRPIUM/ALBUTEROL 0.5/2.5MG 3 ML NEBU. NEB SCH ×2 (07:31→07:32)
[2021-07-24] MEDS: PANTOPRAZOLE IV PUSH 40 MG VIAL. IVP SCH (07:48)
[2021-07-24] MEDS: LACTOBACILLUS RHAMNOSUS GG 1 CAPSULE. PO SCH (07:48)
[2021-07-24 08:00] VITALS: BP 149/83
[2021-07-24 08:34] LABS: CALCIUM 7.9 mg/dL (8.5-10.1); CREATININE 0.7 mg/dL (0.6-1.0); POTASSIUM 3.4 mmol/L (3.5-5.1)
--- NOTE | 2021-07-24 08:49 | NUR ---
SS following up with discharge planning. SS reviewed pt chart and discussed with pt RN. Pt is currently requiring oxygen at two liters nasal canula. COVID19 negative. PT/OT recommended custodial unit. Pt is skilled rehabilitation resident from [facility], ; fax [phone]. Discharge orders received for return to [facility]. Pt will discharge today and return to [facility] at 0930 via [facility] transport, [id number]. Pt, pt's RN, and pt's family notified.
--- NOTE | 2021-07-24 09:31 | PDOC ---
PULMONARY PROGRESS NOTES DATE: 07/24/21 TIME: 09:31 Subjective Patient sitting up in a chair on oxygen per nasal cannula Patient extubated 07/18/2021. Vitals Vital Signs Date Time Temp Pulse Resp B/P (MAP) Pulse Ox O2 Delivery O2 Flow Rate FiO2 07/24/21 08:00 97.6 67 18 149/83 (105) 97 Nasal Cannula 2.0 97.6 ROS: No Nausea, No Chest Pain, No Abdominal Pain, No Increase Cough General: Alert, No acute distress Lungs: Wheezing (Resolved.) Cardiovascular: S1 Extremities: No Edema Skin: Warm Labs Laboratory Tests Test 07/23/21 09:00 07/24/21 06:15 Coronavirus (COVID-19)(PCR) Not detected (NOT DETECTD) Sodium Level 143 mmol/L (136-145) Potassium Level 3.4 mmol/L (3.5-5.1) Chloride Level 106 mmol/L (98-107) Carbon Dioxide Level 33 mmol/L (21-32) Anion Gap 4 (6-14) Blood Urea Nitrogen 8 mg/dL (7-20) Creatinine 0.7 mg/dL (0.6-1.0) Estimated GFR (Cockcroft-Gault) 79.0 Glucose Level 67 mg/dL (70-99) Calcium Level 7.9 mg/dL (8.5-10.1) Laboratory Tests Test 07/24/21 06:15 Sodium Level 143 mmol/L (136-145) Potassium Level 3.4 mmol/L (3.5-5.1) Chloride Level 106 mmol/L (98-107) Carbon Dioxide Level 33 mmol/L (21-32) Anion Gap 4 (6-14) Blood Urea Nitrogen 8 mg/dL (7-20) Creatinine 0.7 mg/dL (0.6-1.0) Estimated GFR (Cockcroft-Gault) 79.0 Glucose Level 67 mg/dL (70-99) Calcium Level 7.9 mg/dL (8.5-10.1) Medications Active Scripts Medications Dose Route/Sig Max Daily Dose Days Date Category Duoneb 0.5-3(2.5) Mg/3 Ml (Albuterol/Ipratropium) 3 Ml Ampul.neb 3 Ml NEB Q6HRS 07/16/21 Reported Vitamin C (Ascorbic Acid) 500 Mg Tablet 1,000 Mg PO DAILY 30 06/26/21 Rx Comments Chest x-ray reviewed 07/19/2021. Mild patchy interstitial infiltrate Chest x-ray reviewed 07/18/2021. No pneumothorax seen. Vascular markings improved. Impression . 1. Acute respiratory failure secondary to acute encephalopathy. Etiology not so obvious. Possible seizure. She had a CT angiogram and there was no significant large vessel occlusion. No significant stenosis of the cervical, carotid or vertebral arteries. Mental status improved. Extubated 07/18/2021 2. Abnormal chest x-ray 3. Moderate to severe protein-calorie malnutrition. 4. Bronchospasm. Cannot exclude CHF contributing to bronchospasm. Now resolved. 5. Possible pneumonia Plan . Updated 07/23 Currently on oxygen Respiratory status compensated Scheduled to go to [facility] once PCR is back CADEN VASQUEZ MD Jul 24, 2021 09:31
--- NOTE | 2021-07-24 10:00 | NUR ---
Discharge Note: Patient was discharged/transferred back to [facility]. Patients IV was discontinued without any complications per RN OUTPATIENT SURGERY. Patient and family agreeable with discharge plans. Patient was transferred via wheelchair van with all personal belongings accompanied by our transport. Report was called to GLADYS Mccarty at [facility]. All discharge paperwork was sent with patient/transport over to facility.
--- NOTE | 2021-07-24 10:17 | PDOC ---
[employer] PROGRESS NOTE Date of Service DOS: DATE: 07/24/21 TIME: 10:17 Chief Complaint Chief Complaint Acute respiratory failure with hypoxia (extubated 07/18/2021) Aspiration pneumonia HAP - gram-negative or gram-positive organism AMS History COPD History of Present Illness History of Present Illness 07/24/2021 Patient seen and examined Discussed with RN Discussed with case management Chart reviewed We have it arranged for her to go to [facility] later today for prison 07/24/2019 Patient seen and examined Discussed with RN Chart reviewed She appears to be at her baseline We will try to discharge to [facility] 07/22/2021 Patient seen and examined She is still pleasantly confused Discussed with RN Chart reviewed 07/18: Afebrile. Extubated today, currently breathing on 4 L nasal cannula. Repeat CXR today shows increasing left basilar opacities; will continue Zosyn. Discussed with patient daughter by phone (DPOA), who states that patient would not want to be alive on a ventilator or have chest compressions performed again. Patient is a DNR going forward. Critical care time 30 minutes spent reviewing charts, reviewing labs, reviewing imaging, and discussion with RN. 07/19: Afebrile, on 3 L O2 cannula. CRP slightly high at 13.6. She is hyperglycemic today. We will continue Solu-Medrol and Zosyn. Will order MRSA PCR due to worsening pneumonia seen on chest x-ray. Patient is alert and conversive, but still confused. Family at bedside, discussed in great lengths DNR versus DNI, and CODE STATUS. Patient and DPOA are still agreeable to DNR. Advance Care Planning: Total time spent [id number] with patient 16 minutes in discussion with goals of care, comfort care, end-of-life care, pain management, code status; patient names her daughter as surrogate decision-maker. 07/20: Patient seen and evaluated in ICU. Breathing on BiPAP this morning. She has no complaints, still pleasantly demented. CXR from yesterday shows improved aeration of the left lower lobe with decreased opacity, however there is de velopment of new mild basilar right lower lobe atelectasis/infiltrate. Continue Zosyn. She is stable to transfer out of ICU. Discussed with RN. 07/21: Patient evaluated with family at bedside. She has been moved to the medical floors. Currently on 2 L nasal cannula. We discussed patient's swallowing function and speech therapy recommendations. Anticipate discharge in the hospital tomorrow or the next day barring her clinical course. Pleasantly demented. She has questions about her levothyroxine. Per RN, she has no prescription for levothyroxine at her pharmacy. PT recommending SNU. Vitals/I&O Vitals/I&O: Vital Signs Date Time Temp Pulse Resp B/P (MAP) Pulse Ox O2 Delivery O2 Flow Rate FiO2 07/24/21 08:00 97.6 67 18 149/83 (105) 97 Nasal Cannula 2.0 97.6 I & O 07/23/21 07/23/21 07/24/21 15:00 23:00 07:00 Intake Total 300 ml 0 ml Output Total 750 ml Balance 300 ml -750 ml Physical Exam General: Alert, Cooperative, No acute distress Heart: Regular rate Lungs: Wheezing (Resolved.) Abdomen: Soft Extremities: No cyanosis Skin: No rashes Labs Labs: Laboratory Tests Test 07/24/21 06:15 Sodium Level 143 mmol/L (136-145) Potassium Level 3.4 mmol/L (3.5-5.1) Chloride Level 106 mmol/L (98-107) Carbon Dioxide Level 33 mmol/L (21-32) Anion Gap 4 (6-14) Blood Urea Nitrogen 8 mg/dL (7-20) Creatinine 0.7 mg/dL (0.6-1.0) Estimated GFR (Cockcroft-Gault) 79.0 Glucose Level 67 mg/dL (70-99) Calcium Level 7.9 mg/dL (8.5-10.1) Assessment and Plan Assessmemt and Plan Problems Medical Problems: (1) AMS (altered mental status) Status: Acute (2) Respiratory failure Status: Acute Acute respiratory failure with hypoxia (extubated 07/18/2021) Aspiration pneumonia HAP - gram-negative or gram-positive organism AMS History COPD Plan We will try to discharge to prison later today Comment Review of Relevant I have reviewed the following items chun (where applicable) has been applied. Justifications for Admission Other Justification Respiratory failure HENRRY YE III DO Jul 24, 2021 10:17
== END 2021-07-24 10:00 | DRG 208 ==
LOC: ER 15:39 → 1 WEST ICU 17:28 → 2 NORTH 07-21 08:00 → 5 NORTH 07-21 16:10
PROVIDERS: ADMIT Internal Medicine; ATTEND Internal Medicine
PROC: 5A1945Z Respiratory Ventilation, 24-96 Consecutive Hours (ICD-10-PCS; 2021-07-16)
PROC: 0BH17EZ Insertion of Endotracheal Airway into Trachea, Via Natural or Artificial Opening (ICD-10-PCS; 2021-07-16)
PROC: 5A09357 Assistance with Respiratory Ventilation, Less than 24 Consecutive Hours, Continuous Positive Airway Pressure (ICD-10-PCS; 2021-07-16)
PROC: 5A09357 Assistance with Respiratory Ventilation, Less than 24 Consecutive Hours, Continuous Positive Airway Pressure (ICD-10-PCS; principal; 2021-07-18)
PROC: 5A09357 Assistance with Respiratory Ventilation, Less than 24 Consecutive Hours, Continuous Positive Airway Pressure (ICD-10-PCS; 2021-07-20)
DX: J69.0 Pneumonitis due to inhalation of food and vomit (principal); E43 Unspecified severe protein-calorie malnutrition; J96.01 Acute respiratory failure with hypoxia; G93.40 Encephalopathy, unspecified; J44.1 Chronic obstructive pulmonary disease with (acute) exacerbation; J90 Pleural effusion, not elsewhere classified; J98.11 Atelectasis; F03.90 Unspecified dementia, unspecified severity, without behavioral disturbance, psychotic disturbance, mood disturbance, and anxiety; F41.9 Anxiety disorder, unspecified; R13.10 Dysphagia, unspecified; Z66 Do not resuscitate; Z87.891 Personal history of nicotine dependence; Z20.822 Contact with and (suspected) exposure to COVID-19
CPT/HCPCS: 31500; 36415; 36600; 51702; 70450; 70496; 70498; 71045; 80048; 80053; 82805; 82962; 83735; 84100; 84145; 84484; 85025; 85610; 85730; 86140; 87641; 93005; 94002; 94003; 94640; 94660; 94760; 96374; 96375; C9113; J1650; J1940; J2543; J2704; J2920; J3010; J3490; J7030; Q9967; U0003; 92526-GN; 92610-GN; 97110-GP; 97116-GP; 97530-GO; 97530-GP; 97535-GO; 99291-25; G0378

== ENCOUNTER → 2021-08-15 | Outpatient (CLI) | payer MEDICARE ==
[2021-07-24 08:00] VITALS: BP 149/83
[~2021-08-15] MED LIST changes: +AMOX1TAB58 PO; +IPRA3AMP29 NEB; +METH4TAB2 PO
--- NOTE | 2021-08-17 15:50 | CARD ---
MR#: [id number] Date of Study: 08/15/2021 Ordering Physician: ALEIDA LO, Referring Physician: ALEIDA LO Tech: Matt Hendrickson [facility] APPROVED REPORT EXAM: Two-dimensional and M-mode echocardiogram with Doppler and color Doppler. Other Information Quality : AverageHR: 122bpm Rhythm : Tachycardia INDICATION COPD Increased edema RISK FACTORS Smoking 2D DIMENSIONS Left Atrium(2D)3.0 (1.6-4.0cm)IVSd0.9 (0.7-1.1cm) Aortic Root(2D)3.5 (2.0-3.7cm)LVDd4.2 (3.9-5.9cm) LVOT Diameter1.9 (1.8-2.4cm)PWd0.9 (0.7-1.1cm) LA Qbjhmb44 (18-58mL)LVDs2.2 (2.5-4.0cm) FS (%) 47.2 %SV61.6 ml LVEF(%)79.0 (>50%) Aortic Valve AoV Peak Colby.137.5cm/sAoV VTI24.2cm AO Peak GR.7.6mmHgLVOT Peak Colby.108.0cm/s LVOT VTI 18.34cmAO Mean GR.4mmHg RIO (VMAX)1.52ab9TWX (VTI)2.10cm2 Mitral Valve MV E Shfqjyxj55.1cm/sMV DECEL [id number] MV A Zbsovchx15.9cm/sMV YCC28yb E/A Ratio0.9MVA (PHT)2.40cm2 TDI E/Lateral E'7.2E/Medial E'9.9 Pulmonary Valve PV Peak Komidwao87.8cm/sPV Peak Grad.4mmHg Tricuspid Valve TR P. Sejtklte333qw/sTR Peak Gr.28mmHg Pulmonary Vein S1 Eyspmolz24.7cm/sD2 Sdgfvrfy67.3cm/s LEFT VENTRICLE The left ventricle is normal size. There is normal left ventricular wall thickness. The left ventricu lar systolic function is normal and the ejection fraction is within normal range. EF 55% There is nor mal LV segmental wall motion. Transmitral Doppler flow pattern is Grade I-abnormal relaxation pattern . No left ventricle thrombus noted on this study. There is no ventricular septal defect visualized. T here is no left ventricular aneurysm. There is no mass noted in the left ventricle. RIGHT VENTRICLE The right ventricle is normal size. There is normal right ventricular wall thickness. The right ventr icular systolic function is normal. ATRIA The left atrium size is normal. The right atrium size is normal. The interatrial septum is intact wit h no evidence for an atrial septal defect or patent foramen ovale as noted on 2-D or Doppler imaging. AORTIC VALVE The aortic valve is normal in structure and function. Doppler and Color Flow revealed no significant aortic regurgitation. There is no significant aortic valvular stenosis. There is no aortic valvular v egetation. MITRAL VALVE The mitral valve is normal in structure and function. There is no evidence of mitral valve prolapse. There is no mitral valve stenosis. Doppler and Color Flow revealed no mitral valve regurgitation note d. TRICUSPID VALVE The tricuspid valve is normal in structure and function. Doppler and Color Flow revealed mild tricusp id regurgitation. The PA pressure was estimated at 40 mmHg. There is no tricuspid valve prolapse or v egetation. There is no tricuspid valve stenosis. PULMONIC VALVE Doppler and Color Flow revealed no pulmonic valvular regurgitation. There is no pulmonic valvular minor nosis. GREAT VESSELS The aortic root is normal in size. The ascending aorta is normal in size. The IVC is normal in size a nd collapses >50% with inspiration. PERICARDIAL EFFUSION There is no pleural effusion. There is no evidence of significant pericardial effusion. Critical Notification Critical Value: No <Conclusion> The left ventricular systolic function is normal and the ejection fraction is within normal range. EF 55% There is normal LV segmental wall motion. Signed by : Reagan Rider, Electronically Approved : 08/17/2021 15:50:17
== END ==
LOC: ECHO 09:14
PROVIDERS: ATTEND Internal Medicine
DX: I07.1 Rheumatic tricuspid insufficiency (principal); R60.0 Localized edema
CPT/HCPCS: 93306; C8929

== ENCOUNTER → 2021-08-28 | Outpatient (CLI) | payer MEDICARE ==
[~2021-08-28] MED LIST changes: +BARIUM SULFATE 40% (APPLE) 148 GM PWD. PO ONE
--- NOTE | 2021-08-28 14:52 | RAD ---
DG VIDEO SWALLOW STUDY Reason for Examination: Reason: DYSPHAGIA, With the patient in the lateral projection, using video observation and recording, the patient was as ked to swallow barium liquid, barium nectar, barium impregnated pudding, and chew and swallow barium impregnated mixed consistency and cracker. Penetration with thin consistency utilizing a straw. No aspiration. Interpretation (personally supervised): Total fluoroscopy time was 1.7 minutes. Fluoroscopic spot images: 0 Impression: 1. No aspiration. Please refer to speech pathology notes for further details. Electronically signed by: Anthony Hernandez DO (08/28/2021 2:50 PM) [id number]
== END ==
LOC: RAD 13:00
PROVIDERS: ATTEND Internal Medicine
DX: R13.10 Dysphagia, unspecified (principal)
CPT/HCPCS: 74230; 92611-GN